=== PATIENT | male | born 1940 | race Two or more races ===

== ENCOUNTER 2025-01-07 02:25 | Inpatient (IN) | payer MEDICARE, SELFPAY ==
[2025-01-07] VITALS (33 sets, daily range): BP systolic 117–145; BP diastolic 32–92; PULSE 59–177; RESP 9–23; TEMP 36.3–37.3; O2SAT 94–100; BMI 22.7
--- NOTE | 2025-01-07 02:34 | EKG_ITS ---
[facility] Test Date: 2025-01-07 Pat Name: OTTO REGAN Department: Room: - Gender: Male Research Program Manager: : 1940 Requested By: ED Temporary Provider Order Number: [id number] Reading MD: ED Temporary Provider Measurements Intervals [place] Rate: 110 P: CA: QRS: -3 QRSD: 158 T: 114 QT: 379 QTc: 514 Interpretive Statements ATRIAL FIBRILLATION WITH RAPID VENTRICULAR RESPONSE LEFT BUNDLE BRANCH BLOCK [120+ ms QRS DURATION, 80+ ms Q/S IN V1/V2, 85+ ms R IN I/aVL/V5/V6] No previous ECG available for comparison /store/[email or web address]/[id number].pdf
--- NOTE | 2025-01-07 02:41 | XR_ITS ---
EXAMINATION: AP chest single view TECHNIQUE: AP portable upright chest single view Date and time: January 07, 2025, 0243 hours, comparison July 28, 2015. INDICATIONS: Shortness of breath today. FINDINGS: Mild CHF Moderate enlargement cardiac contour. Prominent vascular congestion including central vascular engorgement Interstitial pulmonary edema Prominent osteopenia IMPRESSION: Mild CHF
--- NOTE | 2025-01-07 02:41 | EDNOTE_ITS ---
ED SOB =RME/HPI General Chief Complaint: Shortness of Breath/Dyspnea Stated Complaint: SOB Time Seen by Provider: 01/07/25 02:37 Arrival date/time: 01/07/25 02:25 RME / HPI RME / HPI Narrative: DR. SMITH MAIN ED EVALUATION: Patient arrives by EMS after patient reports sudden onset shortness of breath, moderately in distress with oxygen saturations in the mid 80th percentile. Patient placed on monitor, transported with 2 serial nebulizer treatments en route with increase of O2 saturation to 95% on 6 L NC. No reported chest pain. PMH: Parkinson's Disease PSH: Non-contributory Allergies: None Social: Remote history of smoking, no alcoholism, no illicit drug abuse Related Data Home Medications ?Medication ?Instructions ?Recorded ?Confirmed bumetanide 1 mg tablet 1 mg PO BID 01/07/25 5 carbidopa ER 50 mg-levodopa 200 mg 1 tab PO TID 01/07/25 tablet,extended release furosemide 20 mg tablet (Lasix) 20 mg PO BID 01/07/25 01/07/25 losartan 50 mg tablet 50 mg PO QDAY 01/07/2501/07 rivaroxaban 20 mg tablet (Xarelto) 20 mg PO QDAY 01/0701/07/25 Allergies Allergy/AdvReac Type Severity Reaction Status Date / Time No Known Allergies Allergy Verified 01/07/25 02:36 Review of Systems Review of Systems Systems Reviewed: All systems reviewed, normal except as documented Past Medical History Past Medical History NEUROLOGIC: Positive Parkinson's Disease ED Exam Narrative Physical exam: GEN. APPEARANCE: The patient is alert awake oriented X-3, lying down comfortably, chronically ill-appearing. Patient has good eye contact. Patient is cooperative. Mild respiratory distress quite pale with mask-like facies. VITALS: All vitals were reviewed and the pulse ox is 96% on 2 L/minute via NC, which is normal according to my interpretation. HEENT: Normocephalic, atraumatic and nontender. Pupils are equal and reactive. Oral mucosa is moist. NECK: Supple, nontender, no meningismus, no JVD. There is no thyromegaly and no lymphadenopathy. CHEST: Nontender on palpation no deformity and no crepitus. CARDIOVASCULAR: Heart rapid irregular irregular, loud systolic murmur, no gallop rub or extra beats. LUNGS: Diminished breath sounds bilaterally with symmetrical chest rise. No intercostal subcostal retraction. No rales and no rhonchi. ABDOMEN: Soft, flat, nontender to palpation, no guarding or rebound tenderness. There are no abnormal masses palpated. No pulsatile masses or bruits. Active and normal bowel sounds. RECTAL: Normal appearing stool, hemmocult negative. EXTREMITIES: Normal inspection and palpation. 1+ edema. No cyanosis. Patient is able to move all 4 extremities well SKIN: Warm and dry, no rashes noted. MUSCULOSKELETAL: No lumbar or midline bony tenderness. There is no CVA tenderness. No paraspinal muscle spasm or tenderness. NEURO: Cranial nerves II through XII grossly intact. There are no focal neurologic deficits noted. GCS is 15 PSYCHIATRIC: Patient is in normal mood and affect, cooperative. LYMPHATICS: No major lymphadenopathy noted. Course Quality Measures none Orders Category Date Time Status COVID-19 Screening Questionnaire NOW Care 01/07/25 04:30 Active Knitter Hand STAT Care 01/07/25 02:38 Active Continuous Pulse Oximetry STAT Care 01/07/25 02:38 Active EKG (ED ONLY) *Do not use* NOW Care 01/07/25 02:34 Completed In and Out Catheter X1 Care 01/07/25 02:35 Completed In and Out Catheter X1PRN Care 01/07/25 02:37 Completed Insert IV NOW Care 01/07/25 02:35 Active Insert IV NOW Care 01/07/25 02:38 Active NPO STAT Care 01/07/25 02:38 Active Strict Intake and Output Routine Care 01/07/25 02:38 Ordered EKG (ED Only) Stat Exams 01/07/25 02:34 Draft XR chest 1V portable Stat Exams 01/07/25 02:41 Taken B-Type Natriuretic Peptide Stat Lab 01/07/25 02:45 Completed Blood Culture (Lab) Stat Lab 01/07/25 02:47 Received CBC Stat Lab 01/07/25 02:45 Completed Comprehensive Metabolic Panel Stat Lab 01/07/25 02:45 Completed D-Dimer Stat Lab 01/07/25 02:45 Completed Influenza A & B Rapid Panel Stat Lab 01/07/25 02:37 Completed LDH (Lactate Dehydrogenase) Stat Lab 01/07/25 02:45 Completed Lactate (Lactic Acid) Stat Lab 01/07/25 02:45 Results Lipase Stat Lab 01/07/25 02:45 Completed Magnesium Stat Lab 01/07/25 02:45 Completed Occult Blood, Stool (LAB) Stat Lab 01/07/25 04:29 Ordered Partial Thromboplastin Time Stat Lab 01/07/25 02:45 Completed Phosphorous Stat Lab 01/07/25 02:45 Completed Procalcitonin Stat Lab 01/07/25 02:45 Completed Prothrombin Time with INR Stat Lab 01/07/25 02:45 Completed Troponin I Stat Lab 01/07/25 02:45 Completed Urinalysis, C/S if Indicated Stat Lab 01/07/25 02:44 Completed Acetaminophen Licha [Tylenol Licha] Med 01/07/25 02:37 Active 1,000 mg PO Q8H PRN Diltiazem Inj [Cardizem Inj] Med 01/07/25 03:30 Active 5 mg IV X1 PRN Levofloxacin/D5w 750Mg Ivpb [Levaquin Ivpb] Med 01/07/25 02:37 Discontinued 750 mg in 150 ml IV X1 Piper/Tazo 3.375 gm Premix [Zosyn] Med 01/07/25 02:37 Discontinued 3.375 gm in 50 ml IV X1 Ringers Lactated 500 ml [Lactated Ringers] 500 ml Med 01/07/25 03:55 Discontinued IV 999 mls/hr Sodium Chloride 0.9% 500 ml [Ns] 500 ml Med 01/07/25 03:56 Discontinued IV 999 mls/hr Oxygen Delivery NOW RT 01/07/25 02:38 Active Vital Signs Vital signs: Vital Signs Temperature 99.1 F 01/07/25 02:37 Pulse Rate 116 H 01/07/25 02:37 Respiratory Rate 14 01/07/25 02:37 Blood Pressure 134/89 H 01/07/25 02:37 Pulse Oximetry (%) 96 01/07/25 02:37 Oxygen Delivery Method Nasal Cannula 01/07/25 02:37 Oxygen Flow Rate 2 01/07/25 02:37 PROCEDURES: Stool Hemoccult Procedural Steps Taken: stool placed in appropriate test area, developer placed on stool and control areas and controls appropriately positive and negative Hemoccult result: negative Shortness of Breath / Dyspnea MDM Narrative MDM Narrative:: Scribe Attestation: I, Emmy Oneil, am scribing for and in the presence of Dr. Smith. Provider Notation: Although this document has been carefully reviewed, there may still be some phonetic and other typographical errors. These errors are purely grammatical due to imperfections in the software program and should not be construed in any way to compromise the substance of the patient's medical care during this visit. Patient arrives by EMS after patient reports sudden onset shortness of breath, moderately in distress with oxygen saturations in the mid 80th percentile. Patient placed on monitor, transported with 2 serial nebulizer treatments en route with increase of O2 saturation to 95% on 6 L NC. Please see PE findings. Patient placed on microwave remote sensing scientist and underwent basic cardiac workup and to be in A-fib RVR treated with IV Diltiazem with prompt reduction in HR. EKG without signs of ischemia. Informal bedside US demonstrates EF 30-35% and collapsing IVC with inspiration suggested intravascular depletion, this is confirmed with elevated NaCl. No evidence of PNA or UTI. Patient treated with nebulizer therapy and IV steroids with an overall clinical improvement. Final diagnoses include A Fib RVR, COPD exacerbation, Anemia, and Dehydration. Patient data External records reviewed:: [facility] previous records (No prior ED records available for review) and EMS form Clinical information provided by:: patient and EMS Social determinants that could affect healthcare access:: none Patient has the following chronic illnesses:: Parkinson's Disease How is presenting disease/condition affected by chronic disease/condition?: exacerbated by Evaluation data The following diagnostics were reviewed and interpreted by me:: lab results, radiology exam(s) and EKG tracing(s) (Atrial fibrillation RVR with rate of 110 bpm, underlying LBBB, no clare ectopy, axis is leftward, per my interpretation.) Lab and/or radiology exams considered but not ordered:: None Interpretation Summary: RADIOLOGY Chest X-Ray: Pending official radiology report. Medications / Prescriptions Medications or Prescriptions considered but not ordered:: None Medication administrations:: Medication Administration History Acetaminophen (Acetaminophen Licha 325 Mg/10 Ml Udc) 1,000 mg PO Q8H PRN PRN Reason: Fever > 100.4 Stop: 02/06/25 02:36 Diltiazem HCl (Diltiazem Inj 5 Mg/Ml Vial 5 Ml) 5 mg IV X1 PRN PRN Reason: Tachycardia to a total of 30mg Stop: 02/06/25 03:29 Last Admin: 01/07/25 03:37 Dose: 5 mg Documented By: DT Discontinued Medications Piperacillin/Tazobactam/Dextrose (Zosyn) 3.375 gm in 50 mls @ 100 mls/hr IV X1 ONE Stop: 01/07/25 03:06 Last Infusion: 01/07/25 03:07 Dose: Infused Documented By: Admin: 01/07/25 02:47 Dose: 100 mls/hr Documented By: CAROLYNE Levofloxacin/Dextrose (Levaquin Ivpb) 750 mg in 150 mls @ 100 mls/hr IV X1 ONE Stop: 01/07/25 04:06 Last Admin: 01/07/25 03:25 Dose: 100 mls/hr Documented By: DT Lactated Ringer's (Lactated Ringers) 500 mls @ 999 mls/hr IV .Q31M ONE Stop: 01/07/25 04:25 Last Admin: 01/07/25 03:56 Dose: Not Given Documented By: DT Non-Admin Reason: Cancelled by Provider Sodium Chloride (Ns) 500 mls @ 999 mls/hr IV .Q31M ONE Stop: 01/07/25 04:26 Last Admin: 01/07/25 04:13 Dose: 999 mls/hr Documented By: DT See above if any Consultations Consultation(s) initiated? (list below): Yes Consultation #1 (Physician, Specialty, Details): Discussed with Dr. Nieves for admission. Reviewed the patient?s HPI, PMHx, lab and/or radiology results. Discussed treatment plan. Will consult an admission to the hospitalist. Time: 04:37 Diagnosis Shortness of Breath Differential Diagnosis: congestive heart failure, community acquired pneumonia and pulmonary embolism Most likely diagnosis given after review of the tests above:: A Fib RVR, COPD exacerbation, Anemia, and Dehydration. Admission Indicated Admission indicated?: indicated Explain why admission is indicated or not indicated:: A Fib RVR, COPD exacerbation, Anemia, and Dehydration. Admission Request Was there a request for admission?: Yes Admission Attestation Admission request attestation: Discussed case with [] from Hospitalist service regarding admission. Discussed patients ED course, exam findings, labs, and radiology results. The Hospitalist [agrees,declines] to accept the patient for admission. Disposition Plan Disposition Plan: Admit Critical Care Time Critical Care Time Critical Care Time: Yes Total Critical Care Time (min.): 45 Attestation: The high probability of sudden, clinically significant deterioration in the patient?s condition required the highest level of my preparedness to intervene urgently. The services I provided to this patient were to treat and/or prevent clinically significant deterioration. Services included the following: chart data review, reviewing nursing notes and/or old charts, documentation time, universal branch consultant collaboration regarding findings and treatment options, medication orders and management, direct patient care, vital sign assessments and ordering, interpreting and reviewing diagnostic studies and lab tests. Aggregate critical care time includes only time during which I was engaged in wo rk directly related to the patient?s care, as described above, whether at bedside or elsewhere in the Emergency Department. It did not include time spent performing other reported procedures or the services of residents, students, nurses or physician assistants. Discharge Plan Plan Patient Disposition: Admit Acute Care w/in Hospital Prescriptions/Referrals Prescriptions/Med Rec: No Action carbidopa-levodopa 50-200 mg tablet extended release 1 tab PO TID Rx Instructions: divide evenly over waking hours losartan 50 mg tablet 50 mg PO QDAY bumetanide 1 mg tablet 1 mg PO BID furosemide [Lasix] 20 mg tablet 20 mg PO BID Xarelto 20 mg tablet 20 mg PO QDAY Rx Instructions: must administer with evening meal Problem List Clinical Impression: Atrial fibrillation with RVR, COPD exacerbation, Dehydration, Anemia Patient/Caregiver Discharge Instructions Print Language: Colombian Stand Alone Forms: fflap Info., Patient Portal Info Letter
[2025-01-07] MEDS: PIPER/TAZO 3.375 GM PREMIX 3.375 GM/50 ML BAG IV (02:47)
[2025-01-07 02:52] LABS: Collection Type, Urine Clean Catch; Squamous Epithelial Cell,Urine 0 /hpf (0-5)
[2025-01-07 02:54] LABS: Lactate (Lactic Acid) 2.5 mMol/L (0.4-2.0)
[2025-01-07 02:57] LABS: Basophils # (Auto) 0.0 Thou/mm3 (0.0-0.2); Basophils % (Auto) 1 % (0-2.5); Eosinophils # (Auto) 0.1 Thou/mm3 (0.0-0.5); Eosinophils % (Auto) 2 % (0-10); Hematocrit 24.2 % (41.0-53.0); Immature Granulocytes Auto 0.02 Thou/mm3 (0.00-0.00); Lymphocytes # (Auto) 0.4 Thou/mm3 (1.0-4.8); Lymphocytes % (Auto) 12 % (10-50); Mean Corpuscular HGB Conc 28.9 g/dl (31.0-37.0); Mean Corpuscular Hemoglobin 22.0 pg (25.0-35.0); Mean Corpuscular Volume 76 fL (80-100); Monocytes # (Auto) 0.3 Thou/mm3 (0.0-0.8); Monocytes % (Auto) 8 % (0-12); Neutrophils # (Auto) 2.6 Thou/mm3 (1.8-7.7); Neutrophils % (Auto) 76 % (37-80); Nucleated Red Blood Cell # 0.02 Thou/mm3 (0.00-0.00); Nucleated Red Blood Cell % 1 /100 WBC (0); Platelet Count 147 Thou/mm3 (140-440); RDW Standard Deviation 56.9 fL (35.1-43.9); Red Blood Count 3.18 Miln/mm3 (4.50-5.90); White Blood Count 3.4 Thou/mm3 (3.8-10.6)
[2025-01-07 02:58] LABS: Bilirubin,Urine Negative (Negative); Blood,Urine Negative (Negative); Clarity,Urine Clear (Clear/Hazy); Color,Urine Yellow (Lt Yel-Yel); Culture Indicated,Urine Not Indicated; Glucose, Urine Negative (Negative); Ketones,Urine Negative (Negative); Leukocyte Esterase,Urine Negative (Negative); Nitrite,Urine Negative (Negative); PH,Urine 5.5 (5.0-7.0); Protein,Urine Trace (Neg - Trace); RBC,Urine 1 /hpf (0-3); Specific Gravity,Urine 1.027 (1.001-1.035); Urobilinogen,Urine 2.0 mg/dL (0.0-1.0); WBC,Urine 2 /hpf (0-5)
[2025-01-07 03:21] LABS: Hemoglobin 7.0 g/dL (13.5-16.0)
[2025-01-07 03:22] LABS: Alanine Aminotransferase 20 U/L (10-49); Albumin, Serum 4.6 gm/dL (3.4-4.8); Albumin/Globulin Ratio 2.3 (1.2-2.2); Alkaline Phosphatase 81 U/L (46-116); Anion Gap 13 (7-16); Aspartate Amino Transferase 27 U/L (0-34); BUN/Creatinine Ratio 27 Ratio (12-20); Bilirubin,Total 1.8 mg/dL (0.3-1.2); Blood Urea Nitrogen 27 mg/dL (9-23); Calcium 9.3 mg/dL (8.3-10.6); Calcium (Corrected) 9.3 mg/dL (8.5-10.1); Carbon Dioxide 22.6 mMol/L (20.0-31.0); Chloride 110 mMol/L (98-107); Creatinine (Component) 1.0 mg/dL (0.6-1.3); Estimated Creatinine Clearance 60.2 mL/min (>60); Globulin 2.0 gm/dL (2.3-3.5); Glucose 106 mg/dL (74-106); LDH (Lactate Dehydrogenase) 230 U/L (120-246); Lipase 25 U/L (12-53); Magnesium 2.2 mg/dL (1.6-2.6); Osmolality,Calculated 295 (275-295); Phosphorous 4.0 mg/dL (2.4-5.1); Potassium 4.7 mMol/L (3.4-5.1); Procalcitonin 0.08 ng/ml (0.0-0.49); Sodium 146 mMol/L (136-145); Total Protein 6.6 gm/dL (5.7-8.2); Troponin I 0.024 ng/mL (0.0-0.045); eGFR > 60 See Note
[2025-01-07 03:25] LABS: B-Type Natriuretic Peptide 878 pg/mL (0-100)
[2025-01-07] MEDS: LEVOFLOXACIN/D5W 750MG IVPB 750 MG/150 ML BAG 100 MG IV (03:25)
[2025-01-07 03:27] LABS: INR 1.6 (0.9-1.3); Partial Thromboplastin Time 36.2 Seconds (22.0-36.0); Prothrombin Time 16.0 Seconds (9.0-12.2)
[2025-01-07 03:27] LABS: Influenza A Ag Negative; Influenza B Ag Negative
[2025-01-07 03:36] LABS: D-Dimer < 250 ng/mL (<600)
[2025-01-07] MEDS: DILTIAZEM INJ 5 MG/ML VIAL 5 ML IV (03:37)
[2025-01-07] MEDS: SODIUM CHLORIDE 0.9% 500 ML 500 ML 999 ML IV (04:13)
[2025-01-07 04:52] LABS: OBS Card Lot # 0124; OBS Developer Lot # 750276; OBS Performed By MACIS3; OBS QC OK? Yes; Occult Blood, Stool Negative (Negative)
[2025-01-07] MEDS: ALBUTEROL/IPRATROPIUM (Duoneb) RT SOL 3 ML NEBU INH ×6 (04:58→23:37)
[2025-01-07] MEDS: DEXAMETHASONE SOD PHOS INJ 10 MG/ML VIAL IVP (05:04)
[2025-01-07] MEDS: DILTIAZEM CD 120 MG CAPCR PO (05:23)
--- NOTE | 2025-01-07 05:46 | ECHO_ITS ---
Patient Info Name: Marvin Jackson Age: 84 years : 1940 Gender: Male Ht: 188 cm Wt: 80 kg BSA: 2.05 m2 BP: 120 / 81 mmHg HR: 80 bpm Exam Date: 01/07/2025 1:40 PM Admit Date: 01/07/2025 Site: [facility] Patient Status: I Exam Type: CA echo doppler complete Charter Boat Operator: Racheal Nunez Ordering Physician: Mk Barton Study Info Indications CHF - Primary Location: [id number] Left Ventricular Outflow Tract Name Value Normal LVOT 2D LVOT Diameter 1.9 cm LVOT Doppler LVOT Peak Velocity 117 cm/s LVOT Mean Gradient 3 mmHg LVOT VTI 21 cm LVOT VTI/AV VTI Ratio 0.7 LVOT Stroke Volume 61 ml Pulmonic Valve Name Value Normal PV Doppler PV Peak Velocity 115 cm/s PV Regurgitation Doppler [place] Peak End Diastolic Velocity 105 cm/s Tricuspid Valve Name Value Normal TV Regurgitation Doppler TR Peak Velocity 331 cm/s Estimated PAP/RSVP RA Pressure 10 mmHg <=5 PA Systolic Pressure 54 mmHg <36 RV Systolic Pressure 54 mmHg <36 Aortic Valve Name Value Normal AV 2D/MM AV Cusp Sep (MM) 1.5 cm AV Doppler AV Peak Velocity 158 cm/s AV Mean Gradient 6 mmHg AV VTI 29 cm AV Area (Cont Eq VTI) 2.1 cm2 >=3.0 AV Area (Cont Eq Keshawn) 2.1 cm2 AV DI (Keshawn) 0.74 AV Regurgitation 2D LVOT Area 2.8 cm2 AV Regurgitation Doppler AR Decel [place] 180 cm/s2 AR PHT 657 ms Ventricles Name Value Normal LV Dimensions 2D/MM IVS Diastolic Thickness (2D) 1.0 cm 0.6-1.0 LVID Diastole (2D) 5.3 cm 4.2-5.8 LVIW Diastolic Thickness (2D) 1.2 cm 0.6-1.0 LVID Systole (2D) 4.7 cm 2.5-4.0 LVOT Diameter 1.9 cm LV Mass (2D Cubed) 227.73 g 88.00-224.00 LV Mass Index (2D Cubed) 111 g/m2 49-115 Relative Wall Thickness (2D) 0.45 <=0.42 IVS/LVIW Diastolic Thickness (2D) 0.83 0.00-1.50 LV Fractional Shortening/Ejection Fraction 2D/MM LV Fractional Shortening (2D) 11 % 25-43 LV EF (2D Teichholz) 24 % LV Diastolic Volume (4C MOD) 159 ml LV EF (4C MOD) 25 % LV Diastolic Volume (2C MOD) 151 ml LV EF (2C MOD) 42 % LV Diastolic Volume (BP MOD) 160 ml 62-150 LV Diastolic Volume Index (BP MOD) 78 ml/m2 34-74 LV Systolic Volume (BP MOD) 104 ml 21-61 LV Systolic Volume Index (BP MOD) 51 ml/m2 11-31 LV EF (BP MOD) 35 % 52-72 LV Diastolic Length (4C) 8.2 cm LV Systolic Length (4C) 7.7 cm LV Stroke Volume (4C MOD) 40 ml Atria Name Value Normal LA Dimensions LA Volume (4C A-L) 179 ml LA Volume (BP A-L) 192 ml Left Ventricle Left ventricular chamber dimension is normal. Left ventricular systolic function is normal with visually estimated ejection fraction of 55-60%. There is mild concentric hypertrophy noted in the left ventricle. The apex, and inferoseptal wall are hypokinetic. The basal inferior wall, mid inferior wall, basal anterior wall, mid anterior wall, basal anterolateral wall, mid anterolateral wall, basal anteroseptal, mid anteroseptal, basal inferolateral wall, and mid inferolateral wall are not scored. Left ventricular segmental wall motion is normal. The left ventricular diastolic function is grade II diastolic dysfunction. Right Ventricle Right ventricular chamber dimension is normal. Right ventricular systolic function is reduced. Left Atrium Left atrial chamber dimension is severely enlarged. Right Atrium Right atrial chamber dimension is severely enlarged. Aortic Valve The aortic valve is trileaflet. There is moderate aortic valve sclerosis. There is mild aortic valve stenosis with a peak velocity of 158 cm/s, mean gradient of 6 mmHg, and aortic valve area of 2.1 cm2. There is moderate aortic valve regurgitation. Pulmonic Valve The pulmonic valve is normal. There is no pulmonic valve stenosis. There is mild pulmonic regurgitation. Mitral Valve The mitral valve has thickened leaflets. There is no mitral valve stenosis. There is severe mitral valve regurgitation. Tricuspid Valve The tricuspid valve leaflets are normal. There is no significant tricuspid valve stenosis. There is moderate to severe tricuspid valve regurgitation. Moderate pulmonary hypertension, estimated pulmonary arterial systolic pressure is 54 mmHg and systemic blood pressure of 120 mmHg in systole. Pericardium/Pleural The pericardium appears normal. There is no pericardial effusion. No pleural effusion visualized. Inferior Vena Cava Normal inferior vena cava with >50% collapse upon inspiration consistent with normal right atrial pressure, 10 mmHg. Aorta The aortic measurements are indexed to age and body surface area. The aortic root at the sinus of Valsalva is not well visualized. The prox ascending aorta is not well visualized. Summary 1. Left ventricle size is normal and systolic function is normal. Visually estimated ejection fraction is 55-60%. There is grade II diastolic dysfunction.There is mild concentric hypertrophy noted. 2. Right ventricle size is normal and systolic function is reduced. Estimated PASP is 54 mmHg. Severe pulmonary hypertension. 3. There is moderate aortic valve sclerosis with mild stenosis and moderate regurgitation. 4. There is mild mitral valve stenosis and severe regurgitation. Thickened valves. 5. There is no significant tricuspid valve stenosis and moderate to severe regurgitation. 6. The left atrium is severely enlarged. The right atrium is severely enlarged. Report Signatures Finalized by Graham Hawkins on 01/09/2025 01:16 PM
[2025-01-07 05:49] LABS: Reflex Lactate? Y
--- NOTE | 2025-01-07 05:49 | ESHP_ITS ---
Documentation for date of: 01/07/25 [facility] History of Present Illness Chief complaint: Shortness of breath History of present illness: This is a 84-year-old male with past medical history of parkinsonism on levodopa carbidopa, atrial fibrillation on Xarelto presented to the ED with complaints of shortness of breath since last 5 days. At baseline he does not utilize oxygen at his home but uses walker to walk around. He complains his shortness of breath is worsening since last 5 days but denies any chest pain, chest tightness. He endorses occasional palpitations and occasional cough but denies any increased sputum volume, purulence. He denies any abdominal pain, nausea, vomiting, diarrhea, urinary urgency, urinary frequency, fever or any recent sick contacts. He denies any increased water intake, decreased urine output. Today ED visit vitals initial BP 134/89, pulse rate 116, respiratory 14,Temperature 99.1 F, saturating 80% on room air increased to 96% on 6 L of nasal cannula. Pertinent lab findings hemoglobin 17, hematocrit 24.2, MCV 76, MCH 22, MCHC 28.9, RDW 56.9. Sodium 146, chloride 110, BUN 27. PT/INR/APTT?16/1.6/36.2, lactate 2.5, total bilirubin?1.8, BNP 878,, D-dimer normal, troponin normal. Imaging findings chest x-ray showing mild vascular congestion and mild CHF, EKG showing A-fib with right ventricular response and left bundle branch block V1/V2. Plan given in ED levofloxacin 750 mg, pip-tazo 3.375 mg, NS 500 cc, diltiazem 125 mg, DuoNebs, dexamethasone 10 mg Past medical history: Parkinsonism on levodopa carbidopa. Atrial fibrillation takes Xarelto. Currently not taking any water pills. He used to take inhalers in the past but denies current use Social history: Used to smoke in the past but denies current smoking and endorses occasional drinking Family history: Noncontributory Allergy history: NKDA Review of Systems Review of Systems Systems Reviewed: All systems reviewed, normal except as documented Exam Vital Signs Temp Pulse Resp BP Pulse Ox O2 Del Method O2 Flow Rate 98.9 F 98 21 H 132/84 H 100 Nasal Cannula 5 01/07/25 04:20 01/07/25 05:23 01/07/25 05:01 01/07/25 05:23 01/07/25 05:01 01/07/25 04:20 01/07/25 05:01 Narrative Exam GENERAL: NAD, AAOx3 HEENT: Moist mucosa. Eyes open, symmetrical, & clear CARDIO: Rapid Irregular rhythm Noted. No Murmurs. PULM: wheezing noted on B/L Lung Veloz GI: Abdomen soft, nondistended, non Tender SKIN/MSK/EXT: No wounds/rashes/amputations, no pain on palpation.Edema on B/L legs upto knee 3+. Pedal pulses present B/L, B/L Chronic pigmentation seen upto the valenzuela . NEURO: AAOx3, no focal neuro deficits, able to move all 4 extremities, B/L resting Tremors Results: Labs 01/07/25 13:19 01/07/25 02:45 Labs: Short CBC 01/07/25 Range/Units 02:45 WBC 3.4 L (3.8-10.6) Thou/mm3 Hgb 7.0 L (13.5-16.0) g/dL Hct 24.2 L (41.0-53.0) % Plt Count 147 (140-440) Thou/mm3 BMP 01/07/25 02:45 Sodium 146 H Potassium 4.7 Chloride 110 H Carbon Dioxide 22.6 BUN 27 H Creatinine 1.0 Glucose 106 Calcium 9.3 Cardiac Enzymes 01/07/25 Range/Units 02:45 Troponin I 0.024 (0.0-0.045) ng/mL Liver Function 01/07/25 Range/Units 02:45 Total Bilirubin 1.8 H (0.3-1.2) mg/dL AST 27 (0-34) U/L ALT 20 (10-49) U/L Alkaline Phosphatase 81 (46-116) U/L Albumin 4.6 (3.4-4.8) gm/dL Urine 01/07/25 Range/Units 02:44 Urine Color Yellow (Lt Yel-Yel) Urine Clarity Clear (Clear/Hazy) Urine pH 5.5 (5.0-7.0) Ur Specific [place] 1.027 (1.001-1.035) Urine Protein Trace (Neg - Trace) Urine Glucose (UA) Negative (Negative) Quality Measures Quality Measures none Advance care planning discussed with:: patient Medications Home Medications and Allergies Home Medications ?Medication ?Instructions ?Recorded ?Confirmed ?Type bumetanide 1 mg tablet 1 mg PO BID 01/07/25 5 History carbidopa ER 50 mg-levodopa 200 mg 1 tab PO TID 01/07/25 History tablet,extended release furosemide 20 mg tablet (Lasix) 20 mg PO BID 01/07/25 01/07/25 History losartan 50 mg tablet 50 mg PO QDAY 01/07/2501/07 History rivaroxaban 20 mg tablet (Xarelto) 20 mg PO QDAY 01/0701/07/25 History Allergies Allergy/AdvReac Type Severity Reaction Status Date / Time No Known Allergies Allergy Verified 01/07/25 02:36 Visit Medications Acetaminophen (Acetaminophen Licha 325 Mg/10 Ml Udc) 1,000 mg PO Q8H PRN PRN Reason: Fever > 100.4 Stop: 02/06/25 02:36 Acetaminophen (Acetaminophen 325 Mg Tablet) 650 mg PO Q6H PRN PRN Reason: Fever >100.4 Stop: 02/06/25 05:38 Albuterol/Ipratropium (Albuterol/Ipratropium (Duoneb) Rt Licha 3 Ml Nebu) 3 ml INH Q4HRRT [facility] Stop: 02/06/25 06:59 Albuterol/Ipratropium (Albuterol/Ipratropium (Duoneb) Rt Licha 3 Ml Nebu) 3 ml INH Q2HR PRN PRN Reason: SHORTNESS OF BREATH OR WHEEZE Stop: 02/06/25 05:38 Carbidopa/Levodopa (Carbidopa/Levodopa Cr 50/200 Tabcr) 1 tab PO TID [facility] Stop: 02/06/25 05:59 Diltiazem HCl (Diltiazem Inj 5 Mg/Ml Vial 5 Ml) 5 mg IV X1 PRN PRN Reason: Tachycardia to a total of 30mg Stop: 02/06/25 03:29 Last Admin: 01/07/25 03:37 Dose: 5 mg Azithromycin 500 mg/ Sodium (Chloride) 250 mls @ 250 mls/hr IV QDAY [facility] Stop: 01/14/25 05:43 Losartan Potassium (Losartan Potassium 25 Mg Tablet) 50 mg PO QDAY [facility] Stop: 02/06/25 08:59 Methylprednisolone Sodium Succinate (Methylprednisolone Sod Succ 40 Mg/Ml Vial) 40 mg IVP QDAY NATHALY Stop: 01/14/25 08:59 Non-Formulary Medication (Rivaroxaban [Xarelto]) 20 mg PO QDAY NATHALY Stop: 02/06/25 08:59 Discontinued Medications Albuterol/Ipratropium (Albuterol/Ipratropium (Duoneb) Rt Licha 3 Ml Nebu) 3 ml INH X1 ONE Stop: 01/07/25 04:42 Last Admin: 01/07/25 04:58 Dose: 3 ml Dexamethasone Sodium Phosphate (Dexamethasone Sod Phos Inj 10 Mg/Ml Vial) 10 mg IVP X1 ONE Stop: 01/07/25 04:42 Last Admin: 01/07/25 05:04 Dose: 10 mg Diltiazem HCl (Diltiazem Cd 120 Mg Capcr) 120 mg PO X1 ONE Stop: 01/07/25 04:42 Last Admin: 01/07/25 05:23 Dose: 120 mg Piperacillin/Tazobactam/Dextrose (Zosyn) 3.375 gm in 50 mls @ 100 mls/hr IV X1 ONE Stop: 01/07/25 03:06 Last Infusion: 01/07/25 03:07 Dose: Infused Levofloxacin/Dextrose (Levaquin Ivpb) 750 mg in 150 mls @ 100 mls/hr IV X1 ONE Stop: 01/07/25 04:06 Last Infusion: 01/07/25 04:58 Dose: Infused Lactated Ringer's (Lactated Ringers) 500 mls @ 999 mls/hr IV .Q31M ONE Stop: 01/07/25 04:25 Last Admin: 01/07/25 03:56 Dose: Not Given Sodium Chloride (Ns) 500 mls @ 999 mls/hr IV .Q31M ONE Stop: 01/07/25 04:26 Last Infusion: 01/07/25 04:44 Dose: Infused Assessment & Plan Plan This is a 84-year-old male with past medical history of parkinsonism on levodopa carbidopa, atrial fibrillation on Xarelto presented to the ED with complaints of shortness of breath since last 5 days. He was admitted for shortness of breath and A-fib with RVR. # Acute hypoxic respiratory failure # 2/2 CHF exacerbation # COPD mild flare up Used to take inhalers in the past. Currently not taking any inhalers or any diuretics Shortness of breath since 5 days endorses occasional cough but denies any increased sputum volume, purulence. On examination pedal edema until the shins of bilateral legs. And wheezing present on the both lungs. SpO2 in the 80s on room air but increased to 96% on 6 L of oxygen on nasal cannula Troponin normal, BNP 878, D-dimer normal. ED given 500 cc of NS. ED doc did bedside ultrasound and found IVC collapsible so he gave 500 cc of NS.. Given levofloxacin, Zosyn and methylprednisolone in the ED. ?Starting on azithromycin 500 mg and Solu-Medrol 40 mg. ?Strict inputs and outputs ?Starting on furosemide 40 mg daily to diurese him # Atrial fibrillation with rapid ventricular response Denies any chest pain but endorses occasional palpitations On admission EKG shows atrial fibrillation with RVR in 110s He takes Xarelto 20 mg at home Given Cardizem 120 mg IV 5 mg p.o. in the ED -Troponin normal but trend troponin in view of A-fib with RVR ?Continue to monitor. # Microcytic hypochromic anemia Hemoglobin 7, hematocrit 24.0, MCV 76, MCH 22. Starting on transfusion of 1 unit of PRBC ?Continue to monitor and check posttransfusion H&H. ?Holding Xarelto in view of low hemoglobin. # Parkinsonism Bilateral resting tremors ?Continue his home medication levodopa carbidopa. ?Continue to monitor. # leukocytopenia His WBC 3.6. His WBC is hanging around 3.6 since 2019. ?Continue to monitor Code status: Full DVT prophylaxis: SCD Diet: Start the Diet after the swallow evaluation. Padilla: None Lines: PIV Supplemental O2: NC on 6L Disposition: Tele Discussed this case with my senior Dr. Nieves and my attending Dr. Kyleigh velasco MD PGY1 Attending Provider Attestation/Addendum After examination of the patient and review of the clinical data I feel that this patient needs admission to the hospital for further treatment/evaluation. Plan of care discussed with patient and is in agreement. I Jonathan Arizmendi MD, attest that I was physically present for betancourt portions of evaluation, and examined patient, labs and imagings and plan of care were discussed with IM residents team, and I agree with the findings and plans documented above.
[2025-01-07 06:19] LABS: Lactic Acid, 3 HR 2.0 mMol/L (0.4-2.0)
[2025-01-07] MEDS: AZITHROMYCIN INJ 500 MG in SODIUM CHLORIDE 0.9% 250 ML 250 ML 250 MG IV (06:19)
[2025-01-07] MEDS: FUROSEMIDE INJ 10 MG/ML 4ML VIAL 40 MG IVP (06:21)
[2025-01-07 07:08] LABS: Base Excess -4 (-3-3); HCO3 20 mEq/L (20-26); O2 Saturation 101 % (91-98); PCO2 28 mmHg (32.0-48.0); PO2 195 mmHg (83-108); pH, Arterial 7.46 (7.35-7.45)
[2025-01-07 07:09] LABS: Allen Test Performed/OK; Inspired O2, VO2 Liters 6 L/min; Puncture Site Right Radial
--- NOTE | 2025-01-07 08:21 | PC.NURSE ---
Report recieved from Jen BROWN. Pt. on 6 L NC satting 96-99%. Pt. is GCS of 14. at bedside, per Jen signed consent for blood transfusion. awaiting pt. arrival to unit.
[2025-01-07] MEDS: ACETAMINOPHEN 325 MG TABLET 650 MG PO (09:11)
[2025-01-07] MEDS: LOSARTAN POTASSIUM 25 MG TABLET 50 MG PO (09:12)
[2025-01-07] MEDS: CARBIDOPA/LEVODOPA CR 50/200 TABCR 1 TAB PO ×3 (09:13→21:00)
--- NOTE | 2025-01-07 09:16 | PC.CC ---
ASW attempted to complete an initial assessment with the pt, but pt was already moved to the floor and out of the ED. ASW attempted to contact pt Racheal Jackson [phone] but she was not available, as per the adult son named Marvin Jackson Jr. ASW proceeded to ask the initial questions with the pts son. Marvin Gillis stated he and the mother are the pts primary caretakers at home. Marvin Gillis stated the pts PCP is Dr. Keyes and does not see a medical provider for specialty. Marvin Gillis stated he and the pts do all the pts ADLs including bathing and grooming, cooking and cleaning. Pt uses a 4 wheel walker but as per Marvin Gillis. pt may need a wheel chair when he is ready for d/c. Per Marvin Gillis, pt does not use O2 at home and stated the pt is a Full Code Status. Marvin Gillis stated the pt resides in a house that has stairs, so the pt primarily downstairs. Pt has full support from his and adult son who resides in the home. Pts pharmacy is [facility]. Marvin Gillis stated that if the medical team were to recommend SNF, the pt and family would be open to SNF placement for Rehab purposes. Surrogate Decision Maker: , Racheal Jackson [phone] and son Marvin Jackson PCP: Dr. Keyes Pharmacy: [facility] Transportation: possibly EMS Needs: Possibly a wheel chair SNF placement is an option
[2025-01-07 09:45] LABS: Troponin I 0.020 ng/mL (0.0-0.045)
--- NOTE | 2025-01-07 10:16 | PC.NURSE ---
Dr. Bangura aware pt. HR fluctuates from 130s-180s. Pt. is Afib and history of Afib. Dr. Bangura states I will consult with my team about this.
--- NOTE | 2025-01-07 10:36 | ESPR_ITS ---
<Statement entered by Mk Barton MD - 01/08/25 07:53> I saw and examined patient personally and supervised PGY 1 resident, Dr. Bangura with formulating a management plan. I agree with the documentation with the exceptions as listed below. Patient was admitted for acute respite failure with hypoxia secondary to CHF exacerbation. Less likely COPD exacerbation as patient had no productive cough or increased sputum production. Started on diuresis with Lasix 40 mg IV daily. Strict input output charting, 1500 cc/day fluid restriction and 2 g sodium restricted diet in place. Plan of care discussed with Attending Dr. Rebecca Barton MD PGY 2 Disclaimer: This note was dictated by speech recognition. Minor errors in cloth baler may be present due to voice recognition software. Documentation for date of: 01/07/25 Subjective Subjective Interval history: No overnight events. Patient was examined at bedside; they appear A&Ox4 and in NAD. Vitals/labs today significant for WBC 3.4, Hgb 7.0, PT 16.0, INR 1.6, APTT 36.2, sodium 141->146, TBili 0.8->1.8, and BNP 878. ABG showed pH 7.46 and pCO2 28 (respiratory alkalosis). Physical exam notable for continued rapid irregular rhythm (however, repeat EKG showed rate-controlled atrial fibrillation), and JVD. Current plan is to continue IV Lasix for treatment of his CHF exacerbation and IV azithromycin and IV Solu-Medrol for his suspected COPD exacerbation. Plan Updates: -Consulted Cardiology (Dr. Anaya) for patient's new-onset atrial fibrillation w/ RVR, appreciate recommendations Exam Vital Signs Temp Pulse Resp BP Pulse Ox O2 Del Method O2 Flow Rate 97.6 F 114 H 16 126/86 H 99 Nasal Cannula 6 01/07/25 10:22 01/07/25 10:22 01/07/25 10:22 01/07/25 10:22 01/07/25 10:22 01/07/25 09:02 01/07/25 10:22 Narrative Exam GENERAL: NAD, AAOx3 HEENT: Moist mucosa. Eyes open, symmetrical, & clear CARDIO: Rapid irregular rhythm noted. No Murmurs. PULM: Wheezing noted on B/L lung Veloz GI: Abdomen soft, nondistended, nontender SKIN/MSK/EXT: No wounds/rashes/amputations, no pain on palpation. Edema on B/L legs up to knee 3+. Pedal pulses present B/L, B/L Chronic pigmentation seen up to the valenzuela . NEURO: AAOx3, no focal neuro deficits, able to move all 4 extremities, B/L resting Tremors Objective Labs 01/08/25 15:57 01/08/25 04:15 Labs: Laboratory Results - last 24 hr 01/07/25 01/07/25 01/07/25 02:37 02:44 02:45 WBC 3.4 L RBC 3.18 L Hgb 7.0 L Hct 24.2 L MCV 76 L MCH 22.0 L MCHC 28.9 L RDW Std Deviation 56.9 H Plt Count 147 Neut % (Auto) 76 Lymph % (Auto) 12 [place] % (Auto) 8 Eos % (Auto) 2 Baso % (Auto) 1 Neut # (Auto) 2.6 Lymph # (Auto) 0.4 L [place] # (Auto) 0.3 Eos # (Auto) 0.1 Baso # (Auto) 0.0 Immature Gran # (Auto) 0.02 H Absolute Nucleated RBC 0.02 H Immature Gran % 1 H Nucleated RBC % 1 H PT 16.0 H INR 1.6 H APTT 36.2 H D-Dimer < 250 Puncture Site ABG pH ABG pCO2 ABG pO2 ABG HCO3 ABG O2 Saturation ABG Base Excess Oxygen Liter Flow Sodium 146 H Potassium 4.7 Chloride 110 H Carbon Dioxide 22.6 Anion Gap 13 BUN 27 H Creatinine 1.0 Estim Creat Clear Calc 60.2 L eGFR > 60 BUN/Creatinine Ratio 27 H Glucose 106 Calculated Osmolality 295 Lactic Acid 2.5 H Calcium 9.3 Corrected Calcium 9.3 Phosphorus 4.0 Magnesium 2.2 Total Bilirubin 1.8 H AST 27 ALT 20 Alkaline Phosphatase 81 Lactate Dehydrogenase 230 Troponin I 0.024 B-Natriuretic Peptide 878 H* Total Protein 6.6 Albumin 4.6 Globulin 2.0 L Albumin/Globulin Ratio 2.3 H Lipase 25 Procalcitonin 0.08 Ur Collection Type Clean Catch Urine Color Yellow Urine Clarity Clear Urine pH 5.5 Ur Specific [place] 1.027 Urine Protein Trace Urine Glucose (UA) Negative Urine Ketones Negative Urine Blood Negative Urine Nitrite Negative Urine Bilirubin Negative Urine Urobilinogen (Auto) 2.0 Ur Leukocyte Esterase Negative Urine RBC 1 Urine WBC 2 Ur Squamous Epith Cells 0 Urine Bacteria None Ur Culture Indicated? Not Indicated Stool Occult Blood Influenza A (Rapid) Negative Influenza B (Rapid) Negative Blood Type Antibody Screen Crossmatch Blood Bank Wristband ID 01/07/25 01/07/25 01/07/25 04:36 06:14 06:21 WBC RBC Hgb Hct MCV MCH MCHC RDW Std Deviation Plt Count Neut % (Auto) Lymph % (Auto) [place] % (Auto) Eos % (Auto) Baso % (Auto) Neut # (Auto) Lymph # (Auto) [place] # (Auto) Eos # (Auto) Baso # (Auto) Immature Gran # (Auto) Absolute Nucleated RBC Immature Gran % Nucleated RBC % PT INR APTT D-Dimer Puncture Site ABG pH ABG pCO2 ABG pO2 ABG HCO3 ABG O2 Saturation ABG Base Excess Oxygen Liter Flow Sodium Potassium Chloride Carbon Dioxide Anion Gap BUN Creatinine Estim Creat Clear Calc eGFR BUN/Creatinine Ratio Glucose Calculated Osmolality Lactic Acid 2.0 Calcium Corrected Calcium Phosphorus Magnesium Total Bilirubin AST ALT Alkaline Phosphatase Lactate Dehydrogenase Troponin I B-Natriuretic Peptide Total Protein Albumin Globulin Albumin/Globulin Ratio Lipase Procalcitonin Ur Collection Type Urine Color Urine Clarity Urine pH Ur Specific [place] Urine Protein Urine Glucose (UA) Urine Ketones Urine Blood Urine Nitrite Urine Bilirubin Urine Urobilinogen (Auto) Ur Leukocyte Esterase Urine RBC Urine WBC Ur Squamous Epith Cells Urine Bacteria Ur Culture Indicated? Stool Occult Blood Negative Influenza A (Rapid) Influenza B (Rapid) Blood Type O Positive Antibody Screen NEGATIVE Crossmatch See Detail Blood Bank Wristband ID Yes 01/07/25 01/07/25 07:00 09:05 WBC RBC Hgb Hct MCV MCH MCHC RDW Std Deviation Plt Count Neut % (Auto) Lymph % (Auto) [place] % (Auto) Eos % (Auto) Baso % (Auto) Neut # (Auto) Lymph # (Auto) [place] # (Auto) Eos # (Auto) Baso # (Auto) Immature Gran # (Auto) Absolute Nucleated RBC Immature Gran % Nucleated RBC % PT INR APTT D-Dimer Puncture Site Right Radial ABG pH 7.46 H ABG pCO2 28 L ABG pO2 195 H ABG HCO3 20 ABG O2 Saturation 101 H ABG Base Excess -4 L Oxygen Liter Flow 6 Sodium Potassium Chloride Carbon Dioxide Anion Gap BUN Creatinine Estim Creat Clear Calc eGFR BUN/Creatinine Ratio Glucose Calculated Osmolality Lactic Acid Calcium Corrected Calcium Phosphorus Magnesium Total Bilirubin AST ALT Alkaline Phosphatase Lactate Dehydrogenase Troponin I 0.020 B-Natriuretic Peptide Total Protein Albumin Globulin Albumin/Globulin Ratio Lipase Procalcitonin Ur Collection Type Urine Color Urine Clarity Urine pH Ur Specific [place] Urine Protein Urine Glucose (UA) Urine Ketones Urine Blood Urine Nitrite Urine Bilirubin Urine Urobilinogen (Auto) Ur Leukocyte Esterase Urine RBC Urine WBC Ur Squamous Epith Cells Urine Bacteria Ur Culture Indicated? Stool Occult Blood Influenza A (Rapid) Influenza B (Rapid) Blood Type Antibody Screen Crossmatch Blood Bank Wristband ID ABG Interpretation ABG results: 01/07/25 07:00 ABG pH 7.46 H ABG pCO2 28 L ABG pO2 195 H ABG HCO3 20 ABG O2 Saturation 101 H ABG Base Excess -4 L Quality Measures Quality Measures none Advance care planning discussed with:: patient Assessment & Plan Assessment Current Active Medications: Generic Name Dose Route Start Last Admin Trade Name Freq PRN Reason Stop Dose Admin Acetaminophen 650 mg 01/07/25 09:02 01/07/25 09:11 Acetaminophen 325 Mg Tablet PO 02/06/25 05:38 650 mg Q6H PRN Administration Fever >100.4 or Pain 1-3 Albuterol/Ipratropium 3 ml 01/07/25 07:00 01/07/25 10:16 Albuterol/Ipratropium (Duoneb) Rt Licha 3 Ml Nebu INH 02/06/25 06:59 3 ml Q4HRRT NATHALY Administration Albuterol/Ipratropium 3 ml 01/07/25 05:39 Albuterol/Ipratropium (Duoneb) Rt Licha 3 Ml Nebu INH 02/06/25 05:38 Q2HR PRN SHORTNESS OF BREATH OR WHEEZE Carbidopa/Levodopa 1 tab 01/07/25 06:00 01/07/25 09:13 Carbidopa/Levodopa Cr 50/200 Tabcr PO 02/06/25 05:59 1 tab TID NATHALY Administration Diltiazem HCl 5 mg 01/07/25 03:30 01/07/25 03:37 Diltiazem Inj 5 Mg/Ml Vial 5 Ml IV 02/06/25 03:29 5 mg X1 PRN Administration Tachycardia to a total of 30mg Furosemide 40 mg 01/08/25 09:00 Furosemide Inj 10 Mg/Ml 4ml Vial IVP 02/07/25 08:59 QDAY NATHALY Losartan Potassium 50 mg 01/07/25 09:00 01/07/25 09:12 Losartan Potassium 25 Mg Tablet PO 02/06/25 08:59 50 mg QDAY NATHALY Administration Plan This is a 84-year-old male with past medical history of parkinsonism on levodopa carbidopa, atrial fibrillation on Xarelto presented to the ED with complaints of shortness of breath since last 5 days. He was admitted for shortness of breath and A-fib with RVR. # Acute hypoxic respiratory failure # CHF exacerbation, less likely COPD exacerbation Used to take inhalers in the past. Currently not taking any inhalers or any diuretics Shortness of breath since 5 days endorses occasional cough but denies any increased sputum volume, purulence. On examination pedal edema until the shins of bilateral legs. And wheezing present on the both lungs. SpO2 in the 80s on room air but increased to 96% on 6 L of oxygen on nasal cannula Troponin normal, BNP 878, D-dimer normal. ED given 500 cc of NS. ED doc did bedside ultrasound and found IVC collapsible so he gave 500 cc of NS.. Given levofloxacin, Zosyn and methylprednisolone in the ED. Due to elevated BNP, JVD on exam, and CXR, most likely primary contributor to acute respiratory failure is CHF exacerbation CHADS-VASC: 4, HAS-BLED: 2 Rx: ?IV azithromycin 500 mg and IV Solu-Medrol 40 mg discontinued ?Strict inputs and outputs ?Continue IV furosemide 40 mg daily to diurese him -Fluid restriction 1500 mL/day -Duoneb breathing treatments q4HRRT # Atrial fibrillation with rapid ventricular response Denies any chest pain but endorses occasional palpitations On admission EKG shows atrial fibrillation with RVR in 110s He takes Xarelto 20 mg at home Given Cardizem 120 mg IV 5 mg p.o. in the ED Dx: -01/07 repeat echo ordered, showed ___ Rx: -Consulted Cardiology (Dr. Anaya) for patient's new-onset atrial fibrillation w/ RVR, appreciate recommendations -Amiodarone drip not needed at this time due to seemingly well rate-controlled atrial fibrillation of HR 80-90s # Microcytic hypochromic anemia Hemoglobin 7, hematocrit 24.0, MCV 76, MCH 22. Type and screen completed Rx: ?Continue to monitor and check posttransfusion H&H. ?Holding Xarelto in view of low hemoglobin. # Parkinsonism Bilateral resting tremors Rx: ?Continue his home medication levodopa carbidopa. ?Aspiration precautions -Head of bed elevation 30 degrees # Leukocytopenia His WBC 3.6. His WBC is hanging around 3.6 since 2019. ?Continue to monitor #Hypertension Admission BP 134/89 Currently 145/79 Rx: -PO losartan 50 mg qD Code status: Full DVT prophylaxis: SCD Diet: Dysphagia 3 - Advanced Padilla: Present Disposition: Tele Discussed this case with my senior Dr. Barton and my attending Dr. Rebecca Bangura DO (PGY-1) Attending Provider Attestation/Addendum I have seen and examined the patient. I was physically present for the betancourt portions of the services provided including history, physical exam, diagnosis, treatment plans and orders. I agree with assessment and plan of care as documented by residents. Even though this this note was carefully revised there may still be minor errors in cloth baler due to voice recognition software. Tram Fernandez MD
--- NOTE | 2025-01-07 11:18 | EKG_ITS ---
[facility] Test Date: 2025-01-07 Pat Name: OTTO REGAN [facility] Gender: Male Medical Insurance Claims Processor: BRAN : 1940 Requested By: Regina Gray Order Number: [id number] Reading MD: Regina Gray Measurements Intervals [place] Rate: 81 P: [place]: QRS: -12 QRSD: 169 T: 106 QT: 444 QTc: 518 Interpretive Statements ATRIAL FIBRILLATION LEFT BUNDLE BRANCH BLOCK Compared to ECG 01/07/2025 02:34:26 No significant changes /store/S0/[id number]
[2025-01-07 14:05] LABS: Hematocrit 23.9 % (41.0-53.0)
[2025-01-07 14:16] LABS: Hemoglobin 7.2 g/dL (13.5-16.0)
[2025-01-07 15:52] LABS: Troponin I < 0.020 ng/mL (0.0-0.045)
--- NOTE | 2025-01-07 16:02 | PC.NURSE ---
Called to make sure Dr. Bangura aware of h&h redraw level of 7.[address] seo. No new orders at this time. RN also pointed out trend of low WBC over last few years for pt.
--- NOTE | 2025-01-07 16:21 | PC.NURSE ---
Called to Dr. William to see if we can stop DC order for pt. since we are waiting for authorization and per Polly SS will not receive authorization until tomorrow. Did not get an answer to this question.
--- NOTE | 2025-01-07 16:33 | PD.IMCONS ---
HPI Data of Consult Requesting Physician: Tram Fernandez MD Primary Care Provider: Morris Keyes MD Consult Narrative History of present illness: This is a 84-year-old male with past medical history of parkinsonism on levodopa carbidopa, atrial fibrillation on Xarelto pt seen in the ER with sob ; no chest pain c/o of palpitations EKG afib with HR 110 0- improved to 70-80 troponin negative cc:: cc: Tram Fernandez MD Meds Home Medications and Allergies Home Medications ?Medication ?Instructions ?Recorded ?Confirmed ?Type bumetanide 1 mg tablet 1 mg PO BID 01/07/25 01/07/25 History carbidopa ER 50 mg-levodopa 200 mg 1 tab PO TID 01/07/25 01/07/25 History tablet,extended release furosemide 20 mg tablet (Lasix) 20 mg PO BID 01/07/25 01/07/25 History losartan 50 mg tablet 50 mg PO QDAY 01/07/25 01/07/25 History rivaroxaban 20 mg tablet (Xarelto) 20 mg PO QDAY 01/07/25 01/07/25 History Allergies Allergy/AdvReac Type Severity Reaction Status Date / Time No Known Allergies Allergy Verified 01/07/25 02:36 Exam Vital Signs Temp Pulse Resp BP Pulse Ox O2 Del Method O2 Flow Rate 97.5 F 73 18 145/79 H 100 Nasal Cannula 5 01/07/25 15:52 01/07/25 16:00 01/07/25 15:52 01/07/25 15:52 01/07/25 15:52 01/07/25 15:52 01/07/25 15:52 Routine HEENT Exam Head: Present normocephalic and atraumatic Eye: Present EOMI and PERRL ENT: Present mucous membranes moist Routine Neck Exam Neck: Present supple and trachea midline Routine Respiratory Exam Respiratory: Present chest non-tender, lungs clear, normal breath sounds and no resp distress Routine Cardiovascular Exam Cardiovascular: Present RRR Routine Abdominal Exam Abdominal: Present soft and normoactive bowel sounds Routine Extremities Exam Extremities: Present full ROM Routine Skin Exam Skin: Present intact, dry and warm Routine Neurological Exam Neurological: Present alert, oriented X3 and CN II-XII intact Routine Psychiatric Exam Psychiatric: Present normal affect and normal thought process Results Labs 01/07/25 13:19 01/07/25 02:45 Labs: Short CBC 01/07/25 01/07/25 Range/Units 02:45 13:19 WBC 3.4 L (3.8-10.6) Thou/mm3 Hgb 7.0 L 7.2 L (13.5-16.0) g/dL Hct 24.2 L 23.9 L (41.0-53.0) % Plt Count 147 (140-440) Thou/mm3 BMP 01/07/25 02:45 Sodium 146 H Potassium 4.7 Chloride 110 H Carbon Dioxide 22.6 BUN 27 H Creatinine 1.0 Glucose 106 Calcium 9.3 Cardiac Enzymes 01/07/25 01/07/25 01/07/25 Range/Units 02:45 09:05 14:51 Troponin I 0.024 0.020 < 0.020 (0.0-0.045) ng/mL Liver Function 01/07/25 Range/Units 02:45 Total Bilirubin 1.8 H (0.3-1.2) mg/dL AST 27 (0-34) U/L ALT 20 (10-49) U/L Alkaline Phosphatase 81 (46-116) U/L Albumin 4.6 (3.4-4.8) gm/dL Urine 01/07/25 Range/Units 02:44 Urine Color Yellow (Lt Yel-Yel) Urine Clarity Clear (Clear/Hazy) Urine pH 5.5 (5.0-7.0) Ur Specific [place] 1.027 (1.001-1.035) Urine Protein Trace (Neg - Trace) Urine Glucose (UA) Negative (Negative) ABG Interpretation ABG results: 01/07/25 07:00 ABG pH 7.46 H ABG pCO2 28 L ABG pO2 195 H ABG HCO3 20 ABG O2 Saturation 101 H ABG Base Excess -4 L Assessment and Plan Assessment and plan (1) Anemia: Status: Acute (2) Dehydration: Status: Acute (3) COPD exacerbation: Status: Acute (4) Atrial fibrillation with RVR: Status: Acute Additional Assessment & Plan Additional Plan: continue diltiazem consider anticoagulation troponin negative echo recommended
[2025-01-08] VITALS (15 sets, daily range): BP systolic 116–139; BP diastolic 77–92; PULSE 65–139; RESP 12–22; TEMP 36.3–36.7; O2SAT 95–100; BMI 23.8
[2025-01-08] MEDS: ALBUTEROL/IPRATROPIUM (Duoneb) RT SOL 3 ML NEBU INH ×6 (03:28→23:06)
[2025-01-08] MEDS: CARBIDOPA/LEVODOPA CR 50/200 TABCR 1 TAB PO ×3 (05:05→23:14)
[2025-01-08 05:42] LABS: Basophils # (Auto) 0.0 Thou/mm3 (0.0-0.2); Basophils % (Auto) 0 % (0-2.5); Eosinophils # (Auto) 0.0 Thou/mm3 (0.0-0.5); Eosinophils % (Auto) 0 % (0-10); Hematocrit 25.1 % (41.0-53.0); Immature Granulocytes Auto 0.01 Thou/mm3 (0.00-0.00); Lymphocytes # (Auto) 0.2 Thou/mm3 (1.0-4.8); Lymphocytes % (Auto) 4 % (10-50); Mean Corpuscular HGB Conc 30.3 g/dl (31.0-37.0); Mean Corpuscular Hemoglobin 23.1 pg (25.0-35.0); Mean Corpuscular Volume 76 fL (80-100); Monocytes # (Auto) 0.3 Thou/mm3 (0.0-0.8); Monocytes % (Auto) 8 % (0-12); Neutrophils # (Auto) 3.6 Thou/mm3 (1.8-7.7); Neutrophils % (Auto) 88 % (37-80); Nucleated Red Blood Cell # 0.03 Thou/mm3 (0.00-0.00); Nucleated Red Blood Cell % 1 /100 WBC (0); Platelet Count 121 Thou/mm3 (140-440); RDW Standard Deviation 53.2 fL (35.1-43.9); Red Blood Count 3.29 Miln/mm3 (4.50-5.90); White Blood Count 4.1 Thou/mm3 (3.8-10.6)
[2025-01-08 05:47] LABS: Hemoglobin 7.6 g/dL (13.5-16.0)
[2025-01-08 06:28] LABS: Alanine Aminotransferase < 7 U/L (10-49); Albumin, Serum 4.1 gm/dL (3.4-4.8); Albumin/Globulin Ratio 2.4 (1.2-2.2); Alkaline Phosphatase 66 U/L (46-116); Anion Gap 13 (7-16); Aspartate Amino Transferase 19 U/L (0-34); BUN/Creatinine Ratio 26 Ratio (12-20); Bilirubin,Total 2.0 mg/dL (0.3-1.2); Blood Urea Nitrogen 26 mg/dL (9-23); Calcium 9.2 mg/dL (8.3-10.6); Calcium (Corrected) 9.2 mg/dL (8.5-10.1); Carbon Dioxide 23.5 mMol/L (20.0-31.0); Chloride 107 mMol/L (98-107); Creatinine (Component) 1.0 mg/dL (0.6-1.3); Estimated Creatinine Clearance 61.4 mL/min (>60); Globulin 1.7 gm/dL (2.3-3.5); Glucose 119 mg/dL (74-106); Magnesium 2.1 mg/dL (1.6-2.6); Osmolality,Calculated 290 (275-295); Phosphorous 3.7 mg/dL (2.4-5.1); Potassium 4.2 mMol/L (3.4-5.1); Sodium 143 mMol/L (136-145); Total Protein 5.8 gm/dL (5.7-8.2); eGFR > 60 See Note
--- NOTE | 2025-01-08 07:31 | PD.IMPROG ---
Documentation for date of: 01/08/25 Subjective Subjective Interval history: Patient's heart rate is 70-80 atrial fibrillation Exam Vital Signs Temp Pulse Resp BP Pulse Ox O2 Del Method O2 Flow Rate 97.5 F 80 19 119/77 100 Nasal Cannula 3 01/08/25 04:00 01/08/25 07:03 01/08/25 07:03 01/08/25 04:00 01/08/25 07:03 01/08/25 04:00 01/08/25 07:03 Routine HEENT Exam Head: Present normocephalic and atraumatic Eye: Present EOMI and PERRL ENT: Present mucous membranes moist Routine Neck Exam Neck: Present supple and trachea midline Routine Respiratory Exam Respiratory: Present chest non-tender, lungs clear, normal breath sounds and no resp distress Routine Cardiovascular Exam Cardiovascular: Present RRR Routine Abdominal Exam Abdominal: Present soft and normoactive bowel sounds Routine Extremities Exam Extremities: Present full ROM Routine Skin Exam Skin: Present intact, dry and warm Routine Neurological Exam Neurological: Present alert, oriented X3 and CN II-XII intact Routine Psychiatric Exam Psychiatric: Present normal affect and normal thought process Objective Labs 01/08/25 04:15 01/08/25 04:15 Labs: Laboratory Results - last 24 hr 01/07/25 01/07/25 01/07/25 06:21 09:05 13:19 WBC RBC Hgb 7.2 L Hct 23.9 L MCV MCH MCHC RDW Std Deviation Plt Count Neut % (Auto) Lymph % (Auto) [place] % (Auto) Eos % (Auto) Baso % (Auto) Neut # (Auto) Lymph # (Auto) [place] # (Auto) Eos # (Auto) Baso # (Auto) Immature Gran # (Auto) Absolute Nucleated RBC Immature Gran % Nucleated RBC % Sodium Potassium Chloride Carbon Dioxide Anion Gap BUN Creatinine Estim Creat Clear Calc eGFR BUN/Creatinine Ratio Glucose Calculated Osmolality Calcium Corrected Calcium Phosphorus Magnesium Total Bilirubin AST ALT Alkaline Phosphatase Troponin I 0.020 Total Protein Albumin Globulin Albumin/Globulin Ratio Blood Type O Positive Antibody Screen NEGATIVE Crossmatch See Detail Blood Bank Wristband ID Yes 01/07/25 01/08/25 14:51 04:15 WBC 4.1 RBC 3.29 L Hgb 7.6 L Hct 25.1 L MCV 76 L MCH 23.1 L MCHC 30.3 L RDW Std Deviation 53.2 H Plt Count 121 L Neut % (Auto) 88 H Lymph % (Auto) [address] [place] % (Auto) 8 Eos % (Auto) 0 Baso % (Auto) 0 Neut # (Auto) 3.6 Lymph # (Auto) 0.[address] [place] # (Auto) 0.3 Eos # (Auto) 0.0 Baso # (Auto) 0.0 Immature Gran # (Auto) 0.01 H Absolute Nucleated RBC 0.03 H Immature Gran % 0 Nucleated RBC % 1 H Sodium 143 Potassium 4.2 D Chloride 107 Carbon Dioxide 23.5 Anion Gap 13 BUN 26 H Creatinine 1.0 Estim Creat Clear Calc 61.4 eGFR > 60 BUN/Creatinine Ratio 26 H Glucose 119 H Calculated Osmolality 290 Calcium 9.2 Corrected Calcium 9.2 Phosphorus 3.7 Magnesium 2.1 Total Bilirubin 2.0 H AST 19 ALT < 7 L Alkaline Phosphatase 66 Troponin I < 0.020 Total Protein 5.8 Albumin 4.1 D Globulin 1.7 L Albumin/Globulin Ratio 2.4 H Blood Type Antibody Screen Crossmatch Blood Bank Wristband ID ABG Interpretation ABG results: 01/07/25 07:00 ABG pH 7.46 H ABG pCO2 28 L ABG pO2 195 H ABG HCO3 20 ABG O2 Saturation 101 H ABG Base Excess -4 L Assessment & Plan A&P Narrative continue diltiazem consider anticoagulation troponin negative echo recommended Time Spent With Patient Time: Total time spent is greater than 50% in coordination of care (as documented) at patient's floor/unit and/or counseling patient:
[2025-01-08] MEDS: FUROSEMIDE INJ 10 MG/ML 4ML VIAL 40 MG IVP (08:29)
[2025-01-08] MEDS: LOSARTAN POTASSIUM 25 MG TABLET 50 MG PO (08:30)
--- NOTE | 2025-01-08 11:21 | ESPR_ITS ---
<Statement entered by Mk Barton MD - 01/08/25 19:28> I saw and examined patient personally and supervised PGY 1 resident, Dr. Bangura with formulating a management plan. I agree with the documentation with the exceptions as listed below. This is a 84-year-old male with past medical history of parkinsonism on levodopa carbidopa, atrial fibrillation on Xarelto presented to the ED with complaints of shortness of breath since last 5 days. He was admitted for shortness of breath and A-fib with RVR. Problem list: 1. Acute respiratory failure with hypoxia secondary to acute decompensated congestive heart failure exacerbation?resolving 2. Paroxysmal atrial fibrillation, rate controlled on anticoagulation 3. Microcytic anemia 4. History of parkinsonism Regards to patient's acute resp failure with hypoxia secondary to acute decompensated CHF exacerbation, currently on diuresis with Lasix 40 mg IV daily. Patient had a +150 cc fluid balance in past 24 hours. Nurses were concerned patient was confused today. Upon assessment patient was ANO x 3 and following commands. He was tremulous and displaying typical parkinsonism features of pill-rolling and resting tremors. Patient was also laying flat in bed, we adjusted the angle to 90 degrees and assisted him with feeding. We then informed the nurses to continue assisting him with his meal. With regards to patient's paroxysmal atrial fibrillation, his home medication Xarelto was restarted. Also started metoprolol succinate 25 mg p.o. daily as part of GDMT. Transthoracic echocardiogram was ordered and currently pending read. Once patient's heart rates and hypoxia resolved, anticipate discharge within next 24 to 48 hours. Plan of care discussed with Attending Dr. Rebecca Barton MD PGY 2 Disclaimer: This note was dictated by speech recognition. Minor errors in doughnut icer may be present due to voice recognition software. Documentation for date of: 01/08/25 Subjective Subjective Interval history: No overnight events. Patient was examined at bedside; they appear A&Ox3 and in NAD. Vitals/labs today significant for Hgb 7.2->7.6 (later 9.2), plt# 147->121, TBili 1.8->2.0. On physical exam, patient did not report orthopnea when he was laid flat in his bed and all other findings were unchanged from prior day. In the morning, patient's hemoglobin was noted to have only slightly increased from 7.2->7.6 despite pRBC transfusion x 2 which prompted lab work-up orders including: iron panel, ferritin, reticulocyte count, LDH, B12, folate, and a repeat H&H at 16:00. However, repeat H&H came back showing Hgb 9.2 which is reassuring and lowers concern for active bleeding or other hemolytic processes. Cardiology (Dr. Anaya) was consulted regarding patient's rate-controlled atrial fibrillation (HR 70-80) and recommended restarting patient's home anticoagulation of PO Xarelto 20 mg qD. He was also started on PO metoprolol succinate XL 25 mg qD. 01/07 repeat echocardiogram still pending. In terms of management, patient will continue being treated with IV Lasix 40 mg qD, fluid restriction 1500 cc/day, 2 g sodium restriction, and have his fluid status monitored via strict I&O. Due to lower suspicion for COPD exacerbation, patient had his IV Solu-Medrol 40 mg and his IV azithromycin 500 mg discontinued. Exam Vital Signs Temp Pulse Resp BP Pulse Ox O2 Del Method O2 Flow Rate 97.6 F 73 12 133/82 H 100 Nasal Cannula 2 01/08/25 08:00 01/08/25 10:19 01/08/25 10:19 01/08/25 08:30 01/08/25 10:19 01/08/25 08:00 01/08/25 10:19 Narrative Exam GENERAL: NAD, AAOx3 HEENT: Moist mucosa. Eyes open, symmetrical, & clear CARDIO: Slightly tachycardic rate and irregular rhythm noted. No Murmurs. PULM: Bilateral lungs seem more clear to auscultation than days prior. GI: Abdomen soft, nondistended, nontender SKIN/MSK/EXT: No wounds/rashes/amputations, no pain on palpation. Edema on B/L legs up to knee 3+. Pedal pulses present B/L, B/L Chronic pigmentation seen up to the valenzuela . NEURO: No focal neuro deficits, able to move all 4 extremities, B/L resting Tremors Objective Labs 01/09/25 04:50 01/09/25 04:50 Labs: Laboratory Results - last 24 hr 01/07/25 01/07/25 01/07/25 06:21 13:19 14:51 WBC RBC Hgb 7.2 L Hct 23.9 L MCV MCH MCHC RDW Std Deviation Plt Count Neut % (Auto) Lymph % (Auto) [place] % (Auto) Eos % (Auto) Baso % (Auto) Neut # (Auto) Lymph # (Auto) [place] # (Auto) Eos # (Auto) Baso # (Auto) Immature Gran # (Auto) Absolute Nucleated RBC Immature Gran % Nucleated RBC % Sodium Potassium Chloride Carbon Dioxide Anion Gap BUN Creatinine Estim Creat Clear Calc eGFR BUN/Creatinine Ratio Glucose Calculated Osmolality Calcium Corrected Calcium Phosphorus Magnesium Total Bilirubin AST ALT Alkaline Phosphatase Troponin I < 0.020 Total Protein Albumin Globulin Albumin/Globulin Ratio Blood Type O Positive Antibody Screen NEGATIVE Crossmatch See Detail Blood Bank Wristband ID Yes 01/08/25 04:15 WBC 4.1 RBC 3.29 L Hgb 7.6 L Hct 25.1 L MCV 76 L MCH 23.1 L MCHC 30.3 L RDW Std Deviation 53.2 H Plt Count 121 L Neut % (Auto) 88 H Lymph % (Auto) 4 L [place] % (Auto) 8 Eos % (Auto) 0 Baso % (Auto) 0 Neut # (Auto) 3.6 Lymph # (Auto) 0.2 L [place] # (Auto) 0.3 Eos # (Auto) 0.0 Baso # (Auto) 0.0 Immature Gran # (Auto) 0.01 H Absolute Nucleated RBC 0.03 H Immature Gran % 0 Nucleated RBC % 1 H Sodium 143 Potassium 4.2 D Chloride 107 Carbon Dioxide 23.5 Anion Gap 13 BUN 26 H Creatinine 1.0 Estim Creat Clear Calc 61.4 eGFR > 60 BUN/Creatinine Ratio 26 H Glucose 119 H Calculated Osmolality 290 Calcium 9.2 Corrected Calcium 9.2 Phosphorus 3.7 Magnesium 2.1 Total Bilirubin 2.0 H AST 19 ALT < 7 L Alkaline Phosphatase 66 Troponin I Total Protein 5.8 Albumin 4.1 D Globulin 1.7 L Albumin/Globulin Ratio 2.4 H Blood Type Antibody Screen Crossmatch Blood Bank Wristband ID ABG Interpretation ABG results: 01/07/25 07:00 ABG pH 7.46 H ABG pCO2 28 L ABG pO2 195 H ABG HCO3 20 ABG O2 Saturation 101 H ABG Base Excess -4 L Quality Measures Quality Measures none Advance care planning discussed with:: patient Assessment & Plan Assessment Current Active Medications: Generic Name Dose Route Start Last Admin Trade Name Freq PRN Reason Stop Dose Admin Acetaminophen 650 mg 01/07/25 09:02 01/07/25 09:11 Acetaminophen 325 Mg Tablet PO 02/06/25 05:38 650 mg Q6H PRN Administration Fever >100.4 or Pain 1-3 Albuterol/Ipratropium 3 ml 01/07/25 07:00 01/08/25 10:19 Albuterol/Ipratropium (Duoneb) Rt Licha 3 Ml Nebu INH 02/06/25 06:59 3 ml Q4HRRT NATHALY Administration Albuterol/Ipratropium 3 ml 01/07/25 05:39 Albuterol/Ipratropium (Duoneb) Rt Licha 3 Ml Nebu INH 02/06/25 05:38 Q2HR PRN SHORTNESS OF BREATH OR WHEEZE Carbidopa/Levodopa 1 tab 01/07/25 06:00 01/08/25 05:05 Carbidopa/Levodopa Cr 50/200 Tabcr PO 02/06/25 05:59 1 tab TID NATHALY Administration Diltiazem HCl 5 mg 01/07/25 03:30 01/07/25 03:37 Diltiazem Inj 5 Mg/Ml Vial 5 Ml IV 02/06/25 03:29 5 mg X1 PRN Administration Tachycardia to a total of 30mg Furosemide 40 mg 01/08/25 09:00 01/08/25 08:29 Furosemide Inj 10 Mg/Ml 4ml Vial IVP 02/07/25 08:59 40 mg QDAY NATHALY Administration Losartan Potassium 50 mg 01/07/25 09:00 01/08/25 08:30 Losartan Potassium 25 Mg Tablet PO 02/06/25 08:59 50 mg QDAY NATHALY Administration Plan This is a 84-year-old male with past medical history of parkinsonism on levodopa carbidopa, atrial fibrillation on Xarelto presented to the ED with complaints of shortness of breath since last 5 days. He was admitted for shortness of breath and A-fib with RVR. # Acute hypoxic respiratory failure # Acute decompensated CHF exacerbation, improving Used to take inhalers in the past. Currently not taking any inhalers or any diuretics Shortness of breath since 5 days endorses occasional cough but denies any increased sputum volume, purulence. On examination pedal edema until the shins of bilateral legs. And wheezing present on the both lungs. SpO2 in the 80s on room air but increased to 96% on 6 L of oxygen on nasal cannula Troponin normal, BNP 878, D-dimer normal. ED given 500 cc of NS. ED doc did bedside ultrasound and found IVC collapsible so he gave 500 cc of NS.. Given levofloxacin, Zosyn and methylprednisolone in the ED. Due to elevated BNP, JVD on exam, and CXR, most likely primary contributor to acute respiratory failure is CHF exacerbation CHADS-VASC: 4, HAS-BLED: 2 Rx: -Stopped antibiotics and steroids due to low suspicion for COPD exacerbation ?Strict inputs and outputs, 01/08 fluid balance +150 cc, cumulative -705 cc ?Continue IV furosemide 40 mg daily to diurese him -Fluid restriction 1500 mL/day -Duoneb breathing treatments q4HRRT # Atrial fibrillation, rate-controlled, on anticoagulation Denies any chest pain but endorses occasional palpitations On admission EKG shows atrial fibrillation with RVR in 110s He takes Xarelto 20 mg at home Given Cardizem 120 mg IV 5 mg p.o. in the ED Dx: -01/07 repeat echo ordered, showed ___ Rx: -PO metoprolol succinate XL 25 mg qD -PO Xarelto 20 mg qD -Consulted Cardiology (Dr. Anaya) for patient's new-onset atrial fibrillation w/ RVR, appreciate recommendations # Microcytic hypochromic anemia Hemoglobin 7, hematocrit 24.0, MCV 76, MCH 22. Type and screen completed On 01/08, patient's Hgb improved only from 7.2->7.6 despite pRBC transfusion x 2 which prompted anemia work-up (however, repeat H&H showed hemoglobin Dx: -01/08 iron panel, ferritin, reticulocyte count, LDH, B12, folate ordered # Parkinsonism Bilateral resting tremors Rx: ?Continue his home medication levodopa carbidopa. ?Aspiration precautions -Head of bed elevation 30 degrees # Leukopenia His WBC 3.6. His WBC is hanging around 3.6 since 2019. ?Continue to monitor #Hypertension Admission BP 134/89 Currently 145/79 Rx: -PO losartan 50 mg qD Code status: Full DVT prophylaxis: SCD Diet: Dysphagia 3 - Advanced Padilla: Present Disposition: Tele Discussed this case with my senior Dr. Barton and my attending Dr. Rebecca Bangura DO (PGY-1) Attending Provider Attestation/Addendum I have seen and examined the patient. I was physically present for the [place] portions of the services provided including history, physical exam, diagnosis, treatment plans and orders. I agree with assessment and plan of care as documented by residents. Even though this this note was carefully revised there may still be minor errors in doughnut icer due to voice recognition software. Tram Fernandez MD
--- NOTE | 2025-01-08 12:29 | PC.SS ---
Update: On IV Diuresis. Patient will discharge home when medically cleared.
[2025-01-08 13:06] LABS: Immature Reticulocyte Fraction 34.6 % (2.3-13.4); Reticulocyte % (Auto) 2.1 % (0.5-1.5); Reticulocyte Absolute Auto 75.8 Biln/L (25.0-75.0); Reticulocyte Hgb Content 22.0 pg (28.0-35.0)
[2025-01-08 13:27] LABS: LDH (Lactate Dehydrogenase) 222 U/L (120-246)
[2025-01-08 13:30] LABS: Folate 18.22 ng/mL (>5.38); Vitamin B12 760 pg/mL (211-911)
[2025-01-08 13:31] LABS: Ferritin 31 ng/mL (10.5-307.3); Iron 21 mcg/dL (65-175); Percent Iron Saturation 5 % (20-55); Total Iron Binding Capacity 362 mcg/dL (250-425); Unsaturated Iron Binding 341 (225-295)
[2025-01-08] MEDS: METOPROLOL SUCCINATE XL 25 MG TABCR PO (14:34)
[2025-01-08 16:38] LABS: Hematocrit 30.2 % (41.0-53.0); Hemoglobin 9.2 g/dL (13.5-16.0)
[2025-01-08] MEDS: RIVAROXABAN 10 MG TABLET 20 MG PO (17:10)
--- NOTE | 2025-01-08 18:45 | XR_ITS ---
EXAMINATION: AP chest single view TECHNIQUE: AP portable semiupright chest single view Date and time: January 08, 2025, 0752 hours, comparison January 07, 2025 INDICATIONS: Hypoxia today. FINDINGS: Mild CHF Mild enlargement cardiac contour prominent vascular congestion and perihilar edema Consider superimposed pneumonia diffusely in the right lung and left base Prominent osteopenia IMPRESSION: Mild CHF Superimposed bilateral pneumonia
[2025-01-08 20:29] LABS: Base Excess 2 (-3-3); HCO3 25 mEq/L (20-26); Inspired Oxygen, FIO2 24 %; O2 Saturation 99 % (91-98); PCO2 33 mmHg (32.0-48.0); PO2 99 mmHg (83-108); pH, Arterial 7.49 (7.35-7.45)
[2025-01-08 20:30] LABS: Allen Test Performed/OK; Puncture Site Left Radial
[2025-01-09] VITALS (12 sets, daily range): BP systolic 118–140; BP diastolic 72–92; PULSE 45–100; RESP 15–21; TEMP 36.4–37; O2SAT 97–100; BMI 21.7
[2025-01-09] MEDS: CARBIDOPA/LEVODOPA CR 50/200 TABCR 1 TAB PO ×3 (05:10→21:41)
[2025-01-09 06:02] LABS: Basophils # (Auto) 0.0 Thou/mm3 (0.0-0.2); Basophils % (Auto) 0 % (0-2.5); Eosinophils # (Auto) 0.0 Thou/mm3 (0.0-0.5); Eosinophils % (Auto) 1 % (0-10); Hematocrit 25.8 % (41.0-53.0); Immature Granulocytes Auto 0.02 Thou/mm3 (0.00-0.00); Lymphocytes # (Auto) 0.2 Thou/mm3 (1.0-4.8); Lymphocytes % (Auto) 4 % (10-50); Mean Corpuscular HGB Conc 30.2 g/dl (31.0-37.0); Mean Corpuscular Hemoglobin 22.9 pg (25.0-35.0); Mean Corpuscular Volume 76 fL (80-100); Monocytes # (Auto) 0.4 Thou/mm3 (0.0-0.8); Monocytes % (Auto) 7 % (0-12); Neutrophils # (Auto) 4.9 Thou/mm3 (1.8-7.7); Neutrophils % (Auto) 88 % (37-80); Nucleated Red Blood Cell # 0.02 Thou/mm3 (0.00-0.00); Nucleated Red Blood Cell % 0 /100 WBC (0); Platelet Count 123 Thou/mm3 (140-440); RDW Standard Deviation 54.4 fL (35.1-43.9); Red Blood Count 3.40 Miln/mm3 (4.50-5.90); White Blood Count 5.5 Thou/mm3 (3.8-10.6)
[2025-01-09 06:03] LABS: Hemoglobin 7.8 g/dL (13.5-16.0)
[2025-01-09 06:22] LABS: Alanine Aminotransferase < 7 U/L (10-49); Albumin, Serum 3.9 gm/dL (3.4-4.8); Albumin/Globulin Ratio 2.0 (1.2-2.2); Alkaline Phosphatase 65 U/L (46-116); Anion Gap 8 (7-16); Aspartate Amino Transferase 19 U/L (0-34); BUN/Creatinine Ratio 28 Ratio (12-20); Bilirubin,Total 1.6 mg/dL (0.3-1.2); Blood Urea Nitrogen 28 mg/dL (9-23); Calcium 9.3 mg/dL (8.3-10.6); Calcium (Corrected) 9.4 mg/dL (8.5-10.1); Carbon Dioxide 26.0 mMol/L (20.0-31.0); Chloride 107 mMol/L (98-107); Creatinine (Component) 1.0 mg/dL (0.6-1.3); Estimated Creatinine Clearance 61.2 mL/min (>60); Globulin 2.0 gm/dL (2.3-3.5); Glucose 89 mg/dL (74-106); Magnesium 2.1 mg/dL (1.6-2.6); Osmolality,Calculated 285 (275-295); Phosphorous 3.5 mg/dL (2.4-5.1); Potassium 3.8 mMol/L (3.4-5.1); Sodium 141 mMol/L (136-145); Total Protein 5.9 gm/dL (5.7-8.2); eGFR > 60 See Note
[2025-01-09] MEDS: ALBUTEROL/IPRATROPIUM (Duoneb) RT SOL 3 ML NEBU INH ×3 (07:11→23:30)
[2025-01-09 08:31] LABS: B-Type Natriuretic Peptide 603 pg/mL (0-100)
[2025-01-09] MEDS: FUROSEMIDE INJ 10 MG/ML 4ML VIAL 40 MG IVP (09:46)
[2025-01-09] MEDS: METOPROLOL SUCCINATE XL 25 MG TABCR PO (09:46)
[2025-01-09] MEDS: LOSARTAN POTASSIUM 25 MG TABLET 50 MG PO (09:47)
--- NOTE | 2025-01-09 12:07 | ESPR_ITS ---
Documentation for date of: 01/09/25 Subjective Subjective Interval history: NO overnight events. Paitnet is alert and oriented to selft but does improve self/place but not date. Paitnet carry out a conversation in luxembourgish but does wax and wane, depending on time of day. Echo pending. Iron given. Pending PT, as patient appears to be from home and is mostly bed bound. PT added. Exam Vital Signs Temp Pulse Resp BP Pulse Ox O2 Del Method O2 Flow Rate 97.6 F 70 18 140/84 H 98 Nasal Cannula 1.5 01/09/25 04:00 01/09/25 09:47 01/09/25 07:11 01/09/25 09:47 01/09/25 07:11 01/09/25 04:00 01/09/25 07:11 Narrative Exam General Appearance: Alert & Oriented X3, thin male who is lying in bed in no acute distress HEENT: Skull symmetrical and atraumatic. Conjunctivae pale pink and moist. Pupils equal, round, reactive to light and accommodation (PERRL). External ear without lesion or discharge. Straight, nares patient, mucosa pink, no discharge. No thyroid nodule appreciated. No cervical lymphadenopathy. Cardio: Normal Rate and Rhythm with S1 and S2 heart sounds. No murmurs or extra heart sounds auscultated. No bruits on carotid auscultation. No peripheral edema or cyanosis. Lungs: Symmetric with good expansion. Chest and back non-tender. Breath sounds vesicular with minimal crackes, no wheezing noted Abdomen: Non-tender, Non-distended, Normal Reactive Bowel Sounds Neuro: Alert, cooperative, oriented to person, place, and time. Speech clear. CN grossly intact. Upper motor strength 5/5 and Lower motor strength 3/5. Sensation intact. Objective Labs 01/10/25 07:25 01/10/25 07:25 Labs: Laboratory Results - last 24 hr 01/08/25 01/08/25 01/08/25 12:30 15:57 20:15 WBC RBC Hgb 9.2 L D Hct 30.2 L MCV MCH MCHC RDW Std Deviation Plt Count Neut % (Auto) Lymph % (Auto) [place] % (Auto) Eos % (Auto) Baso % (Auto) Neut # (Auto) Lymph # (Auto) [place] # (Auto) Eos # (Auto) Baso # (Auto) Immature Gran # (Auto) Absolute Nucleated RBC Immature Gran % Nucleated RBC % Retic Count (auto) 2.1 H Absolute Retic 75.8 H Immature Retic Fraction 34.6 H Retic Hgb Content CHr 22.0 L Puncture Site Left Radial ABG pH 7.49 H ABG pCO2 33 ABG pO2 99 D ABG HCO3 25 ABG O2 Saturation 99 H ABG Base Excess 2 FiO2 24 Sodium Potassium Chloride Carbon Dioxide Anion Gap BUN Creatinine Estim Creat Clear Calc eGFR BUN/Creatinine Ratio Glucose Calculated Osmolality Calcium Corrected Calcium Phosphorus Magnesium Iron 21 L TIBC 362 Iron Saturation 5 L Unsat Iron Binding 341 H Ferritin 31 Total Bilirubin AST ALT Alkaline Phosphatase Lactate Dehydrogenase 222 B-Natriuretic Peptide Total Protein Albumin Globulin Albumin/Globulin Ratio Vitamin B12 760 Folate 18.22 01/09/25 04:50 WBC 5.5 RBC 3.40 L Hgb 7.8 L Hct 25.8 L MCV 76 L MCH 22.9 L MCHC 30.2 L RDW Std Deviation 54.4 H Plt Count 123 L Neut % (Auto) 88 H Lymph % (Auto) 4 L [place] % (Auto) 7 Eos % (Auto) 1 Baso % (Auto) 0 Neut # (Auto) 4.9 Lymph # (Auto) 0.2 L [place] # (Auto) 0.4 Eos # (Auto) 0.0 Baso # (Auto) 0.0 Immature Gran # (Auto) 0.02 H Absolute Nucleated RBC 0.02 H Immature Gran % 0 Nucleated RBC % 0 Retic Count (auto) Absolute Retic Immature Retic Fraction Retic Hgb Content CHr Puncture Site ABG pH ABG pCO2 ABG pO2 ABG HCO3 ABG O2 Saturation ABG Base Excess FiO2 Sodium 141 Potassium 3.8 Chloride 107 Carbon Dioxide 26.0 Anion Gap 8 BUN 28 H Creatinine 1.0 Estim Creat Clear Calc 61.2 eGFR > 60 BUN/Creatinine Ratio 28 H Glucose 89 Calculated Osmolality 285 Calcium 9.3 Corrected Calcium 9.4 Phosphorus 3.5 Magnesium 2.1 Iron TIBC Iron Saturation Unsat Iron Binding Ferritin Total Bilirubin 1.6 H AST 19 ALT < 7 L Alkaline Phosphatase 65 Lactate Dehydrogenase B-Natriuretic Peptide 603 H* Total Protein 5.9 Albumin 3.9 Globulin 2.0 L Albumin/Globulin Ratio 2.0 Vitamin B12 Folate ABG Interpretation ABG results: 01/07/25 01/08/25 07:00 20:15 ABG pH 7.46 H 7.49 H ABG pCO2 28 L 33 ABG pO2 195 H 99 D ABG HCO3 20 25 ABG O2 Saturation 101 H 99 H ABG Base Excess -4 L 2 Quality Measures Quality Measures none Advance care planning discussed with:: patient Assessment & Plan Assessment Current Active Medications: Generic Name Dose Route Start Last Admin Trade Name Freq PRN Reason Stop Dose Admin Acetaminophen 650 mg 01/07/25 09:02 01/07/25 09:11 Acetaminophen 325 Mg Tablet PO 02/06/25 05:38 650 mg Q6H PRN Administration Fever >100.4 or Pain 1-3 Albuterol/Ipratropium 3 ml 01/07/25 05:39 Albuterol/Ipratropium (Duoneb) Rt Licha 3 Ml Nebu INH 02/06/25 05:38 Q2HR PRN SHORTNESS OF BREATH OR WHEEZE Albuterol/Ipratropium 3 ml 01/08/25 23:00 01/09/25 07:11 Albuterol/Ipratropium (Duoneb) Rt Licha 3 Ml Nebu INH 02/07/25 22:59 3 ml Q8HRRT NATHALY Administration Carbidopa/Levodopa 1 tab 01/07/25 06:00 01/09/25 05:10 Carbidopa/Levodopa Cr 50/200 Tabcr PO 02/06/25 05:59 1 tab TID NATHALY Administration Diltiazem HCl 5 mg 01/07/25 03:30 01/07/25 03:37 Diltiazem Inj 5 Mg/Ml Vial 5 Ml IV 02/06/25 03:29 5 mg X1 PRN Administration Tachycardia to a total of 30mg Furosemide 40 mg 01/08/25 09:00 01/09/25 09:46 Furosemide Inj 10 Mg/Ml 4ml Vial IVP 02/07/25 08:59 40 mg QDAY NATHALY Administration Losartan Potassium 50 mg 01/07/25 09:00 01/09/25 09:47 Losartan Potassium 25 Mg Tablet PO 02/06/25 08:59 50 mg QDAY NATHALY Administration Metoprolol Succinate 25 mg 01/08/25 14:15 01/09/25 09:46 Metoprolol Succinate Xl 25 Mg Tabcr PO 02/07/25 14:14 25 mg QDAY NATHALY Administration Potassium Chloride 20 meq 01/10/25 09:00 Potassium Chloride 20 Meq Tabcr PO 01/10/25 09:01 X1 ONE Rivaroxaban 20 mg 01/08/25 17:30 01/08/25 17:10 Rivaroxaban 10 Mg Tablet PO 02/07/25 17:29 20 mg [facility] Administration Plan This is a 84-year-old male with past medical history of parkinsonism on levodopa carbidopa, atrial fibrillation on Xarelto presented to the ED with complaints of shortness of breath since last 5 days. He was admitted for shortness of breath and A-fib with RVR. # Acute hypoxic respiratory failure # Acute decompensated CHF exacerbation, improving Used to take inhalers in the past. Currently not taking any inhalers or any diuretics Shortness of breath since 5 days endorses occasional cough but denies any increased sputum volume, purulence. On examination pedal edema until the shins of bilateral legs. And wheezing present on the both lungs. SpO2 in the 80s on room air but increased to 96% on 6 L of oxygen on nasal cannula Troponin normal, BNP 878, D-dimer normal. ED given 500 cc of NS. ED doc did bedside ultrasound and found IVC collapsible so he gave 500 cc of NS.. Given levofloxacin, Zosyn and methylprednisolone in the ED. Due to elevated BNP, JVD on exam, and CXR, most likely primary contributor to acute respiratory failure is CHF exacerbation CHADS-VASC: 4, HAS-BLED: 2 Rx: -Pending Echo ?Continue IV furosemide 40 mg daily to diurese him -Fluid restriction 1500 mL/day -Duoneb breathing treatments q6HRRT # Atrial fibrillation, rate-controlled, on anticoagulation Denies any chest pain but endorses occasional palpitations On admission EKG shows atrial fibrillation with RVR in 110s He takes Xarelto 20 mg at home Given Cardizem 120 mg IV 5 mg p.o. in the ED Dx: -01/07 repeat echo ordered, showed ___ Rx: -PO metoprolol succinate XL 25 mg qD -PO Xarelto 20 mg qD -Consulted Cardiology (Dr. Anaya) for patient's new-onset atrial fibrillation w/ RVR, appreciate recommendations #Microcytic hypochromic anemia, likely iron deficiency Hemoglobin 7, hematocrit 24.0, MCV 76, MCH 22. Type and screen completed On 01/08, patient's Hgb improved only from 7.2->7.6 despite pRBC transfusion x 2 which prompted anemia work-up (however, repeat H&H showed hemoglobin Dx: -Iron IV x 1 # Parkinsonism Bilateral resting tremors Rx: -Pending PT ?Continue his home medication levodopa carbidopa. ?Aspiration precautions -Head of bed elevation 30 degrees #Hypertension Admission BP 134/89 Currently 145/79 Rx: -PO losartan 50 mg qD #Leukopenia, resolved. Code status: Full DVT prophylaxis: xarelto Diet: Dysphagia 3 - Advanced Padilla: Present Disposition: Tele - The patient's plan was discussed with attending Dr. Rebecca Gray MD PGY2 Internal Medicine Attending Provider Attestation/Addendum I have seen and examined the patient. I was physically present for the betancourt portions of the services provided including history, physical exam, diagnosis, treatment plans and orders. I agree with assessment and plan of care as documented by residents. Even though this this note was carefully revised there may still be minor errors in export coordinator due to voice recognition software. Tram Fernandez MD
[2025-01-09] MEDS: IRON SUCROSE CPLX INJ 20 MG/ML VIAL 5 ML 200 MG IVP (13:02)
--- NOTE | 2025-01-09 14:41 | PC.SS ---
Rounding: IV diuretics, wound care. DC plan: [facility] SS to submit referral
--- NOTE | 2025-01-09 14:52 | PC.SS ---
SNF referral submitted, pending responses. Pt #1 choice is [facility].
[2025-01-09] MEDS: RIVAROXABAN 10 MG TABLET 20 MG PO (17:27)
[2025-01-10] VITALS (10 sets, daily range): BP systolic 111–122; BP diastolic 58–79; PULSE 56–87; RESP 14–21; TEMP 36.2–36.6; O2SAT 96–100; BMI 12.0
--- NOTE | 2025-01-10 04:33 | PC.NURSE ---
dr rome notified of pt still being in afib, HR bradycardic to 39 but did not sustain, pt asymptomatic. No new orders at this time.
[2025-01-10] MEDS: CARBIDOPA/LEVODOPA CR 50/200 TABCR 1 TAB PO ×3 (05:51→21:52)
[2025-01-10] MEDS: ALBUTEROL/IPRATROPIUM (Duoneb) RT SOL 3 ML NEBU INH ×2 (06:14→14:11)
--- NOTE | 2025-01-10 08:12 | PC.SS ---
SS follow up note; SS attempted to contact patient's and patient's son, to offer SNF choice however did not answer, SS left VM with SS contact Number. Patient is pending PT evaluation for SNF auth.
[2025-01-10 08:18] LABS: Basophils # (Auto) 0.0 Thou/mm3 (0.0-0.2); Basophils % (Auto) 0 % (0-2.5); Eosinophils # (Auto) 0.2 Thou/mm3 (0.0-0.5); Eosinophils % (Auto) 5 % (0-10); Hematocrit 25.1 % (41.0-53.0); Immature Granulocytes Auto 0.01 Thou/mm3 (0.00-0.00); Lymphocytes # (Auto) 0.4 Thou/mm3 (1.0-4.8); Lymphocytes % (Auto) 11 % (10-50); Mean Corpuscular HGB Conc 30.7 g/dl (31.0-37.0); Mean Corpuscular Hemoglobin 23.5 pg (25.0-35.0); Mean Corpuscular Volume 77 fL (80-100); Monocytes # (Auto) 0.2 Thou/mm3 (0.0-0.8); Monocytes % (Auto) 7 % (0-12); Neutrophils # (Auto) 2.5 Thou/mm3 (1.8-7.7); Neutrophils % (Auto) 76 % (37-80); Nucleated Red Blood Cell # 0.00 Thou/mm3 (0.00-0.00); Nucleated Red Blood Cell % 0 /100 WBC (0); Platelet Count 115 Thou/mm3 (140-440); RDW Standard Deviation 55.7 fL (35.1-43.9); Red Blood Count 3.28 Miln/mm3 (4.50-5.90); White Blood Count 3.3 Thou/mm3 (3.8-10.6)
[2025-01-10 08:19] LABS: Hemoglobin 7.7 g/dL (13.5-16.0)
[2025-01-10 08:44] LABS: Alanine Aminotransferase < 7 U/L (10-49); Albumin, Serum 3.8 gm/dL (3.4-4.8); Albumin/Globulin Ratio 2.4 (1.2-2.2); Alkaline Phosphatase 61 U/L (46-116); Anion Gap 10 (7-16); Aspartate Amino Transferase 19 U/L (0-34); BUN/Creatinine Ratio 28 Ratio (12-20); Bilirubin,Total 1.5 mg/dL (0.3-1.2); Blood Urea Nitrogen 22 mg/dL (9-23); Calcium 9.0 mg/dL (8.3-10.6); Calcium (Corrected) 9.2 mg/dL (8.5-10.1); Carbon Dioxide 26.4 mMol/L (20.0-31.0); Chloride 104 mMol/L (98-107); Creatinine (Component) 0.8 mg/dL (0.6-1.3); Estimated Creatinine Clearance 74.5 mL/min (>60); Globulin 1.6 gm/dL (2.3-3.5); Glucose 92 mg/dL (74-106); Magnesium 1.9 mg/dL (1.6-2.6); Osmolality,Calculated 282 (275-295); Phosphorous 2.7 mg/dL (2.4-5.1); Potassium 3.2 mMol/L (3.4-5.1); Sodium 140 mMol/L (136-145); Total Protein 5.4 gm/dL (5.7-8.2); eGFR > 60 See Note
[2025-01-10] MEDS: LOSARTAN POTASSIUM 25 MG TABLET 50 MG PO (09:06)
[2025-01-10] MEDS: FUROSEMIDE INJ 10 MG/ML 4ML VIAL 40 MG IVP (09:06)
[2025-01-10] MEDS: METOPROLOL SUCCINATE XL 25 MG TABCR PO (09:07)
--- NOTE | 2025-01-10 11:45 | PC.SS ---
Addendum entered by Kari Espino 01/10/25 14:33: Confirmed [facility] is preferred SNF. Patient's daughter Gabbi provided her contact number [phone]. Patient requested SS confirm if [facility] can accommodate BIPAP. Original Note: Media Marketing Coordinator [facility] inquiring about patient's discharge plan. Media Marketing Coordinator informed Clark patient is requesting to discharge to a SNF.
[2025-01-10 12:02] LABS: Cocci Serology, IgM Negative (Negative)
--- NOTE | 2025-01-10 12:10 | PC.SS ---
Addendum entered by Kari Espino 01/10/25 15:09: Connected with patient's spouse Racheal [phone] to complete PASRR. Patient's spouse requested she be contacted for any questions. She explained patient is unable to speak clearly due to medical condition. PASRR level 1 completed/closed out, no futher needs. PT evaluation pending. Insurance auth. for SNF will be needed. Original Note: Received call from Clark Fitch, she requested update regarding dispostion plan. SS informed her patient to discharge to SNF, [facility] preferred SNF.
--- NOTE | 2025-01-10 13:15 | PD.RESDS ---
Planned Discharge Date 01/10/25 DS: Providers Provider Date of admission: 01/07/25 05:31 Primary care physician: Morris Keyes MD Admitting Provider: Jonathan Arizmendi MD Attending Provider on Admission: Tram Fernandez MD Consults: 01/07/25 08:53 [facility] Referral - Knowledge Deficit Routine Comment: Positive screening for knowledge deficit needs. [facility] Referral - Transportation Routine Comment: Positive screening for transportation needs. 01/07/25 09:44 Referral Wound Care Routine Comment: open wound left lower leg 01/07/25 11:19 Consult to Cardiology Routine Comment: EF 30-35%, c/f heart failure exacerbation Consulting Provider: Bib Anaya 01/09/25 11:27 Referral Physical Therapy Routine Comment: Physician Instructions: Attending Provider on DC: Hiren Bangura MD Discharging Provider: Hiren Bangura MD Hospital Course Hospital Course Hospital course: NO overnight events. Paitnet is alert and oriented to selft but does improve self/place but not date. Paitnet carry out a conversation in latvian but does wax and wane, depending on time of day. Echo pending. Iron given. Pending PT, as patient appears to be from home and is mostly bed bound. PT added. Time Spent with Patient Time attestation: Total time spent providing and/or coordinating discharge services: Exam Vital Signs Temp Pulse Resp BP Pulse Ox O2 Del Method O2 Flow Rate 97.5 F 87 18 114/79 96 Nasal Cannula 1 01/10/25 08:00 01/10/25 09:07 01/10/25 08:00 01/10/25 09:07 01/10/25 08:00 01/10/25 08:00 01/10/25 08:00 Discharge Plan Plan Care Plan Goals: *Wound care to Right lower leg: - Wash hands with soap and water, remove old dressing and cleanse well with normal saline than pat dry with gauze. -Wash hands again. - Apply collegen to wound bed and cover with foam dressing. - Keep dressing clean and dry for 3 days. If active bleeding occurs, apply tight dressing and return to MD or ER. ? Notify primary doctor or return to Emergency Room if any of the following: ? Fever above 100.6? F. ? Increased pain ? Increase swelling ? Red streaks around your wound ? Drainage becomes foul smelling or changes color ? The wound is larger or deeper ? The wound looks dried out or dark ? Bleeding that does not stop with holding pressure Prescriptions/Referrals Prescriptions/Med Rec: No Action carbidopa-levodopa 50-200 mg tablet extended release 1 tab PO TID Rx Instructions: divide evenly over waking hours losartan 50 mg tablet 50 mg PO QDAY bumetanide 1 mg tablet 1 mg PO BID furosemide [Lasix] 20 mg tablet 20 mg PO BID Xarelto 20 mg tablet 20 mg PO QDAY Rx Instructions: must administer with evening meal Referrals: Morris Keyes MD [Primary Care Provider, Family Practice] Patient/Caregiver Discharge Instructions Print Language: Cypriot
--- NOTE | 2025-01-10 16:22 | ESPR_ITS ---
Documentation for date of: 01/10/25 No overnight events. Patient is pending SNF placement Senior Resident Attestation: I have discussed the case with supervising physician and corporate strategy intern physician involved in the care of patient. I personally saw and examined patient and discussed the assessment and plan with the entire medical team, including attending. I agree with assessment and plan as documented below. - The patient's plan was discussed with attending Dr. Rebecca Gray MD PGY2 Internal Medicine Subjective Subjective Interval history: No overnight events. Patient was examined at bedside; they appear A&Ox3 and in NAD. Vitals/labs today significant for HR 58, WBC 5.5->3.3, Hgb 7.8->7.7, plt# 123->115, potassium 3.8->3.2, BUN 28->22, creatinine 1.0->0.8, TBili 1.6->1.5. Cocci IgM returned negative. 01/07 BCx showed [id number]. 01/07 repeat echocardiogram showed grade II diastolic function with EF 55-60%, severe pulmonary HTN (PASP 54 mmHg), moderate aortic valve sclerosis, severe mitral valve regurgitation, and severely enlarged left atrium and right atrium. Physical exam remains unchanged from days prior. PT has evaluated the patient and recommends discharge to acute rehab center. Exam Vital Signs Temp Pulse Resp BP Pulse Ox O2 Del Method O2 Flow Rate 97.2 F 64 16 111/64 99 Nasal Cannula 1 01/10/25 12:00 01/10/25 14:11 01/10/25 14:11 01/10/25 12:00 01/10/25 14:11 01/10/25 12:00 01/10/25 12:00 Narrative Exam General Appearance: Alert & Oriented X3, thin male who is lying in bed in no acute distress HEENT: Skull symmetrical and atraumatic. Conjunctivae pale pink and moist. Pupils equal, round, reactive to light and accommodation (PERRL). External ear without lesion or discharge. Straight, nares patient, mucosa pink, no discharge. No thyroid nodule appreciated. No cervical lymphadenopathy. Cardio: Normal Rate and Rhythm with S1 and S2 heart sounds. No murmurs or extra heart sounds auscultated. No bruits on carotid auscultation. No peripheral edema or cyanosis. Lungs: Symmetric with good expansion. Chest and back non-tender. Breath sounds vesicular with minimal crackes, no wheezing noted Abdomen: Non-tender, Non-distended, Normal Reactive Bowel Sounds Neuro: Alert, cooperative, oriented to person, place, and time. Speech clear. CN grossly intact. Upper motor strength 5/5 and Lower motor strength 3/5. Sensation intact. Objective Labs 01/11/25 05:58 01/11/25 05:58 Labs: Laboratory Results - last 24 hr 01/10/25 07:25 WBC 3.3 L RBC 3.28 L Hgb 7.7 L Hct 25.1 L MCV 77 L MCH 23.5 L MCHC 30.7 L RDW Std Deviation 55.7 H Plt Count 115 L Neut % (Auto) 76 Lymph % (Auto) 11 [place] % (Auto) 7 Eos % (Auto) 5 Baso % (Auto) 0 Neut # (Auto) 2.5 Lymph # (Auto) 0.4 L [place] # (Auto) 0.2 Eos # (Auto) 0.2 Baso # (Auto) 0.0 Immature Gran # (Auto) 0.01 H Absolute Nucleated RBC 0.00 Immature Gran % 0 Nucleated RBC % 0 Sodium 140 Potassium 3.2 L D Chloride 104 Carbon Dioxide 26.4 Anion Gap 10 BUN 22 Creatinine 0.8 Estim Creat Clear Calc 74.5 eGFR > 60 BUN/Creatinine Ratio 28 H Glucose 92 Calculated Osmolality 282 Calcium 9.0 Corrected Calcium 9.2 Phosphorus 2.7 Magnesium 1.9 Total Bilirubin 1.5 H AST 19 ALT < 7 L Alkaline Phosphatase 61 Total Protein 5.4 L Albumin 3.8 Globulin 1.6 L Albumin/Globulin Ratio 2.4 H Coccidioides IgM Ab Negative ABG Interpretation ABG results: 01/07/25 01/08/25 07:00 20:15 ABG pH 7.46 H 7.49 H ABG pCO2 28 L 33 ABG pO2 195 H 99 D ABG HCO3 20 25 ABG O2 Saturation 101 H 99 H ABG Base Excess -4 L 2 Quality Measures Quality Measures none Advance care planning discussed with:: patient Assessment & Plan Assessment Current Active Medications: Generic Name Dose Route Start Last Admin Trade Name Freq PRN Reason Stop Dose Admin Acetaminophen 650 mg 01/07/25 09:02 01/07/25 09:11 Acetaminophen 325 Mg Tablet PO 02/06/25 05:38 650 mg Q6H PRN Administration Fever >100.4 or Pain 1-3 Albuterol/Ipratropium 3 ml 01/07/25 05:39 Albuterol/Ipratropium (Duoneb) Rt Licha 3 Ml Nebu INH 02/06/25 05:38 Q2HR PRN SHORTNESS OF BREATH OR WHEEZE Albuterol/Ipratropium 3 ml 01/08/25 23:00 01/10/25 14:11 Albuterol/Ipratropium (Duoneb) Rt Licha 3 Ml Nebu INH 02/07/25 22:59 3 ml Q8HRRT NATHALY Administration Carbidopa/Levodopa 1 tab 01/07/25 06:00 01/10/25 13:25 Carbidopa/Levodopa Cr 50/200 Tabcr PO 02/06/25 05:59 1 tab TID NATHALY Administration Diltiazem HCl 5 mg 01/07/25 03:30 01/07/25 03:37 Diltiazem Inj 5 Mg/Ml Vial 5 Ml IV 02/06/25 03:29 5 mg X1 PRN Administration Tachycardia to a total of 30mg Furosemide 40 mg 01/08/25 09:00 01/10/25 09:06 Furosemide Inj 10 Mg/Ml 4ml Vial IVP 02/07/25 08:59 40 mg QDAY NATHALY Administration Losartan Potassium 50 mg 01/07/25 09:00 01/10/25 09:06 Losartan Potassium 25 Mg Tablet PO 02/06/25 08:59 50 mg QDAY NATHALY Administration Metoprolol Succinate 25 mg 01/08/25 14:15 01/10/25 09:07 Metoprolol Succinate Xl 25 Mg Tabcr PO 02/07/25 14:14 25 mg QDAY NATHALY Administration Rivaroxaban 20 mg 01/08/25 17:30 01/09/25 17:27 Rivaroxaban 10 Mg Tablet PO 02/07/25 17:29 20 mg WSUPPER NATHALY Administration Plan This is a 84-year-old male with past medical history of parkinsonism on levodopa carbidopa, atrial fibrillation on Xarelto presented to the ED with complaints of shortness of breath since last 5 days. He was admitted for shortness of breath and A-fib with RVR. # Acute hypoxic respiratory failure # Acute decompensated CHF exacerbation, improving Used to take inhalers in the past. Currently not taking any inhalers or any diuretics Shortness of breath since 5 days endorses occasional cough but denies any increased sputum volume, purulence. On examination pedal edema until the shins of bilateral legs. And wheezing present on the both lungs. SpO2 in the 80s on room air but increased to 96% on 6 L of oxygen on nasal cannula Troponin normal, BNP 878, D-dimer normal. ED given 500 cc of NS. ED doc did bedside ultrasound and found IVC collapsible so he gave 500 cc of NS.. Given levofloxacin, Zosyn and methylprednisolone in the ED. Due to elevated BNP, JVD on exam, and CXR, most likely primary contributor to acute respiratory failure is CHF exacerbation CHADS-VASC: 4, HAS-BLED: 2 Dx: -01/07 repeat echocardiogram showed grade II diastolic function with EF 55-60%, severe pulmonary HTN (PASP 54 mmHg), moderate aortic valve sclerosis, severe mitral valve regurgitation, and severely enlarged left atrium and right atrium. Rx: ?Continue IV furosemide 40 mg daily to diurese him -Fluid restriction 1500 mL/day -Duoneb breathing treatments q6HRRT # Atrial fibrillation, rate-controlled, on anticoagulation Denies any chest pain but endorses occasional palpitations On admission EKG shows atrial fibrillation with RVR in 110s He takes Xarelto 20 mg at home Given Cardizem 120 mg IV 5 mg p.o. in the ED Dx: -01/07 repeat echo findings as above Rx: -PO metoprolol succinate XL 25 mg qD -PO Xarelto 20 mg qD -Consulted Cardiology (Dr. Anaya) for patient's new-onset atrial fibrillation w/ RVR, appreciate recommendations #Microcytic hypochromic anemia, likely iron deficiency Hemoglobin 7, hematocrit 24.0, MCV 76, MCH 22. Type and screen completed On 01/08, patient's Hgb improved only from 7.2->7.6 despite pRBC transfusion x 2 which prompted anemia work-up (however, repeat H&H showed hemoglobin Dx: -Iron IV x 1 # Parkinsonism Bilateral resting tremors PT has evaluated patient on 01/10 and recommends SNF placement Rx: ?Continue his home medication levodopa carbidopa. ?Aspiration precautions -Head of bed elevation 30 degrees #Hypertension Admission BP 134/89 Currently 145/79 Rx: -PO losartan 50 mg qD Code status: Full DVT prophylaxis: Xarelto Diet: Dysphagia 3 - Advanced Padilla: Present Disposition: Tele, anticipate discharge to SNF within next 24 hours pending placement The patient's plan was discussed with my attending Dr. Fernandez and senior resident Dr. Gray. Hiren Bangura, DO PGY-1 Internal Medicine Attending Provider Attestation/Addendum I have seen and examined the patient. I was physically present for the betancourt portions of the services provided including history, physical exam, diagnosis, treatment plans and orders. I agree with assessment and plan of care as documented by residents. Patient seen and examined at bedside this morning. Appears comfortable and denies any new complaints. Continues to be on IV diuresis, vital signs are stable and saturating well on room air. Lab results are stable including hemoglobin. Patient underwent physical therapy evaluation, recommended SNF placement. Awaiting placement. Even though this this note was carefully revised there may still be minor errors in software quality assurance engineer due to voice recognition software. Tram Fernandez MD
--- NOTE | 2025-01-10 16:30 | PD.IMPROG ---
Documentation for date of: 01/10/25 Subjective Subjective Interval history: pt no chest pain reported Exam Vital Signs Temp Pulse Resp BP Pulse Ox O2 Del Method O2 Flow Rate 97.2 F 64 16 111/64 99 Nasal Cannula 1 01/10/25 12:00 01/10/25 14:11 01/10/25 14:11 01/10/25 12:00 01/10/25 14:11 01/10/25 12:00 01/10/25 12:00 Routine HEENT Exam Head: Present normocephalic and atraumatic Eye: Present EOMI and PERRL ENT: Present mucous membranes moist Routine Neck Exam Neck: Present supple and trachea midline Routine Respiratory Exam Respiratory: Present chest non-tender, lungs clear, normal breath sounds and no resp distress Routine Cardiovascular Exam Cardiovascular: Present RRR Routine Abdominal Exam Abdominal: Present soft and normoactive bowel sounds Routine Extremities Exam Extremities: Present full ROM Routine Skin Exam Skin: Present intact, dry and warm Routine Neurological Exam Neurological: Present alert, oriented X3 and CN II-XII intact Routine Psychiatric Exam Psychiatric: Present normal affect and normal thought process Objective Labs 01/10/25 07:25 01/10/25 07:25 Labs: Laboratory Results - last 24 hr 01/10/25 07:25 WBC 3.3 L RBC 3.28 L Hgb 7.7 L Hct 25.1 L MCV 77 L MCH 23.5 L MCHC 30.7 L RDW Std Deviation 55.7 H Plt Count 115 L Neut % (Auto) 76 Lymph % (Auto) 11 [place] % (Auto) 7 Eos % (Auto) 5 Baso % (Auto) 0 Neut # (Auto) 2.5 Lymph # (Auto) 0.4 L [place] # (Auto) 0.2 Eos # (Auto) 0.2 Baso # (Auto) 0.0 Immature Gran # (Auto) 0.01 H Absolute Nucleated RBC 0.00 Immature Gran % 0 Nucleated RBC % 0 Sodium 140 Potassium 3.2 L D Chloride 104 Carbon Dioxide 26.4 Anion Gap 10 BUN 22 Creatinine 0.8 Estim Creat Clear Calc 74.5 eGFR > 60 BUN/Creatinine Ratio 28 H Glucose 92 Calculated Osmolality 282 Calcium 9.0 Corrected Calcium 9.2 Phosphorus 2.7 Magnesium 1.9 Total Bilirubin 1.5 H AST 19 ALT < 7 L Alkaline Phosphatase 61 Total Protein 5.4 L Albumin 3.8 Globulin 1.6 L Albumin/Globulin Ratio 2.4 H Coccidioides IgM Ab Negative ABG Interpretation ABG results: 01/07/25 01/08/25 07:00 20:15 ABG pH 7.46 H 7.49 H ABG pCO2 28 L 33 ABG pO2 195 H 99 D ABG HCO3 20 25 ABG O2 Saturation 101 H 99 H ABG Base Excess -4 L 2 Assessment & Plan A&P Narrative afib rate controlled continue anticoagulation Time Spent With Patient Time: Total time spent is greater than 50% in coordination of care (as documented) at patient's floor/unit and/or counseling patient:
[2025-01-10] MEDS: RIVAROXABAN 10 MG TABLET 20 MG PO (17:35)
[2025-01-11] VITALS (12 sets, daily range): BP systolic 111–122; BP diastolic 66–82; PULSE 59–86; RESP 16–95; TEMP 36.1–36.4; O2SAT 94–99; BMI 22.2
[2025-01-11] MEDS: ALBUTEROL/IPRATROPIUM (Duoneb) RT SOL 3 ML NEBU INH ×4 (00:22→23:34)
[2025-01-11] MEDS: CARBIDOPA/LEVODOPA CR 50/200 TABCR 1 TAB PO ×3 (05:16→22:25)
[2025-01-11 06:19] LABS: Basophils # (Auto) 0.0 Thou/mm3 (0.0-0.2); Basophils % (Auto) 0 % (0-2.5); Eosinophils # (Auto) 0.2 Thou/mm3 (0.0-0.5); Eosinophils % (Auto) 6 % (0-10); Hematocrit 27.1 % (41.0-53.0); Immature Granulocytes Auto 0.01 Thou/mm3 (0.00-0.00); Lymphocytes # (Auto) 0.4 Thou/mm3 (1.0-4.8); Lymphocytes % (Auto) 12 % (10-50); Mean Corpuscular HGB Conc 29.2 g/dl (31.0-37.0); Mean Corpuscular Hemoglobin 22.8 pg (25.0-35.0); Mean Corpuscular Volume 78 fL (80-100); Monocytes # (Auto) 0.3 Thou/mm3 (0.0-0.8); Monocytes % (Auto) 10 % (0-12); Neutrophils # (Auto) 2.3 Thou/mm3 (1.8-7.7); Neutrophils % (Auto) 71 % (37-80); Nucleated Red Blood Cell # 0.00 Thou/mm3 (0.00-0.00); Nucleated Red Blood Cell % 0 /100 WBC (0); Platelet Count 161 Thou/mm3 (140-440); RDW Standard Deviation 57.7 fL (35.1-43.9); Red Blood Count 3.46 Miln/mm3 (4.50-5.90); White Blood Count 3.2 Thou/mm3 (3.8-10.6)
[2025-01-11 06:23] LABS: Hemoglobin 7.9 g/dL (13.5-16.0)
[2025-01-11 07:02] LABS: Alanine Aminotransferase < 7 U/L (10-49); Albumin, Serum 3.8 gm/dL (3.4-4.8); Albumin/Globulin Ratio 2.4 (1.2-2.2); Alkaline Phosphatase 63 U/L (46-116); Anion Gap 9 (7-16); Aspartate Amino Transferase 20 U/L (0-34); BUN/Creatinine Ratio 24 Ratio (12-20); Bilirubin,Total 1.5 mg/dL (0.3-1.2); Blood Urea Nitrogen 19 mg/dL (9-23); Calcium 9.0 mg/dL (8.3-10.6); Calcium (Corrected) 9.2 mg/dL (8.5-10.1); Carbon Dioxide 27.7 mMol/L (20.0-31.0); Chloride 104 mMol/L (98-107); Creatinine (Component) 0.8 mg/dL (0.6-1.3); Estimated Creatinine Clearance 73.7 mL/min (>60); Globulin 1.6 gm/dL (2.3-3.5); Glucose 94 mg/dL (74-106); Magnesium 2.0 mg/dL (1.6-2.6); Osmolality,Calculated 283 (275-295); Phosphorous 2.9 mg/dL (2.4-5.1); Potassium 3.8 mMol/L (3.4-5.1); Sodium 141 mMol/L (136-145); Total Protein 5.4 gm/dL (5.7-8.2); eGFR > 60 See Note
--- NOTE | 2025-01-11 08:40 | PC.NURSE ---
notified Dr. Echeverria of patients BP its ok to give patients morning medication.
[2025-01-11] MEDS: METOPROLOL SUCCINATE XL 25 MG TABCR PO (08:41)
[2025-01-11] MEDS: LOSARTAN POTASSIUM 25 MG TABLET 50 MG PO (08:41)
[2025-01-11] MEDS: FUROSEMIDE INJ 10 MG/ML 4ML VIAL 40 MG IVP (08:42)
--- NOTE | 2025-01-11 09:36 | PD.RESPRO ---
Documentation for date of: 01/11/25 Exam Vital Signs Temp Pulse Resp BP Pulse Ox O2 Del Method O2 Flow Rate 97.0 F 81 18 112/71 95 Room Air 1 01/11/25 08:00 01/11/25 08:42 01/11/25 08:00 01/11/25 08:42 01/11/25 08:00 01/11/25 08:00 01/10/25 16:00 Objective Labs 01/11/25 05:58 01/11/25 05:58 Labs: Laboratory Results - last 24 hr 01/10/25 01/11/25 07:25 05:58 WBC 3.2 L RBC 3.46 L Hgb 7.9 L Hct 27.1 L MCV 78 L MCH 22.8 L MCHC 29.2 L RDW Std Deviation 57.7 H Plt Count 161 D Neut % (Auto) 71 Lymph % (Auto) 12 [place] % (Auto) 10 Eos % (Auto) 6 Baso % (Auto) 0 Neut # (Auto) 2.3 Lymph # (Auto) 0.4 L [place] # (Auto) 0.3 Eos # (Auto) 0.2 Baso # (Auto) 0.0 Immature Gran # (Auto) 0.01 H Absolute Nucleated RBC 0.00 Immature Gran % 0 Nucleated RBC % 0 Sodium 141 Potassium 3.8 D Chloride 104 Carbon Dioxide 27.7 Anion Gap 9 BUN 19 Creatinine 0.8 Estim Creat Clear Calc 73.7 eGFR > 60 BUN/Creatinine Ratio 24 H Glucose 94 Calculated Osmolality 283 Calcium 9.0 Corrected Calcium 9.2 Phosphorus 2.9 Magnesium 2.0 Total Bilirubin 1.5 H AST 20 ALT < 7 L Alkaline Phosphatase 63 Total Protein 5.4 L Albumin 3.8 Globulin 1.6 L Albumin/Globulin Ratio 2.4 H Coccidioides IgM Ab Negative ABG Interpretation ABG results: 01/07/25 01/08/25 07:00 20:15 ABG pH 7.46 H 7.49 H ABG pCO2 28 L 33 ABG pO2 195 H 99 D ABG HCO3 20 25 ABG O2 Saturation 101 H 99 H ABG Base Excess -4 L 2 Quality Measures Quality Measures none Assessment & Plan Assessment Current Active Medications: Generic Name Dose Route Start Last Admin Trade Name Freq PRN Reason Stop Dose Admin Acetaminophen 650 mg 01/07/25 09:02 01/07/25 09:11 Acetaminophen 325 Mg Tablet PO 11/27/25 05:38 650 mg Q6H PRN Administration Fever >100.4 or Pain 1-3 Albuterol/Ipratropium 3 ml 01/07/25 05:39 Albuterol/Ipratropium (Duoneb) Rt Licha 3 Ml Nebu INH 02/06/25 05:38 Q2HR PRN SHORTNESS OF BREATH OR WHEEZE Albuterol/Ipratropium 3 ml 01/08/25 23:00 01/11/25 06:28 Albuterol/Ipratropium (Duoneb) Rt Licha 3 Ml Nebu INH 02/07/25 22:59 3 ml Q8HRRT NATHALY Administration Carbidopa/Levodopa 1 tab 01/07/25 06:00 01/11/25 05:16 Carbidopa/Levodopa Cr 50/200 Tabcr PO 02/06/25 05:59 1 tab TID NATHALY Administration Diltiazem HCl 5 mg 01/07/25 03:30 01/07/25 03:37 Diltiazem Inj 5 Mg/Ml Vial 5 Ml IV 02/06/25 03:29 5 mg X1 PRN Administration Tachycardia to a total of 30mg Furosemide 40 mg 01/08/25 09:00 01/11/25 08:42 Furosemide Inj 10 Mg/Ml 4ml Vial IVP 02/07/25 08:59 40 mg QDAY NATHALY Administration Losartan Potassium 50 mg 01/07/25 09:00 01/11/25 08:41 Losartan Potassium 25 Mg Tablet PO 02/06/25 08:59 50 mg QDAY NATHALY Administration Metoprolol Succinate 25 mg 01/08/25 14:15 01/11/25 08:41 Metoprolol Succinate Xl 25 Mg Tabcr PO 02/07/25 14:14 25 mg QDAY NATHALY Administration Rivaroxaban 20 mg 01/08/25 17:30 01/10/25 17:35 Rivaroxaban 10 Mg Tablet PO 02/07/25 17:29 20 mg WSUPPER NATHALY Administration
--- NOTE | 2025-01-11 09:38 | ESDS_ITS ---
<Statement entered by Laya Echeverria MD - 01/12/25 12:00> Patient was seen and examined by me personally. I have reviewed the below documentation by the team resident and agree with its findings with any exceptions as below. Discharge plan was discussed with the attending, Dr. Fernandez. Laya Echeverria, PGY-3 Planned Discharge Date 01/11/25 DS: Providers Provider Date of admission: 01/07/25 05:31 Primary care physician: Morris Keyes MD Admitting Provider: Jonathan Arizmendi MD Attending Provider on Admission: Tram Fernandez MD Consults: 01/07/25 08:53 [facility] Referral - Knowledge Deficit Routine Comment: Positive screening for knowledge deficit needs. [facility] Referral - Transportation Routine Comment: Positive screening for transportation needs. 01/07/25 09:44 Referral Wound Care Routine Comment: open wound left lower leg 01/07/25 11:19 Consult to Cardiology Routine Comment: EF 30-35%, c/f heart failure exacerbation Consulting Provider: Bib Anaya 01/09/25 11:27 Referral Physical Therapy Routine Comment: Physician Instructions: Attending Provider on DC: Tram Fernandez MD Discharging Provider: Hiren Bangura DO DS: Diagnosis Problem List Completed Was Problem List Reviewed/Reconciled?: Yes Hospital Course Hospital Course Hospital course: Summary: Patient is an 84-year-old male with past medical history of Parkinson disease on levodopa carbidopa and atrial fibrillation on Xarelto who presented to the ED on 01/07/25 with complaints of shortness of breath ongoing for 5 days. He was admitted for shortness of breath and A-fib with RVR. Hospital: During patient's hospital course, he was treated with IV Lasix, fluid restriction, and Duoneb breathing treatments for his acute hypoxic respiratory failure 2/2 CHF exacerbation (IV azithromycin and IV Solu-Medrol were also initially started due to concern for COPD exacerbation but this was later deemed less likely). Due to patient's atrial fibrillation w/ RVR, he was also started on PO metoprolol succinate XL and PO Xarelto. A 01/07 repeat echocardiogram was ordered and showed grade II diastolic function wtih EF 55-60%, severe pulmonary HTN (PASP 54 mmHg), moderate aortic valve sclerosis, severe mitral valve regurgitation, and severely enlarged left atrium and right atrium. By 01/11, patient was deemed clinically stabilized and discharged back to SNF. Patient is safe to discharge. Further discharge instructions below. Discharge Recommendations: - Follow up with PCP within 1 week of discharge - Stop Bumex - Take Lasix 40 mg once daily for CHF - Take metoprolol succinate 25 mg qday for afib - Continue rest of medications as previously prescribed, including the below - Continue carbidopa-levodopa 50-200 mg three times daily for Parkinson's - Continue losartan 50 mg qday for hypertension - Continue Xarelto 20 mg qday for afib - Return to the ED or call EMS if symptoms return and/or worsen CHF Instructions: - Please ensure you have a weighing scale, 2 gram sodium restriction, 2L fluid restriction - Please note your weight on the discharge paperwork prior to leaving - Every morning after you wake up and urinate, please weigh yourself, and document the date and the weight. - If your weight increases by 2 pounds in 1 day or by 5 pounds in a week, call your Auto Garage Attendant. - If you notice shortness of breath, having to use more pillows to prop your head up when you sleep, waking up short of breath, clothes fitting tighter, swelling your legs, decreased urination, please call. If any symptoms are severe, go to the Emergency Department. - Avoid using medications called NSAIDs (also known as nonsteroidal anti- inflammatory drugs), such as ibuprofen, Motrin, Aleve, Advil, naproxen. - Avoid using canned vegetables, canned soups, frozen dinners as these tend to have a lot of salt. Wound Care to Right Lower Le. Wash hands with soap and water, remove old dressing and cleanse well with normal saline than pat dry with gauze. 2. Wash hands again. 3. Apply collegen to wound bed and cover with foam dressing. 4. Keep dressing clean and dry for 3 days. If active bleeding occurs, apply tight dressing and return to MD or ER. Notify primary doctor or return to Emergency Room if any of the following: ? Fever above 100.6? F. ? Increased pain ? Increase swelling ? Red streaks around your wound ? Drainage becomes foul smelling or changes color ? The wound is larger or deeper ? The wound looks dried out or dark ? Bleeding that does not stop with holding pressure #Acute hypoxic respiratory failure #Acute decompensated CHF exacerbation, improving #Atrial fibrillation with rapid ventricular response, now rate-controlled and on anticoagulation #Microcytic hypochromic anemia, likely iron deficiency anemia #Hx of Parkinson disease #Leukopenia, resolved #Hypertension Status at Discharge Cognitive/Behavioral Status at Discharge: stable Functional Status at Discharge: bedbound Overall Status at Discharge: patient is back to baseline Patient's care plan was discussed with my attending, Dr. Fernandez, and senior resident, Dr. Echeverria. Hiren Bangura, DO Internal Medicine, PGY-1 Time Spent with Patient Time attestation: Total time spent providing and/or coordinating discharge services: 35 min Time spent: Greater than 30 minutes Exam Vital Signs Temp Pulse Resp BP Pulse Ox O2 Del Method O2 Flow Rate 97.0 F 81 18 112/71 95 Room Air 1 01/11/25 08:00 01/11/25 08:42 01/11/25 08:00 01/11/25 08:42 01/11/25 08:00 01/11/25 08:00 01/10/25 16:00 Narrative Exam General Appearance: Alert & Oriented X3, thin male who is lying in bed in no acute distress HEENT: Skull symmetrical and atraumatic. Conjunctivae pale pink and moist. Pupils equal, round, reactive to light and accommodation (PERRL). External ear without lesion or discharge. Straight, nares patient, mucosa pink, no discharge. No thyroid nodule appreciated. No cervical lymphadenopathy. Cardio: Normal Rate and Rhythm with S1 and S2 heart sounds. No murmurs or extra heart sounds auscultated. No bruits on carotid auscultation. No peripheral edema or cyanosis. Lungs: Symmetric with good expansion. Chest and back non-tender. Breath sounds vesicular with minimal crackes, no wheezing noted Abdomen: Non-tender, Non-distended, Normal Reactive Bowel Sounds Neuro: Alert, cooperative, oriented to person, place, and time. Speech clear. CN grossly intact. Upper motor strength 5/5 and Lower motor strength 3/5. Sensation intact. Discharge Plan Plan Patient Disposition: Xfer Skilled Nsg Fac (SNF) Disposition Comment: [facility] Patient condition on transfer: Stable Care Plan Goals: Discharge Recommendations: - Follow up with PCP within 1 week of discharge - Stop Bumex - Take Lasix 40 mg once daily for CHF - Take metoprolol succinate 25 mg qday for afib - Continue rest of medications as previously prescribed, including the below - Continue carbidopa-levodopa 50-200 mg three times daily for Parkinson's - Continue losartan 50 mg qday for hypertension - Continue Xarelto 20 mg qday for afib - Return to the ED or call EMS if symptoms return and/or worsen CHF Instructions: - Please ensure you have a weighing scale, 2 gram sodium restriction, 2L fluid restriction - Please note your weight on the discharge paperwork prior to leaving - Every morning after you wake up and urinate, please weigh yourself, and document the date and the weight. - If your weight increases by 2 pounds in 1 day or by 5 pounds in a week, call your Auto Garage Attendant. - If you notice shortness of breath, having to use more pillows to prop your head up when you sleep, waking up short of breath, clothes fitting tighter, swelling your legs, decreased urination, please call. If any symptoms are severe, go to the Emergency Department. - Avoid using medications called NSAIDs (also known as nonsteroidal anti- inflammatory drugs), such as ibuprofen, Motrin, Aleve, Advil, naproxen. - Avoid using canned vegetables, canned soups, frozen dinners as these tend to have a lot of salt. Wound Care to Right Lower Le. Wash hands with soap and water, remove old dressing and cleanse well with normal saline than pat dry with gauze. 2. Wash hands again. 3. Apply collegen to wound bed and cover with foam dressing. 4. Keep dressing clean and dry for 3 days. If active bleeding occurs, apply tight dressing and return to MD or ER. Notify primary doctor or return to Emergency Room if any of the following: ? Fever above 100.6? F. ? Increased pain ? Increase swelling ? Red streaks around your wound ? Drainage becomes foul smelling or changes color ? The wound is larger or deeper ? The wound looks dried out or dark ? Bleeding that does not stop with holding pressure Prescriptions/Referrals Prescriptions/Med Rec: New metoprolol succinate 25 mg tablet extended release 24 hr 25 mg PO QDAY 30 Days Qty: 30 0RF Continued carbidopa-levodopa 50-200 mg tablet extended release 1 tab PO TID Rx Instructions: divide evenly over waking hours losartan 50 mg tablet 50 mg PO QDAY Xarelto 20 mg tablet 20 mg PO QDAY Rx Instructions: must administer with evening meal Changed furosemide [Lasix] 20 mg tablet 40 mg PO QDAY 30 Days Qty: 60 0RF Discontinued bumetanide 1 mg tablet 1 mg PO BID Referrals: Morris Keyes MD [Primary Care Provider, Family Practice] Patient/Caregiver Discharge Instructions Education Materials: What Is Heart Failure, Understanding Atrial Fibrillation, ED Atrial Fibrillation, ED Heart Failure, Congestive (CHF) Print Language: Faroese Stand Alone Forms: Angie Award Info., Patient Portal Info Letter Quality Discharge Quality Measures VTE prophylaxis MD Attestestation MD Attestation I have seen and examined the patient. I was physically present for the betancourt portions of the services provided including history, physical exam, diagnosis, treatment plans and orders. I agree with assessment and plan of care as documented by residents. Even though this this note was carefully revised there may still be minor errors in rental agent due to voice recognition software. Tram Fernandez MD
--- NOTE | 2025-01-11 09:46 | XR_ITS ---
Examination: Abdomen sonogram, Limited Date and time of exam: January 11, 2025, 1544 hours INDICATIONS: Elevated bilirubin on laboratory examination today Technique: Real-time smyth scale transabdominal sonographic images of the upper abdomen obtained. Findings: Normal gallbladder Normal common bile duct 0.3 cm Pancreas obscured by bowel gas. Liver 14.5 cm fatty infiltration, small right lobe liver cyst 12 mm Normal hepatopetal portal venous flow Patent IVC Incidental note right pleural fluid mild to moderate IMPRESSION: Normal gallbladder Normal common bile duct Liver normal size fatty infiltration no focal liver lesions.
--- NOTE | 2025-01-11 09:56 | PC.SS ---
SS reached out to Kerri at [facility] to inquire on auth status, per Kerri auth has been obtained. SS updated Dr. Echeverria who stated they will work on DC.
[2025-01-11 10:42] LABS: Bilirubin,Direct 0.7 mg/dL (0.0-0.3)
[2025-01-11 11:51] LABS: Cocci Serology, IgG Negative (Negative)
[2025-01-11] MEDS: ferumoxytoL (NON-ESRD) 510 MG in SODIUM CHLORIDE 0.9% 100 ML 234 MG IV (16:13)
[2025-01-11] MEDS: RIVAROXABAN 10 MG TABLET 20 MG PO (17:27)
[2025-01-12] VITALS (7 sets, daily range): BP systolic 115–123; BP diastolic 74–82; PULSE 60–86; RESP 14–98; TEMP 36.2–36.5; O2SAT 94–100; BMI 21.7
[2025-01-12] MEDS: ALBUTEROL/IPRATROPIUM (Duoneb) RT SOL 3 ML NEBU INH ×2 (06:44→14:29)
[2025-01-12] MEDS: METOPROLOL SUCCINATE XL 25 MG TABCR PO (09:18)
[2025-01-12] MEDS: FUROSEMIDE INJ 10 MG/ML 4ML VIAL 40 MG IVP (09:18)
[2025-01-12] MEDS: LOSARTAN POTASSIUM 25 MG TABLET 50 MG PO (09:18)
--- NOTE | 2025-01-12 10:50 | ESDS_ITS ---
<Statement entered by Preet Byrd MD - 01/12/25 14:45> I have personally seen and examined the patient, agree with residents assessment and plan Patient plan of care was discussed with the attending physician, Dr. Rebecca Byrd, PGY2 Planned Discharge Date 01/12/25 DS: Providers Provider Date of admission: 01/07/25 05:31 Primary care physician: Morris Keyes MD Admitting Provider: Jonathan Arizmendi MD Attending Provider on Admission: Tram Fernandez MD Consults: 01/07/25 08:53 [facility] Referral - Knowledge Deficit Routine Comment: Positive screening for knowledge deficit needs. [facility] Referral - Transportation Routine Comment: Positive screening for transportation needs. 01/07/25 09:44 Referral Wound Care Routine Comment: open wound left lower leg 01/07/25 11:19 Consult to Cardiology Routine Comment: EF 30-35%, c/f heart failure exacerbation Consulting Provider: Bib Anaya 01/09/25 11:27 Referral Physical Therapy Routine Comment: Physician Instructions: Attending Provider on DC: Tram Fernandez MD Discharging Provider: Hiren Bangura DO DS: Diagnosis Problem List Completed Was Problem List Reviewed/Reconciled?: Yes Hospital Course Hospital Course Hospital course: Patient is an 84-year-old male with past medical history of Parkinson disease on levodopa carbidopa and atrial fibrillation on Xarelto who presented to the ED on 01/07/25 with complaints of shortness of breath ongoing for 5 days. He was admitted for shortness of breath and A-fib with RVR. Hospital: During patient's hospital course, he was treated with IV Lasix, fluid restriction, and Duoneb breathing treatments for his acute hypoxic respiratory failure 2/2 CHF exacerbation (IV azithromycin and IV Solu-Medrol were also initially started due to concern for COPD exacerbation but this was later deemed less likely). Due to patient's atrial fibrillation w/ RVR, he was also started on PO metoprolol succinate XL and PO Xarelto. A 01/07 repeat echocardiogram was ordered and showed grade II diastolic function wtih EF 55-60%, severe pulmonary HTN (PASP 54 mmHg), moderate aortic valve sclerosis, severe mitral valve regurgitation, and severely enlarged left atrium and right atrium. By 01/12, patient was deemed clinically stabilized and discharged back to SNF. Patient is safe to discharge. Further discharge instructions below. Discharge Recommendations: - Follow up with PCP within 1 week of discharge - Stop Bumex - Take Lasix 40 mg once daily for CHF - Take metoprolol succinate 25 mg qday for afib - Continue rest of medications as previously prescribed, including the below - Continue carbidopa-levodopa 50-200 mg three times daily for Parkinson's - Continue losartan 50 mg qday for hypertension - Continue Xarelto 20 mg qday for afib - Follow with PCP regarding decreased white count and anemia to R/O myelodysplastic syndrome and also recommended to have liver panel and liver ultrasound within 1 week of discharge - Return to the ED or call EMS if symptoms return and/or worsen CHF Instructions: - Please ensure you have a weighing scale, 2 gram sodium restriction, 2L fluid restriction - Please note your weight on the discharge paperwork prior to leaving - Every morning after you wake up and urinate, please weigh yourself, and document the date and the weight. - If your weight increases by 2 pounds in 1 day or by 5 pounds in a week, call your Timber Repairer. - If you notice shortness of breath, having to use more pillows to prop your head up when you sleep, waking up short of breath, clothes fitting tighter, swelling your legs, decreased urination, please call. If any symptoms are severe, go to the Emergency Department. - Avoid using medications called NSAIDs (also known as nonsteroidal anti- inflammatory drugs), such as ibuprofen, Motrin, Aleve, Advil, naproxen. - Avoid using canned vegetables, canned soups, frozen dinners as these tend to have a lot of salt. Wound Care to Right Lower Le. Wash hands with soap and water, remove old dressing and cleanse well with normal saline than pat dry with gauze. 2. Wash hands again. 3. Apply collegen to wound bed and cover with foam dressing. 4. Keep dressing clean and dry for 3 days. If active bleeding occurs, apply tight dressing and return to MD or ER. Notify primary doctor or return to Emergency Room if any of the following: ? Fever above 100.6? F. ? Increased pain ? Increase swelling ? Red streaks around your wound ? Drainage becomes foul smelling or changes color ? The wound is larger or deeper ? The wound looks dried out or dark ? Bleeding that does not stop with holding pressure #Acute hypoxic respiratory failure #Acute decompensated CHF exacerbation, improving #Atrial fibrillation with rapid ventricular response, now rate-controlled and on anticoagulation #Microcytic hypochromic anemia, likely iron deficiency anemia #Hx of Parkinson disease #Leukopenia, resolved #Hypertension Status at Discharge Cognitive/Behavioral Status at Discharge: stable Functional Status at Discharge: bedbound Overall Status at Discharge: patient is back to baseline Patient's care plan was discussed with my attending, Dr. Fernandez, and senior resident, Dr. Byrd. Hiren Bangura, DO Internal Medicine, PGY-1 Time Spent with Patient Time attestation: Total time spent providing and/or coordinating discharge services: 38 minutes Time spent: Greater than 30 minutes Exam Vital Signs Temp Pulse Resp BP Pulse Ox O2 Del Method O2 Flow Rate 97.1 F 79 21 H 122/74 97 Room Air 1 01/12/25 08:00 01/12/25 09:18 01/12/25 08:00 01/12/25 09:18 01/12/25 08:00 01/12/25 08:00 01/10/25 16:00 Narrative Exam General Appearance: Alert & Oriented X3, thin male who is lying in bed in no acute distress HEENT: Skull symmetrical and atraumatic. Conjunctivae pale pink and moist. Pupils equal, round, reactive to light and accommodation (PERRL). External ear without lesion or discharge. Straight, nares patient, mucosa pink, no discharge. No thyroid nodule appreciated. No cervical lymphadenopathy. Cardio: Normal Rate and Rhythm with S1 and S2 heart sounds. No murmurs or extra heart sounds auscultated. No bruits on carotid auscultation. No peripheral edema or cyanosis. Lungs: Symmetric with good expansion. Chest and back non-tender. Breath sounds vesicular with minimal crackes, no wheezing noted Abdomen: Non-tender, Non-distended, Normal Reactive Bowel Sounds Neuro: Alert, cooperative, oriented to person, place, and time. Speech clear. CN grossly intact. Upper motor strength 5/5 and Lower motor strength 3/5. Sensation intact. Discharge Plan Plan Patient Disposition: Xfer Skilled Nsg Fac (SNF) Disposition Comment: [facility] Patient condition on transfer: Stable Care Plan Goals: Discharge Recommendations: - Follow up with PCP within 1 week of discharge - Stop Bumex - Take Lasix 40 mg once daily for CHF - Take metoprolol succinate 25 mg qday for afib - Continue rest of medications as previously prescribed, including the below - Continue carbidopa-levodopa 50-200 mg three times daily for Parkinson's - Continue losartan 50 mg qday for hypertension - Continue Xarelto 20 mg qday for afib - Follow with PCP regarding decreased white count and anemia to R/O myelodysplastic syndrome and also recommended to have liver panel and liver ultrasound within 1 week of discharge - Return to the ED or call EMS if symptoms return and/or worsen CHF Instructions: - Please ensure you have a weighing scale, 2 gram sodium restriction, 2L fluid restriction - Please note your weight on the discharge paperwork prior to leaving - Every morning after you wake up and urinate, please weigh yourself, and document the date and the weight. - If your weight increases by 2 pounds in 1 day or by 5 pounds in a week, call your Timber Repairer. - If you notice shortness of breath, having to use more pillows to prop your head up when you sleep, waking up short of breath, clothes fitting tighter, swelling your legs, decreased urination, please call. If any symptoms are se delicia, go to the Emergency Department. - Avoid using medications called NSAIDs (also known as nonsteroidal anti- inflammatory drugs), such as ibuprofen, Motrin, Aleve, Advil, naproxen. - Avoid using canned vegetables, canned soups, frozen dinners as these tend to have a lot of salt. Wound Care to Right Lower Le. Wash hands with soap and water, remove old dressing and cleanse well with normal saline than pat dry with gauze. 2. Wash hands again. 3. Apply collegen to wound bed and cover with foam dressing. 4. Keep dressing clean and dry for 3 days. If active bleeding occurs, apply tight dressing and return to MD or ER. Notify primary doctor or return to Emergency Room if any of the following: ? Fever above 100.6? F. ? Increased pain ? Increase swelling ? Red streaks around your wound ? Drainage becomes foul smelling or changes color ? The wound is larger or deeper ? The wound looks dried out or dark ? Bleeding that does not stop with holding pressure Prescriptions/Referrals Prescriptions/Med Rec: New metoprolol succinate 25 mg tablet extended release 24 hr 25 mg PO QDAY 30 Days Qty: 30 0RF Continued carbidopa-levodopa 50-200 mg tablet extended release 1 tab PO TID Rx Instructions: divide evenly over waking hours losartan 50 mg tablet 50 mg PO QDAY Xarelto 20 mg tablet 20 mg PO QDAY Rx Instructions: must administer with evening meal Changed furosemide [Lasix] 20 mg tablet 40 mg PO QDAY 30 Days Qty: 60 0RF Discontinued bumetanide 1 mg tablet 1 mg PO BID Referrals: Morris Keyes MD [Primary Care Provider, Family Practice] Patient/Caregiver Discharge Instructions Education Materials: What Is Heart Failure, Understanding Atrial Fibrillation, ED Atrial Fibrillation, ED Heart Failure, Congestive (CHF) Print Language: Chadian Stand Alone Forms: Angie Award Info., Patient Portal Info Letter Discharge Order Discharge Orders: Discharge (Routine); Ordered 01/12/25 Ordered By: Preet Byrd Quality Discharge Quality Measures VTE prophylaxis MD Attestestation MD Attestation I have seen and examined the patient. I was physically present for the betancourt portions of the services provided including history, physical exam, diagnosis, treatment plans and orders. I agree with assessment and plan of care as documented by residents. Even though this this note was carefully revised there may still be minor errors in electric engine mechanic due to voice recognition software. Tram Fernandez MD
[2025-01-12] MEDS: IRON SUCROSE CPLX INJ 20 MG/ML VIAL 5 ML 200 MG IVP (11:13)
--- NOTE | 2025-01-12 13:37 | PC.SS ---
Pt ready for DC, SS reached out to Kerri at [facility] who can take to today. Pending transportation setup.
--- NOTE | 2025-01-12 14:42 | PD.IMPROG ---
Documentation for date of: 01/12/25 Subjective Subjective Interval history: pt being discharged agree with the plan f/u as out pt Exam Vital Signs Temp Pulse Resp BP Pulse Ox O2 Del Method O2 Flow Rate 97.7 F 70 18 123/79 94 L Room Air 1 01/12/25 12:00 01/12/25 14:29 01/12/25 14:29 01/12/25 12:00 01/12/25 14:29 01/12/25 12:00 01/10/25 16:00 Routine HEENT Exam Head: Present normocephalic and atraumatic Eye: Present EOMI and PERRL ENT: Present mucous membranes moist Routine Neck Exam Neck: Present supple and trachea midline Routine Respiratory Exam Respiratory: Present chest non-tender, lungs clear, normal breath sounds and no resp distress Routine Cardiovascular Exam Cardiovascular: Present RRR Routine Abdominal Exam Abdominal: Present soft and normoactive bowel sounds Routine Extremities Exam Extremities: Present full ROM Routine Skin Exam Skin: Present intact, dry and warm Routine Neurological Exam Neurological: Present alert, oriented X3 and CN II-XII intact Routine Psychiatric Exam Psychiatric: Present normal affect and normal thought process Objective Labs 01/11/25 05:58 01/11/25 05:58 ABG Interpretation ABG results: 01/07/25 01/08/25 07:00 20:15 ABG pH 7.46 H 7.49 H ABG pCO2 28 L 33 ABG pO2 195 H 99 D ABG HCO3 20 25 ABG O2 Saturation 101 H 99 H ABG Base Excess -4 L 2 Assessment & Plan A&P Narrative f/u as out pt Time Spent With Patient Time: Total time spent is greater than 50% in coordination of care (as documented) at patient's floor/unit and/or counseling patient:
[2025-01-12] MEDS: CARBIDOPA/LEVODOPA CR 50/200 TABCR 1 TAB PO (14:59)
--- NOTE | 2025-01-13 15:46 | ESPR_ITS ---
<Statement entered by Preet Byrd MD - 01/13/25 16:53> I have personally seen and examined the patient, agree with residents assessment and plan Patient plan of care was discussed with the attending physician, Dr. Rebecca Byrd, PGY2 Documentation for date of: 01/11/25 Subjective Subjective Interval history: This Progress Note was written on 01/13/25 to retroactively act as a Progress Note for 01/11/25 as patient had been anticipated to be discharged that day which did not end up happening. Patient was deemed clinically stabilized but due to slight hyperbilirubinemia of 1.5, patient had a liver ultrasound ordered just to rule out any concerning issues. However, the liver ultrasound did not result until later in the day (ended up being normal) which stalled the planned discharge. Exam Vital Signs Temp Pulse Resp BP Pulse Ox O2 Del Method O2 Flow Rate 97.7 F 70 18 123/79 94 L Room Air 1 01/12/25 12:00 01/12/25 14:29 01/12/25 14:29 01/12/25 12:00 01/12/25 14:29 01/12/25 12:00 01/10/25 16:00 Narrative Exam General Appearance: Alert & Oriented X3, thin male who is lying in bed in no acute distress HEENT: Skull symmetrical and atraumatic. Conjunctivae pale pink and moist. Pupils equal, round, reactive to light and accommodation (PERRL). External ear without lesion or discharge. Straight, nares patient, mucosa pink, no discharge. No thyroid nodule appreciated. No cervical lymphadenopathy. Cardio: Normal Rate and Rhythm with S1 and S2 heart sounds. No murmurs or extra heart sounds auscultated. No bruits on carotid auscultation. No peripheral edema or cyanosis. Lungs: Symmetric with good expansion. Chest and back non-tender. Breath sounds vesicular with minimal crackes, no wheezing noted Abdomen: Non-tender, Non-distended, Normal Reactive Bowel Sounds Neuro: Alert, cooperative, oriented to person, place, and time. Speech clear. CN grossly intact. Upper motor strength 5/5 and Lower motor strength 3/5. Sensation intact. Objective Labs 01/11/25 05:58 01/11/25 05:58 ABG Interpretation ABG results: 01/07/25 01/08/25 07:00 20:15 ABG pH 7.46 H 7.49 H ABG pCO2 28 L 33 ABG pO2 195 H 99 D ABG HCO3 20 25 ABG O2 Saturation 101 H 99 H ABG Base Excess -4 L 2 Quality Measures Quality Measures VTE prophylaxis Advance care planning discussed with:: patient Assessment & Plan Plan This is a 84-year-old male with past medical history of parkinsonism on levodopa carbidopa, atrial fibrillation on Xarelto presented to the ED with complaints of shortness of breath since last 5 days. He was admitted for shortness of breath and A-fib with RVR. # Acute hypoxic respiratory failure # Acute decompensated CHF exacerbation, improving Used to take inhalers in the past. Currently not taking any inhalers or any diuretics Shortness of breath since 5 days endorses occasional cough but denies any increased sputum volume, purulence. On examination pedal edema until the shins of bilateral legs. And wheezing present on the both lungs. SpO2 in the 80s on room air but increased to 96% on 6 L of oxygen on nasal cannula Troponin normal, BNP 878, D-dimer normal. ED given 500 cc of NS. ED doc did bedside ultrasound and found IVC collapsible so he gave 500 cc of NS.. Given levofloxacin, Zosyn and methylprednisolone in the ED. Due to elevated BNP, JVD on exam, and CXR, most likely primary contributor to acute respiratory failure is CHF exacerbation CHADS-VASC: 4, HAS-BLED: 2 Dx: -01/07 repeat echocardiogram showed grade II diastolic function with EF 55-60%, severe pulmonary HTN (PASP 54 mmHg), moderate aortic valve sclerosis, severe mitral valve regurgitation, and severely enlarged left atrium and right atrium. Rx: ?Continue IV furosemide 40 mg daily to diurese him -Fluid restriction 1500 mL/day -Duoneb breathing treatments q6HRRT #Hyperbilirubinemia Total bilirubin remains elevated but stable at 1.5 Dx: -01/11 liver US ordered, was unremarkable # Atrial fibrillation, rate-controlled, on anticoagulation Denies any chest pain but endorses occasional palpitations On admission EKG shows atrial fibrillation with RVR in 110s He takes Xarelto 20 mg at home Given Cardizem 120 mg IV 5 mg p.o. in the ED Dx: -01/07 repeat echo findings as above Rx: -PO metoprolol succinate XL 25 mg qD -PO Xarelto 20 mg qD -Consulted Cardiology (Dr. Anaya) for patient's new-onset atrial fibrillation w/ RVR, appreciate recommendations #Microcytic hypochromic anemia, likely iron deficiency Hemoglobin 7, hematocrit 24.0, MCV 76, MCH 22. Type and screen completed On 01/08, patient's Hgb improved only from 7.2->7.6 despite pRBC transfusion x 2 which prompted anemia work-up (however, repeat H&H showed hemoglobin Dx: -Iron IV x 1 # Parkinsonism Bilateral resting tremors PT has evaluated patient on 01/10 and recommends SNF placement Rx: ?Continue his home medication levodopa carbidopa. ?Aspiration precautions -Head of bed elevation 30 degrees #Hypertension Admission BP 134/89 Currently 145/79 Rx: -PO losartan 50 mg qD Code status: Full DVT prophylaxis: Xarelto Diet: Dysphagia 3 - Advanced Padilla: Present Disposition: Tele, anticipate discharge to SNF within next 24 hours pending placement The patient's plan was discussed with my attending Dr. Fernandez and senior resident Dr. Byrd. Hiren Bangura DO PGY-1 Internal Medicine Attending Provider Attestation/Addendum I have seen and examined the patient. I was physically present for the betancourt portions of the services provided including history, physical exam, diagnosis, treatment plans and orders. I agree with assessment and plan of care as documented by residents. Even though this this note was carefully revised there may still be minor errors in retail buyer due to voice recognition software. Tram Fernandez MD
== END 2025-01-12 15:34 | disposition skilled nursing facility (03) | DRG 190 ==
LOC: SERX 05:14 → SERHOLD 06:02 → S3SX 08:44 → S3NX 01-10 00:28
PROVIDERS: Student in an Organized Health Care Education/Training Program; Admitting Provider Student in an Organized Health Care Education/Training Program; Emergency Provider Emergency Medicine; PCP Family Medicine; Visit Provider Student in an Organized Health Care Education/Training Program
DX: J44.1 Chronic obstructive pulmonary disease with (acute) exacerbation (principal); J96.01 Acute respiratory failure with hypoxia; E87.3 Alkalosis; I48.91 Unspecified atrial fibrillation; G20.A1 Parkinson's disease without dyskinesia, without mention of fluctuations; I27.20 Pulmonary hypertension, unspecified; I48.0 Paroxysmal atrial fibrillation; I08.0 Rheumatic disorders of both mitral and aortic valves; E86.0 Dehydration; I50.9 Heart failure, unspecified; I44.7 Left bundle-branch block, unspecified; Z79.01 Long term (current) use of anticoagulants; Z87.891 Personal history of nicotine dependence; D50.9 Iron deficiency anemia, unspecified; D72.819 Decreased white blood cell count, unspecified; Z79.899 Other long term (current) drug therapy
CPT/HCPCS: 36415; 36600; 51701; 51702; 71045; 76705; 80053; 81001; 82248; 82270; 82607; 82728; 82746; 82803; 83540; 83550; 83605; 83615; 83690; 83735; 83880; 84100; 84145; 84484; 85014; 85018; 85025; 85046; 85379; 85610; 85730; 86331; 86635; 86850; 86900; 86901; 86923; 87040; 87502; 87811; 92526; 92610; 93005; 93225; 93306; 94640; 96365; 96366; 96375; 96376; 97162; 99285; A4314; A9270; J0456; J1100; J1756; J1938; J1956; J2543; J3490; J7050; J7999; P9016; Q0138

== ENCOUNTER 2025-02-25 16:52 | Inpatient (IN) | payer MEDICARE, SELFPAY ==
[2025-02-25] VITALS (14 sets, daily range): BP systolic 95–125; BP diastolic 53–75; PULSE 21–140; RESP 12–137; TEMP 36.6–39.3; O2SAT 84–100; BMI 19.8
--- NOTE | 2025-02-25 17:05 | XR_ITS ---
EXAMINATION: AP chest single view TECHNIQUE: AP portable sitting chest single view Date and time: February 25, 2025, 1731 hours, comparison January 08, 2025 INDICATIONS: Sepsis alert today, shortness of breath chest pain FINDINGS: Mild enlargement cardiac contour Mild vascular congestion. Significant pneumonia left base. Prominent osteopenia IMPRESSION: Significant pneumonia left base
--- NOTE | 2025-02-25 17:05 | EKG_ITS ---
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
--- NOTE | 2025-02-25 17:27 | PD.EDSOB ---
ED SOB =RME/HPI General Chief Complaint: Shortness of Breath/Dyspnea Stated Complaint: SOB Time Seen by Provider: 02/25/25 16:55 Arrival date/time: 02/25/25 16:52 RME / HPI RME / HPI Narrative: 84 year old male with history of Parkinson disease, atrial fibrillation, CHF, COPD, on 2L supplemental oxygen presents to the ED BIBA from [facility] for evaluation of shortness of breath today. Per medics, patient received daily breathing treatments and noted to be having increased work of breathing today. State while receiving his breathing treatment noted his SPO2 to be 86%, prompting calling 911. Related Data Home Medications ?Medication ?Instructions ?Recorded ?Confirmed carbidopa ER 50 mg-levodopa 200 mg 1 tab PO TID 01/07/25 02/26/25 tablet,extended release losartan 50 mg tablet 50 mg PO QDAY 01/07/25 02/26/25 rivaroxaban 20 mg tablet (Xarelto) 20 mg PO QDAY 01/07/25 02/26/25 furosemide 20 mg tablet (Lasix) 20 mg PO Q12H 02/26/25 02/26/25 ipratropium 0.5 mg-albuterol 3 mg 3 ml inhalation Q6H PRN shortness 02/26/25 02/26/25 (2.5 mg base)/3 mL nebulization of breath soln metoprolol succinate 25 mg 25 mg PO DAILY 02/26/25 02/26/25 tablet,extended release 24 hr Allergies Allergy/AdvReac Type Severity Reaction Status Date / Time No Known Allergies Allergy Verified 02/25/25 17:18 Review of Systems Review of Systems Systems Reviewed: All systems reviewed, normal except as documented Past Medical History Past Medical History NEUROLOGIC: Positive Parkinson's Disease CARDIAC: Positive Atrial Fibrillation, Congestive Heart Failure and Hypertension RESPIRATORY: Positive Chronic Obstructive Pulmonary Disease (COPD) Social History SMOKING STATUS: Unknown if ever smoked ED Exam Narrative Physical exam: GENERAL APPEARANCE: Awake, tachypneic, pale, mildly diaphoretic HEENT: Normocephalic, atraumatic; pupils equal, round, reactive to light; EOMI; mucous membranes pink, moist; oropharynx clear NECK: Supple LUNGS: Coarse crackles throughout; no wheezes, no rales, no rhonchi HEART: Regular rate, regular rhythm; normal S1, S2; no murmurs ABDOMEN: non distended; normal BS; soft, no tenderness, no guarding, no rebound; no masses, no organomegaly, no hernia EXTREMITIES: atraumatic; no peripheral edema NEUROLOGIC: Awake, tracks with eyes PSYCHIATRIC: appropriate mood and affect SKIN: warm, pale, mildly diaphoretic; no rashes Course Quality Measures Current suspected stage: sepsis Possible source: pulmonary Blood cultures ordered: completed in ED Antibiotic ordered: Yes Pertinent labs: 02/25/25 02/25/25 17:05 17:10 Lactic Acid 3.2 H mMol/L (0.4-2.0) Procalcitonin 1.01 H ng/ml (0.0-0.49) sepsis Orders Category Date Time Status Nuclear Physicist NOW Care 02/25/25 17:05 Completed EKG (ED ONLY) *Do not use* NOW Care 02/25/25 17:05 Completed EKG (ED Only) Stat Exams 02/25/25 17:05 Draft XR chest 1V portable Stat Exams 02/25/25 17:05 Completed B-Type Natriuretic Peptide Stat Lab 02/25/25 17:10 Completed Blood Culture (Lab) Stat Lab 02/25/25 17:16 Completed CBC Stat Lab 02/25/25 17:10 Completed Comprehensive Metabolic Panel Stat Lab 02/25/25 17:10 Completed Lactate (Lactic Acid) Stat Lab 02/25/25 17:05 Completed Lipase Stat Lab 02/25/25 17:10 Completed Magnesium Stat Lab 02/25/25 17:10 Completed Partial Thromboplastin Time Stat Lab 02/25/25 17:10 Completed Procalcitonin Stat Lab 02/25/25 17:10 Completed Prothrombin Time with INR Stat Lab 02/25/25 17:10 Completed Troponin I Stat Lab 02/25/25 17:10 Completed Urinalysis Stat Lab 02/25/25 19:05 Completed Urine Culture Stat Lab 02/25/25 19:05 Completed VBG [Venous Blood Gas] Routine Lab 02/25/25 20:17 Completed ALBUTEROL RT 0.5ml [Proventil Rt 0.5ml] Med 02/25/25 19:05 Discontinued 10 mg INH X1 ONE Acetaminophen Ivpb [Ofirmev Inj] Med 02/25/25 17:15 Discontinued 1,000 mg in 100 ml IV X1 Azithromycin Inj [Zithromax Inj] 500 mg Med 02/25/25 18:39 Discontinued Sodium Chloride 0.9% 250 ml [Ns] 250 ml IV STAT Furosemide Inj [Lasix Inj] Med 02/25/25 17:07 Discontinued 40 mg IVP X1 ONE Ipratropium [place] Rt Licha [Atrovent Rt Licha] Med 02/25/25 19:05 Discontinued 1 mg INH X1 ONE MethylPREDNISolone.* [SoluMEDROL Inj] Med 02/25/25 19:05 Discontinued 125 mg IVP X1 ONE Sodium Chloride Rt Licha 0.9% [NS Rt Licha 0.9%] Med 02/25/25 19:05 Discontinued 3 ml INH PRN PRN cefTRIAXone/D5w 1gm IV premix [Rocephin/D5w 1gm IV Med 02/25/25 18:39 Discontinued premix] 1 gm in 50 ml IV STAT BiPAP / CPAP NEEDED RT 02/25/25 18:03 Completed Vital Signs Vital signs: Vital Signs Pulse Rate 137 H 02/25/25 17:00 Shortness of Breath / Dyspnea MDM Narrative MDM Narrative:: Ev Mckay am scribing for and in the presence of Dr. Rojas. 1800: Care signed out to Dr. Mcpherson pending labs and final disposition. Patient data External records reviewed:: [facility] previous records, EMS form and [facility] records Clinical information provided by:: EMS Social determinants that could affect healthcare access:: housing ([facility] resident ) Patient has the following chronic illnesses:: Parkinson disease, atrial fibrillation, CHF, COPD, on 2L supplemental oxygen How is presenting disease/condition affected by chronic disease/condition?: exacerbated by Evaluation data The following diagnostics were reviewed and interpreted by me:: lab results, radiology exam(s) and EKG tracing(s) (EKG at 17:11, atrial fibrillation with RVR, rate 131, left bundle branch block ) Lab and/or radiology exams considered but not ordered:: None Interpretation Summary: Ordering Physician: Rupinder Rojas MD Date of Service: 02/25/25 Procedure(s): XR chest 1V portable Accession Number(s): [id number] cc: Osman Vines MD; Rupinder Rojas MD~ EXAMINATION: AP chest single view TECHNIQUE: AP portable sitting chest single view Date and time: February 25, 2025, 1731 hours, comparison January 08, 2025 INDICATIONS: Sepsis alert today, shortness of breath chest pain FINDINGS: Mild enlargement cardiac contour Mild vascular congestion. Significant pneumonia left base. Prominent osteopenia IMPRESSION: Significant pneumonia left base Dictated By: Osman Vines MD Signed By: <Electronically signed by Osman Vines MD in OV> 02/25/25 [id number] Medications / Prescriptions Medications or Prescriptions considered but not ordered:: None Medication administrations:: Medication Administration History Discontinued Medications Acetaminophen (Acetaminophen 325 Mg Tablet) 650 mg PO Q6H PRN PRN Reason: Fever >101.5 or pain 1-3 Stop: 03/27/25 20:08 Last Admin: 02/27/25 18:23 Dose: 650 mg Documented By: Albuterol (Albuterol Rt 2.5 Mg/0.5 Ml Nebu) 10 mg INH X1 ONE Stop: 02/25/25 19:06 Last Admin: 02/25/25 19:33 Dose: 10 mg Documented By: PAR Albuterol/Ipratropium (Albuterol/Ipratropium (Duoneb) Rt Licha 3 Ml Nebu) 3 ml INH [id number] NATHALY Stop: 03/28/25 06:59 Last Admin: 02/26/25 07:05 Dose: 3 ml Documented By: MIKE Albuterol/Ipratropium (Albuterol/Ipratropium (Duoneb) Rt Licha 3 Ml Nebu) 3 ml INH Q4HR PRN PRN Reason: SHORTNESS OF BREATH OR WHEEZE Stop: 03/27/25 20:15 Albuterol/Ipratropium (Albuterol/Ipratropium (Duoneb) Rt Licha 3 Ml Nebu) 3 ml INH Q4HRRT NATHALY Stop: 03/28/25 07:14 Last Admin: 03/03/25 15:53 Dose: 3 ml Documented By: Admin: 03/03/25 15:53 Dose: Not Given Documented By: RG Non-Admin Reason: RT elsewhere Admin: 03/03/25 07:12 Dose: 3 ml Documented By: Admin: 03/02/25 22:31 Dose: 3 ml Documented By: [email or web address] Admin: 03/02/25 18:03 Dose: 3 ml Documented By: [email or web address] Admin: 03/02/25 16:13 Dose: Not Given Documented By: EV Non-Admin Reason: RT needed elsewhere Admin: 03/02/25 10:28 Dose: 3 ml Documented By: JOSE DE JESUS Admin: 03/02/25 07:29 Dose: 3 ml Documented By: JOSE DE JESUS Admin: 03/02/25 02:04 Dose: 3 ml Documented By: Admin: 03/01/25 22:23 Dose: 3 ml Documented By: Admin: 03/01/25 18:41 Dose: 3 ml Documented By: Admin: 03/01/25 15:11 Dose: 3 ml Documented By: Admin: 03/01/25 10:33 Dose: 3 ml Documented By: Admin: 03/01/25 06:40 Dose: 3 ml Documented By: Admin: 03/01/25 02:30 Dose: 3 ml Documented By: Admin: 02/28/25 22:59 Dose: 3 ml Documented By: Admin: 02/28/25 19:51 Dose: 3 ml Documented By: FYDaniel Admin: 02/28/25 14:38 Dose: 3 ml Documented By: Admin: 02/28/25 10:44 Dose: 3 ml Documented By: Admin: 02/28/25 07:29 Dose: 3 ml Documented By: Admin: 02/28/25 02:46 Dose: 3 ml Documented By: Admin: 02/27/25 22:48 Dose: 3 ml Documented By: Admin: 02/27/25 19:08 Dose: 3 ml Documented By: Admin: 02/27/25 15:08 Dose: 3 ml Documented By: Admin: 02/27/25 11:45 Dose: 3 ml Documented By: Admin: 02/27/25 05:53 Dose: 3 ml Documented By: Admin: 02/27/25 02:38 Dose: 3 ml Documented By: Admin: 02/26/25 22:25 Dose: 3 ml Documented By: Admin: 02/26/25 19:29 Dose: 3 ml Documented By: Admin: 02/26/25 15:23 Dose: 3 ml Documented By: Admin: 02/26/25 11:23 Dose: 3 ml Documented By: Admin: 02/26/25 11:23 Dose: Not Given Documented By: MIKE Non-Admin Reason: Wrong Time Carbidopa/Levodopa (Carbidopa/Levodopa Cr 50/200 Tabcr) 1 tab PO Q8H NATHALY Stop: 03/28/25 08:59 Last Admin: 03/03/25 17:03 Dose: 1 tab Documented By: Admin: 03/03/25 08:46 Dose: 1 tab Documented By: Admin: 03/03/25 01:08 Dose: 1 tab Documented By: Admin: 03/02/25 17:23 Dose: 1 tab Documented By: Admin: 03/02/25 09:27 Dose: 1 tab Documented By: Admin: 03/02/25 00:27 Dose: 1 tab Documented By: Admin: 03/01/25 17:05 Dose: 1 tab Documented By: Admin: 03/01/25 08:10 Dose: 1 tab Documented By: Admin: 03/01/25 00:26 Dose: 1 tab Documented By: Admin: 02/28/25 19:38 Dose: 1 tab Documented By: Admin: 02/28/25 08:08 Dose: 1 tab Documented By: Admin: 02/28/25 01:47 Dose: 1 tab Documented By: Admin: 02/27/25 18:23 Dose: 1 tab Documented By: Admin: 02/27/25 08:44 Dose: 1 tab Documented By: Admin: 02/27/25 02:25 Dose: 1 tab Documented By: Admin: 02/26/25 16:29 Dose: 1 tab Documented By: Admin: 02/26/25 09:50 Dose: 1 tab Documented By: ARMAAN Furosemide (Furosemide Inj 10 Mg/Ml 4ml Vial) 40 mg IVP X1 ONE Stop: 02/25/25 17:08 Last Admin: 02/25/25 17:53 Dose: 40 mg Documented By: LEIGHA Furosemide (Furosemide Inj 10 Mg/Ml Vial 2 Ml) 20 mg IVP X1 ONE Stop: 02/28/25 07:55 Last Admin: 02/28/25 08:09 Dose: 20 mg Documented By: Furosemide (Furosemide 20 Mg Tablet) 20 mg PO BIDD [facility] Stop: 03/30/25 08:59 Last Admin: 02/28/25 09:46 Dose: Not Given Documented By: Non-Admin Reason: Held per Dr. Bartholomew Furosemide (Furosemide 20 Mg Tablet) 20 mg PO BIDD [facility] Stop: 03/31/25 08:59 Last Admin: 03/03/25 17:03 Dose: 20 mg Documented By: Admin: 03/03/25 05:11 Dose: 20 mg Documented By: Admin: 03/02/25 17:23 Dose: 20 mg Documented By: Admin: 03/02/25 05:26 Dose: 20 mg Documented By: Admin: 03/01/25 17:06 Dose: 20 mg Documented By: SC Admin: 03/01/25 08:08 Dose: 20 mg Documented By: SC Acetaminophen (Ofirmev Inj) 1,000 mg in 100 mls @ 250 mls/hr IV X1 ONE Stop: 02/25/25 17:38 Last Infusion: 02/25/25 20:45 Dose: Infused Documented By: Infusion: 02/25/25 18:22 Dose: Infused Documented By: Admin: 02/25/25 17:58 Dose: 250 mls/hr Documented By: ED Ceftriaxone Sodium/Dextrose (Rocephin/D5w 1gm Iv Premix) 1 gm in 50 mls @ 100 mls/hr IV STAT STA Stop: 02/25/25 19:08 Last Infusion: 02/25/25 21:21 Dose: Infused Documented By: Admin: 02/25/25 20:43 Dose: 100 mls/hr Documented By: EB Azithromycin 500 mg/ Sodium (Chloride) 250 mls @ 250 mls/hr IV STAT STA Stop: 02/25/25 19:38 Last Infusion: 02/25/25 22:03 Dose: Infused Documented By: Admin: 02/25/25 20:52 Dose: 250 mls/hr Documented By: EB Ceftriaxone Sodium/Dextrose (Rocephin/D5w 1gm Iv Premix) 1 gm in 50 mls @ 100 mls/hr IV QDAY NATHALY Stop: 03/05/25 08:59 Last Admin: 03/03/25 08:46 Dose: 100 mls/hr Documented By: Infusion: 03/02/25 09:58 Dose: Infused Documented By: Admin: 03/02/25 09:28 Dose: 100 mls/hr Documented By: Infusion: 03/01/25 08:38 Dose: Infused Documented By: Admin: 03/01/25 08:08 Dose: 100 mls/hr Documented By: SC Infusion: 02/28/25 08:39 Dose: Infused Documented By: Admin: 02/28/25 08:09 Dose: 100 mls/hr Documented By: Infusion: 02/27/25 19:04 Dose: Infused Documented By: Admin: 02/27/25 08:44 Dose: 100 mls/hr Documented By: Infusion: 02/26/25 18:58 Dose: Infused Documented By: Admin: 02/26/25 09:04 Dose: 100 mls/hr Documented By: XIONM Azithromycin 500 mg/ Sodium (Chloride) 250 mls @ 250 mls/hr IV QPM NATHALY Stop: 02/27/25 21:59 Last Infusion: 02/28/25 06:22 Dose: Infused Documented By: Admin: 02/27/25 20:14 Dose: 250 mls/hr Documented By: Infusion: 02/27/25 19:03 Dose: Infused Documented By: Admin: 02/26/25 20:50 Dose: 250 mls/hr Documented By: JANAK Lactated Ringer's (Lactated Ringers) 1,000 mls @ 999 mls/hr IV .Q1H1M ONE Stop: 02/26/25 01:00 Last Infusion: 02/26/25 18:59 Dose: Infused Documented By: Admin: 02/26/25 00:08 Dose: 999 mls/hr Documented By: CHRISTIANO Sodium Chloride (Ns) 500 mls @ 125 mls/hr IV .Q4H ONE Stop: 02/26/25 10:17 Sodium Chloride (Ns) 1,000 mls @ 125 mls/hr IV .Q8H ONE Stop: 02/26/25 14:17 Sodium Chloride (Ns) 1,000 mls @ 125 mls/hr IV .Q8H NATHALY Stop: 03/28/25 06:29 Last Infusion: 02/26/25 18:59 Dose: Infused Documented By: Admin: 02/26/25 06:36 Dose: 125 mls/hr Documented By: JANAK Sodium Chloride (Ns) 1,000 mls @ 125 mls/hr IV .Q8H ONE Stop: 02/26/25 15:06 Last Infusion: 02/26/25 18:59 Dose: Infused Documented By: Admin: 02/26/25 07:30 Dose: 125 mls/hr Documented By: ARMAAN Lactated Ringer's (Lactated Ringers) 500 mls @ 999 mls/hr IV .Q31M ONE Stop: 02/26/25 08:38 Lactated Ringer's (Lactated Ringers) 500 mls @ 999 mls/hr IV .Q31M ONE Stop: 02/26/25 09:07 Last Infusion: 02/26/25 18:59 Dose: Infused Documented By: Admin: 02/26/25 09:03 Dose: 999 mls/hr Documented By: ARMAAN Potassium Chloride (Kcl Ivpb) 10 meq in 100 mls @ 100 mls/hr IV Q1H NATHALY Stop: 03/02/25 12:09 Last Admin: 03/02/25 16:01 Dose: 50 mls/hr Documented By: Infusion: 03/02/25 16:01 Dose: Infused Documented By: Admin: 03/02/25 14:01 Dose: 50 mls/hr Documented By: Infusion: 03/02/25 13:47 Dose: Infused Documented By: Admin: 03/02/25 11:47 Dose: 50 mls/hr Documented By: Infusion: 03/02/25 10:28 Dose: Infused Documented By: Admin: 03/02/25 09:28 Dose: 100 mls/hr Documented By: UBALDO Ipratropium [place] (Ipratropium Rt 0.5 Mg/ 2.5 Ml Nebu) 1 mg INH X1 ONE Stop: 02/25/25 19:06 Last Admin: 02/25/25 19:33 Dose: 1 mg Documented By: FIONA Methylprednisolone Sodium Succinate (Methylprednisolone Sod Succ 62.5 Mg/Ml 2ml Vial) 125 mg IVP X1 ONE Stop: 02/25/25 19:06 Last Admin: 02/25/25 20:44 Dose: 125 mg Documented By: CHRISTIANO Metoprolol Succinate (Metoprolol Succinate Xl 25 Mg Tabcr) 25 mg PO QDAY [facility] Stop: 03/28/25 08:59 Metoprolol Succinate (Metoprolol Succinate Xl 25 Mg Tabcr) 25 mg PO QDAY [facility] Stop: 03/28/25 08:59 Last Admin: 03/03/25 08:46 Dose: 25 mg Documented By: Admin: 03/02/25 09:27 Dose: 25 mg Documented By: R Admin: 03/01/25 08:09 Dose: 25 mg Documented By: SC Admin: 02/28/25 08:08 Dose: 25 mg Documented By: Admin: 02/27/25 08:44 Dose: 25 mg Documented By: Admin: 02/26/25 09:50 Dose: 25 mg Documented By: ARMAAN Ondansetron HCl (Ondansetron Inj 2 Mg/Ml Inj 2 Ml) 4 mg IVP Q6H PRN; Protocol PRN Reason: NAUSEA OR VOMITING Stop: 03/27/25 20:08 Rivaroxaban (Rivaroxaban 10 Mg Tablet) 20 mg PO QDAY NATHALY Stop: 03/28/25 08:59 Last Admin: 03/03/25 08:46 Dose: 20 mg Documented By: Admin: 03/02/25 09:27 Dose: 20 mg Documented By: Admin: 03/01/25 08:08 Dose: 20 mg Documented By: SC Admin: 02/28/25 08:09 Dose: 20 mg Documented By: Admin: 02/27/25 08:44 Dose: 20 mg Documented By: Admin: 02/26/25 09:50 Dose: 20 mg Documented By: ARMAAN Sennosides (Senna/Docusate Sod 1 Tab Tablet) 1 tab PO QDAY PRN; Protocol PRN Reason: CONSTIPATION Stop: 03/27/25 20:15 Sodium Chloride (Sodium Chloride Rt Licha 0.9% 3 Ml Nebu) 3 ml INH PRN PRN PRN Reason: SOLN Stop: 03/27/25 19:04 Last Admin: 02/25/25 19:34 Dose: 3 ml Documented By: FIONA Sodium Chloride (Sodium Cl Rt Licha 3% 4 Ml Nebu (Non-Formulary)) 4 ml INH Q4HRRT NATHALY Stop: 03/28/25 06:59 Sodium Chloride (Sodium Cl Rt Licha 3% 4 Ml Nebu (Non-Formulary)) 4 ml INH Q4HRRT PRN PRN Reason: congestion, cough Stop: 03/28/25 06:59 See above Consultations Consultation(s) initiated? (list below): No Diagnosis Shortness of Breath Differential Diagnosis: acute exacerbation of chronic obstructive airways disease, congestive heart failure, community acquired pneumonia and asthma with exacerbation Most likely diagnosis given after review of the tests above:: Shortness of breath Admission Indicated Admission indicated?: not indicated Explain why admission is indicated or not indicated:: Signed out pending final dispo Admission Request Was there a request for admission?: No Disposition Plan Disposition Plan: other (specify) (Signed out to Dr. Mcpherson ) Discharge Plan Plan Patient Disposition: Admit Acute Care w/in Hospital Patient condition on transfer: Stable and Benefits outweigh risks Problem List Clinical Impression: Pneumonia
[2025-02-25 17:40] LABS: Lactate (Lactic Acid) 3.2 mMol/L (0.4-2.0)
[2025-02-25 17:48] LABS: Basophils # (Auto) 0.0 Thou/mm3 (0.0-0.2); Basophils % (Auto) 0 % (0-2.5); Eosinophils # (Auto) 0.0 Thou/mm3 (0.0-0.5); Eosinophils % (Auto) 0 % (0-10); Hematocrit 33.7 % (41.0-53.0); Hemoglobin 10.6 g/dL (13.5-16.0); Immature Granulocytes Auto 0.03 Thou/mm3 (0.00-0.00); Lymphocytes # (Auto) 0.5 Thou/mm3 (1.0-4.8); Lymphocytes % (Auto) 6 % (10-50); Mean Corpuscular HGB Conc 31.5 g/dl (31.0-37.0); Mean Corpuscular Hemoglobin 28.7 pg (25.0-35.0); Mean Corpuscular Volume 91 fL (80-100); Monocytes # (Auto) 0.1 Thou/mm3 (0.0-0.8); Monocytes % (Auto) 1 % (0-12); Neutrophils # (Auto) 7.1 Thou/mm3 (1.8-7.7); Neutrophils % (Auto) 92 % (37-80); Nucleated Red Blood Cell # 0.00 Thou/mm3 (0.00-0.00); Nucleated Red Blood Cell % 0 /100 WBC (0); Platelet Count 198 Thou/mm3 (140-440); Red Blood Count 3.69 Miln/mm3 (4.50-5.90); White Blood Count 7.7 Thou/mm3 (3.8-10.6)
[2025-02-25] MEDS: FUROSEMIDE INJ 10 MG/ML 4ML VIAL 40 MG IVP (17:53)
[2025-02-25] MEDS: ACETAMINOPHEN IVPB 1,000 MG/100 ML VIAL 250 MG IV (17:58)
[2025-02-25 18:02] LABS: INR 1.4 (0.9-1.3); Partial Thromboplastin Time 43.2 Seconds (22.0-36.0); Prothrombin Time 14.9 Seconds (9.0-12.2)
[2025-02-25 18:11] LABS: B-Type Natriuretic Peptide 483 pg/mL (0-100)
[2025-02-25 18:15] LABS: Alanine Aminotransferase 19 U/L (10-49); Albumin, Serum 3.7 gm/dL (3.4-4.8); Albumin/Globulin Ratio 1.3 (1.2-2.2); Alkaline Phosphatase 79 U/L (46-116); Anion Gap 8 (7-16); Aspartate Amino Transferase 20 U/L (0-34); BUN/Creatinine Ratio 23 Ratio (12-20); Bilirubin,Total 1.1 mg/dL (0.3-1.2); Blood Urea Nitrogen 18 mg/dL (9-23); Calcium 9.7 mg/dL (8.3-10.6); Calcium (Corrected) 9.9 mg/dL (8.5-10.1); Carbon Dioxide 25.8 mMol/L (20.0-31.0); Chloride 103 mMol/L (98-107); Creatinine (Component) 0.8 mg/dL (0.6-1.3); Estimated Creatinine Clearance 55.3 mL/min (>60); Globulin 2.8 gm/dL (2.3-3.5); Glucose 109 mg/dL (74-106); Lipase 21 U/L (12-53); Magnesium 2.3 mg/dL (1.6-2.6); Osmolality,Calculated 276 (275-295); Potassium 4.4 mMol/L (3.4-5.1); Procalcitonin 1.01 ng/ml (0.0-0.49); Sodium 137 mMol/L (136-145); Total Protein 6.5 gm/dL (5.7-8.2); Troponin I < 0.020 ng/mL (0.0-0.045); eGFR > 60 See Note
--- NOTE | 2025-02-25 18:18 | PD.EDADDENDU ---
Emergency Room Addendum <Marla Antoine - Last Filed: 02/25/25 19:04> Addendum Narrative: 1800: Care assumed from Dr. Rojas, the previous shift emergency physician. Past medical, surgical, social and family history reviewed. Vitals and home medications reviewed. Results and treatment plan discussed. I will assume the care of the patient at this time and will follow the patient. Please refer to the emergency department record for history and examination from initial visit. Patient is a 84 yo male with history of Parkinson's disease, A-fib, CHF, COPD usually on 2 L supplemental oxygen by ambulance from [facility] for shortness of breath. Patient usually receives daily breathing treatments however has had increased work of breathing today. Oxygen sats at the facility was 86% on his supplemental oxygen and so patient was brought to the emergency department for evaluation. Prior provider evaluated patient. Per report patient was working hard to breathe, appeared to be fluid overloaded, he was given furosemide and started on BiPAP. Concern for CHF exacerbation, COPD exacerbation, ACS pneumonia. They ordered labs EKG chest x-ray. Labs without leukocytosis, had d have a left shift of 92%. Patient has a hemoglobin of 10.6 this is improved from prior. No significant acute electrolyte abnormality, patient's lactic acid is 3.2 BNP is 43 troponin not elevated procalcitonin 1.01. Chest x-ray with significant pneumonia at the left base. I ordered antibiotics. On my evaluation 1902: Discussed case with the resident physician, attending Dr. Fernandez from Hospitalist service regarding admission. Discussed patients ED course, exam findings, labs, and radiology results. The Hospitalist agrees to accept the patient for admission. <Parris Mcpherson MD - Last Filed: 04/06/25 13:32> Addendum Narrative: 1800: Care assumed from Dr. Rojas, the previous shift emergency physician. Past medical, surgical, social and family history reviewed. Vitals and home medications reviewed. Results and treatment plan discussed. I will assume the care of the patient at this time and will follow the patient. Please refer to the emergency department record for history and examination from initial visit. Patient is a 84 yo male with history of Parkinson's disease, A-fib, CHF, COPD usually on 2 L supplemental oxygen by ambulance from [facility] for shortness of breath. Patient usually receives daily breathing treatments however has had increased work of breathing today. Oxygen sats at the facility was 86% on his supplemental oxygen and so patient was brought to the emergency department for evaluation. Prior provider evaluated patient. Per report patient was working hard to breathe, appeared to be fluid overloaded, he was given furosemide and started on BiPAP. Concern for CHF exacerbation, COPD exacerbation, ACS pneumonia. They ordered labs EKG chest x-ray. Labs without leukocytosis, had d have a left shift of 92%. Patient has a hemoglobin of 10.6 this is improved from prior. No significant acute electrolyte abnormality, patient's lactic acid is 3.2 BNP is 43 troponin not elevated procalcitonin 1.01. Chest x-ray with significant pneumonia at the left base. I ordered antibiotics. On my evaluation 1902: Discussed case with the resident physician, attending Dr. Fernandez from Hospitalist service regarding admission. Discussed patients ED course, exam findings, labs, and radiology results. The Hospitalist agrees to accept the patient for admission. Total critical care time: 40min Due to a high probability of clinically significant, life threatening deterioration, the patient required my highest level of preparedness to intervene emergently and I personally spent this critical care time directly and personally managing the patient. This critical care time included obtaining a history; examining the patient; pulse oximetry; ordering and review of studies; arranging urgent treatment with development of a management plan; evaluation of patient's response to treatment; frequent reassessment; and, discussions with other providers. This critical care time was performed to assess and manage the high probability of imminent, life-threatening deterioration that could result in multi-organ failure. It was exclusive of separately billable procedures and treating other patients and teaching time. Please see MDM section and the rest of the note for further information on patient assessment and treatment.
[2025-02-25 19:11] LABS: Collection Type, Urine Clean Catch; Squamous Epithelial Cell,Urine 0 /hpf (0-5)
[2025-02-25 19:22] LABS: Amorphous Crystals,Urine Present (Absent); Bacteria,Urine Rare; Bilirubin,Urine Negative (Negative); Blood,Urine Negative (Negative); Clarity,Urine Clear (Clear/Hazy); Color,Urine Yellow (Lt Yel-Yel); Glucose, Urine Negative (Negative); Ketones,Urine Negative (Negative); Leukocyte Esterase,Urine Negative (Negative); Nitrite,Urine Negative (Negative); PH,Urine 7.0 (5.0-7.0); Protein,Urine 1+ (Neg - Trace); RBC,Urine 1 /hpf (0-3); Specific Gravity,Urine 1.016 (1.001-1.035); Urobilinogen,Urine Negative mg/dL (0.0-1.0); WBC,Urine < 1 /hpf (0-5)
[2025-02-25] MEDS: ALBUTEROL RT 2.5 MG/0.5 ML NEBU 10 MG INH (19:33)
[2025-02-25] MEDS: IPRATROPIUM RT 0.5 MG/ 2.5 ML NEBU 1 MG INH (19:33)
[2025-02-25] MEDS: SODIUM CHLORIDE RT SOL 0.9% 3 ML NEBU INH (19:34)
[2025-02-25 20:22] LABS: Base Excess, Venous 3 (-3-3); O2 Saturation, Venous 72 % (96-97); PCO2, Venous 36 mmHg (36-56); PO2, Venous 40 mmHg (15-58); pH, Venous 7.47 (7.33-7.66)
--- NOTE | 2025-02-25 20:25 | ESHP_ITS ---
<Statement entered by Preet Byrd MD - 02/26/25 06:30> Is a 84-year-old male with significant past medical history of atrial fibrillation on Xarelto, Parkinson's disease on carbidopa levodopa, HFpEF on Lasix, last EF is 55 to 60% on 01/03/2025, hypertension, severe pulmonary hypertension brought to the hospital from SNF in view of decreased oxygen saturations noted and as the patient noted to have shortness of breath and increased work of breathing. Vitals at the time of admission are significant for blood pressure 124/71 mmHg, pulse rate 137 bpm, respiratory rate 33/min, temperature 102.8 ?F, SpO2 98% with 6 L oxy mask. Patient was placed on BiPAP by the ED doctor as patient noted to have increased work of breathing on OxyMask and in view of previous history of CHF. On physical examination, patient is on BiPAP, resting comfortably, fine crackles heard in the left basilar area, no pedal edema noted. Labs at the time of admission are significant for lactate 2.4, BNP 483, procalcitonin 1.01. Urinalysis is unremarkable except for trace proteinuria chest x-ray showed infiltrates in the left base. EKG showed atrial fibrillation with rapid ventricular rate. Admitted in the hospital for acute hypoxic respiratory failure secondary to pneumonia, likely community-acquired. Started on ceftriaxone, azithromycin. No fluids were given initially in view of patient's history of heart failure and Lasix usage. Later noted to have lactate uptrending to 4.6. A liter of bolus LR is given. Repeat lactate was ordered and started on IV fluids, 500 mL at 125 mL/h. Continue rest of his home medications and held Lasix for now as patient does not appear to be fluid overloaded I have personally seen and examined the patient, agree with residents assessment and plan Patient plan of care was discussed with the attending physician, Dr. Rebecca Byrd, PGY2 Documentation for date of: 02/25/25 HPI History of Present Illness Chief complaint: Shortness of breath History of present illness: This patient is an 84-year-old male with a history of Parkinson's disease, atrial fibrillation (on Xarelto), HFpEF (55 to 60%, 01/03/2025), hypertension, and pulmonary hypertension who presented to [facility] ED on 02/25 for shortness of breath and increased work of breathing. Patient was admitted for management of acute hypoxic respiratory failure secondary to pneumonia. The patient was recently admitted back on 01/07/2025 for acute hypoxic respiratory failure secondary to CHF exacerbation. The patient was manage via IV diuresis with repeat echocardiogram on 12/2019 showing grade 2 diastolic dysfunction with LVEF 55 to 60% and severe pulmonary hypertension (54 mmHg). The patient was discharged on 01/13/2025 back to [facility], however on 02/25, patient was noted to have shortness of breath with increased work of breathing. Patient was found to have oxygen saturation of 86% on room air even after completing his breathing treatments at [facility], prompting call to 911. Patient was started on OxyMask by EMS, and by the time the patient arrived to the ED, the patient was saturating 98% but was noted to still have a respiratory rate in the 30s, so patient was put on BiPAP instead. Since the patient was on BiPAP, it was very difficult for the patient to talk. The patient was able to answer simple yes or no questions only. Respiratory rate was found to be in the low 20s on BiPAP. Patient nodded yes to having improvement in his shortness of breath with the BiPAP on. Patient shook his head no to any fevers, chills, chest pain, abdominal pain, and dysuria. Per chart review, it does not appear that the patient has any difficulty with mentation at baseline. POLST form from [facility] shows that the patient is full code. ED course: Initial vitals significant for heart rate 137, respiratory rate 33, and temperature 102.8 ?F Initial labs significant for WBC 7.7, hemoglobin 10.6, INR 1.4, lactic acid 3.2, BNP 483, and procalcitonin 1.01 Chest x-ray significant for pneumonia left base Patient was started on BiPAP due to continued elevated respiratory rate on oxy mask Patient was given Lasix 40 mg x 1, 1 g of IV acetaminophen, albuterol/ipratropium, and given a dose of ceftriaxone and azithromycin Past Surgical History: Unable to obtain from patient Current Medication(s): Carbidopa levodopa ER 50-200 mg every 8 hours Losartan 50 mg daily (hold if SBP less than 110 or DBP less than 60) Lasix 40 mg daily (hold if SBP less than 100 or DBP less than 60) Metoprolol succinate ER 25 mg daily (hold if SBP less than 110 or DBP less than 60 or heart rate less than 60) Xarelto 20 mg daily DuoNeb every 6 hours as needed for shortness of breath or oxygen saturation 90% or less Allergies (w/ Reactions): NKDA Family History: Noncontributory Alcohol Intake: Occasional alcohol intake per chart review Tobacco/Vape Use: Used to smoke in the past but denies current smoking per chart review Other Drug Use: Patient denies Review of Systems Review of Systems Systems Reviewed: All systems reviewed, normal except as documented Exam Vital Signs Temp Pulse Resp BP Pulse Ox O2 Del Method O2 Flow Rate 100.2 F 102 H 22 H 95/70 100 BiPAP 6 02/25/25 19:47 02/25/25 19:47 02/25/25 19:47 02/25/25 19:47 02/25/25 19:47 02/25/25 19:47 02/25/25 17:07 FiO2 30 02/25/25 19:44 Narrative Exam Physical Exam: General: Alert, no acute distress. On BiPAP with difficulty speaking. Skin: Warm, dry, intact. Head: Normocephalic, atraumatic. Eye: Normal conjunctiva, PERRL. Throat: Oral mucosa dry. No obvious lesions in oropharynx. Cardiovascular: Regular rate and irregular rhythm, no murmur, +S1/S2. Respiratory: Lungs are clear to auscultation, respirations unlabored, no crackles, no wheezing. Gastrointestinal: Soft, nontender, non-distended. No guarding or rebound tenderness. Extremities: No edema, no cyanosis, no clubbing. 2+ radial pulse bilaterally, 2+ pedal pulse bilaterally. Neuro: No focal deficits observed. Poorly conversant, moving all extremities, resting tremor present in hands bilaterally. No overt cerebellar signs/incoordination. Psychiatric: Cooperative, appropriate affect. Results: Labs 02/26/25 04:35 02/26/25 04:35 Labs: Short CBC 02/25/25 Range/Units 17:10 WBC 7.7 (3.8-10.6) Thou/mm3 Hgb 10.6 L (13.5-16.0) g/dL Hct 33.7 L (41.0-53.0) % Plt Count 198 (140-440) Thou/mm3 BMP 02/25/25 17:10 Sodium 137 Potassium 4.4 Chloride 103 Carbon Dioxide 25.8 BUN 18 Creatinine 0.8 Glucose 109 H Calcium 9.7 Cardiac Enzymes 02/25/25 Range/Units 17:10 Troponin I < 0.020 (0.0-0.045) ng/mL Liver Function 02/25/25 Range/Units 17:10 Total Bilirubin 1.1 (0.3-1.2) mg/dL AST 20 (0-34) U/L ALT 19 (10-49) U/L Alkaline Phosphatase 79 (46-116) U/L Albumin 3.7 (3.4-4.8) gm/dL Urine 02/25/25 Range/Units 19:05 Urine Color Yellow (Lt Yel-Yel) Urine Clarity Clear (Clear/Hazy) Urine pH 7.0 (5.0-7.0) Ur Specific [place] 1.016 (1.001-1.035) Urine Protein 1+ A (Neg - Trace) Urine Glucose (UA) Negative (Negative) ABG Interpretation ABG results: 02/25/25 20:17 VBG pH 7.47 VBG pCO2 36 VBG pO2 40 VBG Base Excess 3 Quality Measures Quality Measures sepsis Current suspected stage: sepsis Possible source: pulmonary Blood cultures ordered: completed in ED Antibiotic ordered: Yes Advance care planning discussed with:: patient Medications Home Medications and Allergies Home Medications ?Medication ?Instructions ?Recorded ?Confirmed ?Type carbidopa ER 50 mg-levodopa 200 mg 1 tab PO TID 02/26/25 History tablet,extended release losartan 50 mg tablet 50 mg PO QDAY 01/07/2502/26 History rivaroxaban 20 mg tablet (Xarelto) 20 mg PO QDAY 01/0702/26/25 History furosemide 20 mg tablet (Lasix) 20 mg PO Q12H 02/26/25 02/26/25 History ipratropium 0.5 mg-albuterol 3 mg 3 ml inhalation Q6H PRN shortness 02/26/25 02/26/25 History (2.5 mg base)/3 mL nebulization of breath soln metoprolol succinate 25 mg 25 mg PO DAILY 02/26/25 History tablet,extended release 24 hr Allergies Allergy/AdvReac Type Severity Reaction Status Date / Time No Known Allergies Allergy Verified 02/25/25 17:18 Visit Medications Acetaminophen (Acetaminophen 325 Mg Tablet) 650 mg PO Q6H PRN PRN Reason: Fever >101.5 or pain 1-3 Stop: 03/27/25 20:08 Albuterol/Ipratropium (Albuterol/Ipratropium (Duoneb) Rt Licha 3 Ml Nebu) 3 ml INH [id number] NATHALY Stop: 03/28/25 06:59 Albuterol/Ipratropium (Albuterol/Ipratropium (Duoneb) Rt Licha 3 Ml Nebu) 3 ml INH Q4HR PRN PRN Reason: SHORTNESS OF BREATH OR WHEEZE Stop: 03/27/25 20:15 Ceftriaxone Sodium/Dextrose (Rocephin/D5w 1gm Iv Premix) 1 gm in 50 mls @ 100 mls/hr IV QDAY NATHALY Stop: 03/05/25 08:59 Azithromycin 500 mg/ Sodium (Chloride) 250 mls @ 250 mls/hr IV QDAY [facility] Stop: 02/27/25 09:59 Metoprolol Succinate (Metoprolol Succinate Xl 25 Mg Tabcr) 25 mg PO QDAY NATHALY Stop: 03/28/25 08:59 Ondansetron HCl (Ondansetron Inj 2 Mg/Ml Inj 2 Ml) 4 mg IVP Q6H PRN; Protocol PRN Reason: NAUSEA OR VOMITING Stop: 03/27/25 20:08 Rivaroxaban (Rivaroxaban 10 Mg Tablet) 20 mg PO QDAY NATHALY Stop: 03/28/25 08:59 Sennosides (Senna/Docusate Sod 1 Tab Tablet) 1 tab PO QDAY PRN; Protocol PRN Reason: CONSTIPATION Stop: 03/27/25 20:15 Sodium Chloride (Sodium Chloride Rt Licha 0.9% 3 Ml Nebu) 3 ml INH PRN PRN PRN Reason: SOLN Stop: 03/27/25 19:04 Last Admin: 02/25/25 19:34 Dose: 3 ml Discontinued Medications Albuterol (Albuterol Rt 2.5 Mg/0.5 Ml Nebu) 10 mg INH X1 ONE Stop: 02/25/25 19:06 Last Admin: 02/25/25 19:33 Dose: 10 mg Furosemide (Furosemide Inj 10 Mg/Ml 4ml Vial) 40 mg IVP X1 ONE Stop: 02/25/25 17:08 Last Admin: 02/25/25 17:53 Dose: 40 mg Acetaminophen (Ofirmev Inj) 1,000 mg in 100 mls @ 250 mls/hr IV X1 ONE Stop: 02/25/25 17:38 Last Infusion: 02/25/25 18:22 Dose: Infused Ceftriaxone Sodium/Dextrose (Rocephin/D5w 1gm Iv Premix) 1 gm in 50 mls @ 100 mls/hr IV STAT STA Stop: 02/25/25 19:08 Azithromycin 500 mg/ Sodium (Chloride) 250 mls @ 250 mls/hr IV STAT STA Stop: 02/25/25 19:38 Ipratropium Venus (Ipratropium Rt 0.5 Mg/ 2.5 Ml Nebu) 1 mg INH X1 ONE Stop: 02/25/25 19:06 Last Admin: 02/25/25 19:33 Dose: 1 mg Methylprednisolone Sodium Succinate (Methylprednisolone Sod Succ 62.5 Mg/Ml 2ml Vial) 125 mg IVP X1 ONE Stop: 02/25/25 19:06 Assessment & Plan Plan This patient is an 84-year-old male with a history of Parkinson's disease, atrial fibrillation (on Xarelto), HFpEF (55 to 60%, 01/03/2025), hypertension, and pulmonary hypertension who presented to [facility] ED from SNF on 02/25 for shortness of breath and increased work of breathing. Patient was admitted for management of acute hypoxic respiratory failure secondary to pneumonia. #Acute hypoxic respiratory failure 2/2 #Left base Pneumonia Patient noted to have shortness of breath and work of breathing. Found to have O2 saturation of 86% at SNF. EMS put patient on OxyMask, and was found to be saturating well initially in ED, however still had increased work of breathing with respiratory rate in the 30s. Patient was put on BiPAP with improvement of his respiratory rate and work of breathing. This is likely secondary to left base pneumonia found initial chest x-ray. Diagnostic: WBC 7.7, does appear to be elevated from the patient's baseline of 3-4, possibly hemoconcentration versus sign of infection Lactic acid 3.2, likely secondary to hypoxemia as repeat lactic acid noted to be 2.4 on BiPAP Procalcitonin elevated at 1.01 on admission Patient noted to have Tmax of 102.8 ?F in ED Chest x-ray on 02/25 shows significant pneumonia left base PSI/port score 136 points, risk class V, 27 to 29.2% mortality with hospitalization recommended based on risk Cocci IgG and IgM negative on 01/10/25 Blood cultures collected 02/25, pending Urine culture collected 02/25, pending Treatment: Continue BiPAP, wean down as tolerated Ceftriaxone 1 g daily (02/25?) Azithromycin 500 mg daily (02/25 - 02/27) DuoNebs every 12 hours with additional DuoNebs every 4 hours as needed #Atrial fibrillation, on Xarelto #HFpEF, 55 to 60% 01/03/2025 #Severe pulmonary hypertension Patient noted to have a history of atrial fibrillation for which she takes Xarelto for. This is likely why the patient has elevated INR. The patient does take metoprolol at home for rate control. Additionally, the patient has a history of HFpEF with most recent echocardiogram showing 55 to 60% LVEF and severe pulmonary hypertension. Diagnostic: Echocardiogram on 01/07/2025 shows grade 2 diastolic dysfunction, LVEF 55 to 60%, estimated PASP 54 mmHg with severe pulmonary hypertension, moderate aortic valve sclerosis with mild stenosis and moderate regurg, mild mitral valve stenosis and severe regurgitation, and severe biatrial enlargement BNP 483 on admission, decreased from 603 on 01/09/2025 Treatment: Resumed home Xarelto 20 mg daily Resumed home metoprolol succinate 25 mg daily, hold if SBP less than 100 or heart rate less than 60 Will hold off on home Lasix 40 mg for now as patient does appear very dry on admission Acute potassium above 4 and magnesium above 2 Cardiac diet modification #Parkinson's disease Per patient history and patient does take carbidopa levodopa 50-200 mg every 8 hours. Resting tremor was identified on examination on admission. Treatment: Resumed home carbidopa levodopa 50-1200 mg every 8 hours #Anemia, normocytic #Iron deficiency anemia Patient presented with low hemoglobin in ED. Patient did have low hemoglobin previously during last hospital admission, at 1 point reaching 7.0, which prompted blood transfusion with 2 units of PRBCs, however hemoglobin only increased to 7.6. This prompted iron deficiency workup, which suggested iron deficiency anemia, so patient was treated with IV iron. Diagnostic: Hemoglobin on admission 10.6, unsure if this is secondary to IV iron infusion or hemoconcentration MCV on admission 91, but was previously low in the 70s during last admission Absolute reticulocyte count on 01/08/2025 was elevated at 75.8 with immature reticulocyte fraction elevated at 34.6% Iron panel on 12/30/2024 significant for low iron at 21 and low iron saturation at 5% Treatment: Continue to monitor with daily CBC Patient to follow-up outpatient for further workup #History of hypertension, primary Patient does have a history of hypertension that he takes losartan for. Patient noted to have a blood pressure of 95/70 on admission. Treatment: Consider resuming home losartan once blood pressure shown to be more elevated DVT Prophylaxis: Xarelto GI Prophylaxis: N/A Bowel: Sennokot PRN Diet: Cardiac diet Padilla: N/A Lines: PIV Antibiotics: Ceftriaxone & Azithromycin Code Status: FULL Reason for Hospitalization: AHRF Other Barriers to Discharge: Blood cultures Patient plan of care was discussed with the senior resident Dr. Byrd (PGY-2) and attending physician Dr. Rebecca Mercado, PGY1 Attending Provider Attestation/Addendum I have seen and examined the patient. I was physically present for the betancourt portions of the services provided including history, physical exam, diagnosis, treatment plans and orders. I agree with assessment and plan of care as documented by residents. After examination of the patient and review of the clinical data I feel that this patient needs admission to the hospital for further treatment/evaluation. Even though this this note was carefully revised there may still be minor errors in car chaser due to voice recognition software. Tram Fernandez MD
[2025-02-25 20:31] LABS: Lactate (Lactic Acid) 2.4 mMol/L (0.4-2.0)
[2025-02-25 20:43] LABS: Reflex Lactate? Y
[2025-02-25] MEDS: cefTRIAXone/D5w 1gm IV premix 1 GM/50 ML BAG IV (20:43)
[2025-02-25] MEDS: MethylPREDNISolone SOD SUCC 62.5 MG/ML 2ML VIAL 125 MG IVP (20:44)
[2025-02-25] MEDS: AZITHROMYCIN INJ 500 MG in SODIUM CHLORIDE 0.9% 250 ML 250 ML 250 MG IV (20:52)
--- NOTE | 2025-02-25 21:07 | PC.RT ---
Pt removed from Bipap and placed on Oxymask at this time. Pt in no respiratory distress. We will continue to monitor Pt for respiratory deterioration
--- NOTE | 2025-02-25 22:23 | PC.NURSE ---
Isabela nurse assigned to Pt at [facility] called for status of Pt, update provided
[2025-02-25 23:26] LABS: Reflex Lactate? Y
[2025-02-25 23:40] LABS: Lactic Acid, 3 HR 4.6 mMol/L (0.4-2.0)
[2025-02-26] VITALS (14 sets, daily range): BP systolic 101–115; BP diastolic 57–78; PULSE 60–105; RESP 19–26; TEMP 36.2–36.8; O2SAT 93–100; BMI 20.6
[2025-02-26] MEDS: RINGERS LACTATED 1000 ML 1,000 ML 999 ML IV (00:08)
--- NOTE | 2025-02-26 00:31 | PC.NURSE ---
Pt recieved a bed on floor I called report and Nurse answered stated she was on her lunch. I asked is she had someone coving her I can also do a bedside report, she stated she will call me back. Pending call back for instruction
--- NOTE | 2025-02-26 00:44 | W.PC.EDHO ---
Active Medications Generic Name Dose Route Start Last Admin Trade Name Freq PRN Reason Stop Dose Admin Acetaminophen 650 mg 02/25/25 20:09 Acetaminophen 325 Mg Tablet PO 03/27/25 20:08 Q6H PRN Fever >101.5 or pain 1-3 Albuterol/Ipratropium 3 ml 02/26/25 07:00 Albuterol/Ipratropium (Duoneb) Rt Licha 3 Ml Nebu INH 03/28/25 06:59 [id number] NATHALY Albuterol/Ipratropium 3 ml 02/25/25 20:16 Albuterol/Ipratropium (Duoneb) Rt Licha 3 Ml Nebu INH 03/27/25 20:15 Q4HR PRN SHORTNESS OF BREATH OR WHEEZE Carbidopa/Levodopa 1 tab 02/26/25 09:00 Carbidopa/Levodopa Cr 50/200 Tabcr PO 03/28/25 08:59 Q8H [facility] Ceftriaxone Sodium/Dextrose 1 gm in 50 mls @ 100 mls/hr 02/26/25 09:00 Rocephin/D5w 1gm Iv Premix IV 03/05/25 08:59 QDAY NATHALY Azithromycin 500 mg/ Sodium 250 mls @ 250 mls/hr 02/26/25 09:00 Chloride IV 02/27/25 09:59 QDAY [facility] Lactated Ringer's 1,000 mls @ 999 mls/hr 02/26/25 00:00 02/26/25 00:08 Lactated Ringers IV 02/26/25 01:00 999 mls/hr .Q1H1M ONE Administration Metoprolol Succinate 25 mg 02/26/25 09:00 Metoprolol Succinate Xl 25 Mg Tabcr PO 03/28/25 08:59 QDAY NATHALY Ondansetron HCl 4 mg 02/25/25 20:09 Ondansetron Inj 2 Mg/Ml Inj 2 Ml IVP 03/27/25 20:08 Q6H PRN NAUSEA OR VOMITING Protocol Rivaroxaban 20 mg 02/26/25 09:00 Rivaroxaban 10 Mg Tablet PO 03/28/25 08:59 QDAY NATHALY Sennosides 1 tab 02/25/25 20:16 Senna/Docusate Sod 1 Tab Tablet PO 03/27/25 20:15 QDAY PRN CONSTIPATION Protocol Sodium Chloride 3 ml 02/25/25 19:05 02/25/25 19:34 Sodium Chloride Rt Licha 0.9% 3 Ml Nebu INH 03/27/25 19:04 3 ml PRN PRN Administration SOLN Pain Pain Intensity 0 Pain Intensity 10 Pain Scale Used Lima-Grijalva (Faces) Pain Scale Used [place]-Grijalva (Faces) Oxygen Administration Pulse Oximetry (%) 100 Pulse Oximetry (%) 100 Pulse Oximetry (%) 100 Pulse Oximetry (%) 100 Pulse Oximetry (%) 97 Pulse Oximetry (%) 100 Pulse Oximetry (%) 100 Pulse Oximetry (%) 100 Pulse Oximetry (%) 100 Pulse Oximetry (%) 100 Pulse Oximetry (%) 96 Pulse Oximetry (%) 98 Oxygen Delivery Method Oxy Mask Oxygen Flow Rate 10 Oxygen Flow Rate 6 Oxygen Flow Rate 7 Oxygen Flow Rate 7 Oxygen Flow Rate 7 Oxygen Flow Rate 8 Oxygen Flow Rate 6 Fraction of Inspired Oxygen 30 Fraction of Inspired Oxygen 30 Fraction of Inspired Oxygen 30 Fraction of Inspired Oxygen 30 Cardiac Monitoring EKG Method 6 Leads EKG Rhythm Atrial Fibrillation EKG Rhythm Atrial Fibrillation,RVR
[2025-02-26 05:59] LABS: Basophils # (Auto) 0.0 Thou/mm3 (0.0-0.2); Basophils % (Auto) 0 % (0-2.5); Eosinophils # (Auto) 0.0 Thou/mm3 (0.0-0.5); Eosinophils % (Auto) 0 % (0-10); Hematocrit 30.6 % (41.0-53.0); Hemoglobin 9.7 g/dL (13.5-16.0); Immature Granulocytes Auto 0.02 Thou/mm3 (0.00-0.00); Lymphocytes # (Auto) 0.1 Thou/mm3 (1.0-4.8); Lymphocytes % (Auto) 2 % (10-50); Mean Corpuscular HGB Conc 31.7 g/dl (31.0-37.0); Mean Corpuscular Hemoglobin 28.9 pg (25.0-35.0); Mean Corpuscular Volume 91 fL (80-100); Monocytes # (Auto) 0.1 Thou/mm3 (0.0-0.8); Monocytes % (Auto) 2 % (0-12); Neutrophils # (Auto) 5.8 Thou/mm3 (1.8-7.7); Neutrophils % (Auto) 96 % (37-80); Nucleated Red Blood Cell # 0.00 Thou/mm3 (0.00-0.00); Nucleated Red Blood Cell % 0 /100 WBC (0); Platelet Count 185 Thou/mm3 (140-440); Red Blood Count 3.36 Miln/mm3 (4.50-5.90); White Blood Count 6.0 Thou/mm3 (3.8-10.6)
[2025-02-26 06:03] LABS: Albumin, Serum 3.7 gm/dL (3.4-4.8); Anion Gap 15 (7-16); BUN/Creatinine Ratio 24 Ratio (12-20); Blood Urea Nitrogen 19 mg/dL (9-23); Calcium 9.4 mg/dL (8.3-10.6); Calcium (Corrected) 9.6 mg/dL (8.5-10.1); Carbon Dioxide 24.3 mMol/L (20.0-31.0); Chloride 103 mMol/L (98-107); Creatinine (Component) 0.8 mg/dL (0.6-1.3); Estimated Creatinine Clearance 57.6 mL/min (>60); Glucose 149 mg/dL (74-106); Magnesium 2.2 mg/dL (1.6-2.6); Osmolality,Calculated 288 (275-295); Phosphorous 3.9 mg/dL (2.4-5.1); Potassium 4.8 mMol/L (3.4-5.1); Sodium 142 mMol/L (136-145); eGFR > 60 See Note
[2025-02-26] MEDS: SODIUM CHLORIDE 0.9% 1000 ML 1,000 ML 125 ML IV ×2 (06:36→07:30)
[2025-02-26] MEDS: ALBUTEROL/IPRATROPIUM (Duoneb) RT SOL 3 ML NEBU INH ×5 (07:05→22:25)
[2025-02-26 07:09] LABS: Lactate (Lactic Acid) 4.6 mMol/L (0.4-2.0)
[2025-02-26 08:14] LABS: Beta Hydroxybutyrate 0.1 mmol/L (<0.6)
[2025-02-26 08:35] LABS: Creatine Kinase 25 U/L (34-171)
[2025-02-26] MEDS: RINGERS LACTATED 1000 ML 500 ML 999 ML IV (09:03)
[2025-02-26] MEDS: cefTRIAXone/D5w 1gm IV premix 1 GM/50 ML BAG IV (09:04)
--- NOTE | 2025-02-26 09:13 | PC.SS ---
Follow up note: On O2 and breathing treatment. Pending cultures. Pt will return to SNF upon dc.
[2025-02-26] MEDS: RIVAROXABAN 10 MG TABLET 20 MG PO (09:50)
[2025-02-26] MEDS: METOPROLOL SUCCINATE XL 25 MG TABCR PO (09:50)
[2025-02-26] MEDS: CARBIDOPA/LEVODOPA CR 50/200 TABCR 1 TAB PO ×2 (09:50→16:29)
[2025-02-26 10:02] LABS: Reflex Lactate? Y
--- NOTE | 2025-02-26 10:09 | ESPR_ITS ---
<Statement entered by Mk Barton MD - 02/26/25 16:34> I saw and examined patient personally and supervised PGY 1 resident, Dr. Bartholomew with formulating a management plan. I agree with the documentation with the exceptions as listed below. Marvin Jackson 84M pmhx significant for Parkinson's disease, atrial fibrillation (on Xarelto), HFpEF (55 to 60%, 01/03/2025), hypertension, and pulmonary hypertension who presented to [facility] ED from SNF on 02/25 for shortness of breath and increased work of breathing, admitted for acute hypoxic respiratory failure secondary to pneumonia Problem list: 1. Acute respiratory failure with hypoxia secondary to community-acquired pneumonia 2. Lactic acidosis secondary to hypoxia 3. Atrial fibrillation with RVR?resolved 4. Chronic diastolic congestive heart failure [55-60%] 5. Severe pulmonary hypertension 6. History of Parkinson's disease Patient presented from his facility for increased work of breathing and hypoxia. On admission chest x-ray showed left base consolidation consistent with pneumonia, elevated lactic acid of 4.6, WBC 7.7 and PSI/port score of 136. Currently on ceftriaxone and azithromycin IV for treatment of pneumonia and saturating 100% on 4L O2 via oxy mask. Will titrate O2 as necessary. Patient does have history of Parkinson's and impaired swallowing, speech therapy saw patient and recommended a dysphagia diet with thickened liquids. Patient's lactic acid initially elevated at 4.6 and down trended to 3.2 after 1 L IV fluid bolus. Most likely this is secondary to hypoxia and will recheck tomorrow a.m. Cocci was negative, currently pending influenza and RSV. Plan of care discussed with Attending Dr. Sreedhar Barton MD PGY 2 Disclaimer: This note was dictated by speech recognition. Minor errors in conservation planner may be present due to voice recognition software. Documentation for date of: 02/26/25 Subjective Subjective Interval history: Patient admitted overnight. Patient seen examined at bedside. In a.m. patient appeared encephalopathic responding yes to all questions however on later morning examination more alert. Endorses shortness of breath, denies chest pain, abdominal pain or urinary symptoms. Is tremulous on clinical exam likely secondary to Parkinson's. VSS, saturating 100% on OxyMask 5 L, telemetry atrial fibrillation rate 70s. Significant labs include lactic acid again uptrending to 4.6, gave 500 cc LR bolus with repeat lactic 3.1. Pending infectious workup such as cocci, flu, RSV. Continue ceftriaxone and azithromycin for left lower lobe pneumonia and breathing treatments every 4 hours. Exam Vital Signs Temp Pulse Resp BP Pulse Ox O2 Del Method O2 Flow Rate 97.3 F 70 21 H 105/68 100 Oxy Mask 5 02/26/25 08:00 02/26/25 09:50 02/26/25 08:00 02/26/25 09:50 02/26/25 08:00 02/26/25 08:00 02/26/25 08:00 FiO2 30 02/26/25 01:05 Narrative Exam GENERAL: AOx3, no acute distress, Oxymask 5L, tremulous, poorly conversant HEENT: mucous membranes dry, bilateral sclera anicteric CARDIOVASCULAR: regular rate and irregular rhythm, S1/S2 present, no murmurs appreciated PULMONARY: bilateral wheezes and coarse breath sounds ABDOMINAL: soft, non-tender, non-distended, no rebound/guarding, bowel sounds present EXTREMITIES: no peripheral edema SKIN: warm and dry, intact, no rashes NEURO: CN II-XII grossly intact, no focal deficits, alert, following commands Objective Labs 02/27/25 04:56 02/27/25 04:56 Labs: Laboratory Results - last 24 hr 02/25/25 02/25/25 02/25/25 17:05 17:10 19:05 WBC 7.7 RBC 3.69 L Hgb 10.6 L Hct 33.7 L MCV 91 MCH 28.7 MCHC 31.5 RDW Std Deviation Not Performed. Plt Count 198 Neut % (Auto) 92 H Lymph % (Auto) 6 L [place] % (Auto) 1 Eos % (Auto) 0 Baso % (Auto) 0 Neut # (Auto) 7.1 Lymph # (Auto) 0.5 L [place] # (Auto) 0.1 Eos # (Auto) 0.0 Baso # (Auto) 0.0 Immature Gran # (Auto) 0.03 H Absolute Nucleated RBC 0.00 Immature Gran % 0 Nucleated RBC % 0 PT 14.9 H INR 1.4 H APTT 43.2 H VBG pH VBG pCO2 VBG pO2 VBG O2 Sat (Laura) VBG Base Excess Sodium 137 Potassium 4.4 Chloride 103 Carbon Dioxide 25.8 Anion Gap 8 BUN 18 Creatinine 0.8 Estim Creat Clear Calc 55.3 L eGFR > 60 BUN/Creatinine Ratio 23 H Glucose 109 H Calculated Osmolality 276 Lactic Acid 3.2 H Calcium 9.7 Corrected Calcium 9.9 Phosphorus Magnesium 2.3 Total Bilirubin 1.1 AST 20 ALT 19 Alkaline Phosphatase 79 Total Creatine Kinase Troponin I < 0.020 B-Natriuretic Peptide 483 H* Total Protein 6.5 Albumin 3.7 Globulin 2.8 Albumin/Globulin Ratio 1.3 Lipase 21 Beta-Hydroxybutyrate/Acetoacetate Procalcitonin 1.01 H Ur Collection Type Clean Catch Urine Color Yellow Urine Clarity Clear Urine pH 7.0 Ur Specific [place] 1.016 Urine Protein 1+ A Urine Glucose (UA) Negative Urine Ketones Negative Urine Blood Negative Urine Nitrite Negative Urine Bilirubin Negative Urine Urobilinogen (Auto) Negative Ur Leukocyte Esterase Negative Urine RBC 1 Urine WBC < 1 Ur Squamous Epith Cells 0 Amorphous Crystals Present A Urine Bacteria Rare 02/25/25 02/25/25 02/26/25 20:17 23:35 04:35 WBC 6.0 RBC 3.36 L Hgb 9.7 L Hct 30.6 L MCV 91 MCH 28.9 MCHC 31.7 RDW Std Deviation Not Performed. Plt Count 185 Neut % (Auto) 96 H Lymph % (Auto) 2 L [place] % (Auto) 2 Eos % (Auto) 0 Baso % (Auto) 0 Neut # (Auto) 5.8 Lymph # (Auto) 0.1 L [place] # (Auto) 0.1 Eos # (Auto) 0.0 Baso # (Auto) 0.0 Immature Gran # (Auto) 0.02 H Absolute Nucleated RBC 0.00 Immature Gran % 0 Nucleated RBC % 0 PT INR APTT VBG pH 7.47 VBG pCO2 36 VBG pO2 40 VBG O2 Sat (Laura) 72 L VBG Base Excess 3 Sodium 142 Potassium 4.8 Chloride 103 Carbon Dioxide 24.3 Anion Gap 15 BUN 19 Creatinine 0.8 Estim Creat Clear Calc 57.6 L eGFR > 60 BUN/Creatinine Ratio 24 H Glucose 149 H Calculated Osmolality 288 Lactic Acid 2.4 H 4.6 H* Calcium 9.4 Corrected Calcium 9.6 Phosphorus 3.9 Magnesium 2.2 Total Bilirubin AST ALT Alkaline Phosphatase Total Creatine Kinase Troponin I B-Natriuretic Peptide Total Protein Albumin 3.7 Globulin Albumin/Globulin Ratio Lipase Beta-Hydroxybutyrate/Acetoacetate Procalcitonin Ur Collection Type Urine Color Urine Clarity Urine pH Ur Specific [place] Urine Protein Urine Glucose (UA) Urine Ketones Urine Blood Urine Nitrite Urine Bilirubin Urine Urobilinogen (Auto) Ur Leukocyte Esterase Urine RBC Urine WBC Ur Squamous Epith Cells Amorphous Crystals Urine Bacteria 02/26/25 06:35 WBC RBC Hgb Hct MCV MCH MCHC RDW Std Deviation Plt Count Neut % (Auto) Lymph % (Auto) [place] % (Auto) Eos % (Auto) Baso % (Auto) Neut # (Auto) Lymph # (Auto) [place] # (Auto) Eos # (Auto) Baso # (Auto) Immature Gran # (Auto) Absolute Nucleated RBC Immature Gran % Nucleated RBC % PT INR APTT VBG pH VBG pCO2 VBG pO2 VBG O2 Sat (Laura) VBG Base Excess Sodium Potassium Chloride Carbon Dioxide Anion Gap BUN Creatinine Estim Creat Clear Calc eGFR BUN/Creatinine Ratio Glucose Calculated Osmolality Lactic Acid 4.6 H* Calcium Corrected Calcium Phosphorus Magnesium Total Bilirubin AST ALT Alkaline Phosphatase Total Creatine Kinase 25 L Troponin I B-Natriuretic Peptide Total Protein Albumin Globulin Albumin/Globulin Ratio Lipase Beta-Hydroxybutyrate/Acetoacetate 0.1 Procalcitonin Ur Collection Type Urine Color Urine Clarity Urine pH Ur Specific [place] Urine Protein Urine Glucose (UA) Urine Ketones Urine Blood Urine Nitrite Urine Bilirubin Urine Urobilinogen (Auto) Ur Leukocyte Esterase Urine RBC Urine WBC Ur Squamous Epith Cells Amorphous Crystals Urine Bacteria ABG Interpretation ABG results: 02/25/25 20:17 VBG pH 7.47 VBG pCO2 36 VBG pO2 40 VBG Base Excess 3 Quality Measures Quality Measures sepsis Current suspected stage: ruled out (does not meet criteria) Possible source: pulmonary Blood cultures ordered: completed in ED Antibiotic ordered: Yes Advance care planning discussed with:: patient Assessment & Plan Assessment Current Active Medications: Generic Name Dose Route Start Last Admin Trade Name Freq PRN Reason Stop Dose Admin Acetaminophen 650 mg 02/25/25 20:09 Acetaminophen 325 Mg Tablet PO 03/27/25 20:08 Q6H PRN Fever >101.5 or pain 1-3 Albuterol/Ipratropium 3 ml 02/25/25 20:16 Albuterol/Ipratropium (Duoneb) Rt Licha 3 Ml Nebu INH 03/27/25 20:15 Q4HR PRN SHORTNESS OF BREATH OR WHEEZE Albuterol/Ipratropium 3 ml 02/26/25 07:15 Albuterol/Ipratropium (Duoneb) Rt Licha 3 Ml Nebu INH 03/28/25 07:14 Q4HRRT NATHALY Carbidopa/Levodopa 1 tab 02/26/25 09:00 02/26/25 09:50 Carbidopa/Levodopa Cr 50/200 Tabcr PO 03/28/25 08:59 1 tab Q8H NATHALY Administration Ceftriaxone Sodium/Dextrose 1 gm in 50 mls @ 100 mls/hr 02/26/25 09:00 02/26/25 09:04 Rocephin/D5w 1gm Iv Premix IV 03/05/25 08:59 100 mls/hr QDAY NATHALY Administration Azithromycin 500 mg/ Sodium 250 mls @ 250 mls/hr 02/26/25 21:00 Chloride IV 02/27/25 21:59 QPM NATHALY Sodium Chloride 1,000 mls @ 125 mls/hr 02/26/25 07:07 Ns IV 02/26/25 15:06 .Q8H ONE Metoprolol Succinate 25 mg 02/26/25 09:00 02/26/25 09:50 Metoprolol Succinate Xl 25 Mg Tabcr PO 03/28/25 08:59 25 mg QDAY NATHALY Administration Ondansetron HCl 4 mg 02/25/25 20:09 Ondansetron Inj 2 Mg/Ml Inj 2 Ml IVP 03/27/25 20:08 Q6H PRN NAUSEA OR VOMITING Protocol Rivaroxaban 20 mg 02/26/25 09:00 02/26/25 09:50 Rivaroxaban 10 Mg Tablet PO 03/28/25 08:59 20 mg QDAY NATHALY Administration Sennosides 1 tab 02/25/25 20:16 Senna/Docusate Sod 1 Tab Tablet PO 03/27/25 20:15 QDAY PRN CONSTIPATION Protocol Sodium Chloride 3 ml 02/25/25 19:05 02/25/25 19:34 Sodium Chloride Rt Licha 0.9% 3 Ml Nebu INH 03/27/25 19:04 3 ml PRN PRN Administration SOLN Sodium Chloride 4 ml 02/26/25 07:20 Sodium Cl Rt Licha 3% 4 Ml Nebu (Non-Formulary) INH 03/28/25 06:59 Q4HRRT PRN congestion, cough Plan Marvin Jackson 84M pmhx significant for Parkinson's disease, atrial fibrillation (on Xarelto), HFpEF (55 to 60%, 01/03/2025), hypertension, and pulmonary hypertension who presented to [facility] ED from SNF on 02/25 for shortness of breath and increased work of breathing, admitted for acute hypoxic respiratory failure secondary to pneumonia. #Acute hypoxic respiratory failure 2/2 #Left base Pneumonia Patient noted to have shortness of breath and work of breathing at SNF with O2 sat 86% at SNF, improved with Oxymask in ambulance. In ED, patient febrile tachycardic and tachypnic. Put on BiPAP with improvement. WBC 7.7, lactic acid 3.2->2.4->4.6->3.1, procal 1.01. CXR significant pneumonia left base. PSI/port score 136 points, risk class V, 27 to 29.2% mortality with hospitalization recommended based on risk Cocci IgG and IgM negative on 01/10/25 Blood cultures collected 02/25, pending Urine culture collected 02/25, pending Plan: - Ceftriaxone 1g QD and Azithromycin 500 mg QD (02/25- - Duoneb q4h scheduled and q2h prn - Supplemental O2 as needed and downtitrate as tolerated - F/u BCx, UCx, cocci, RSV, flu rapid #Lactic acidosis, improving Lactic acid 3.2->2.4->4.6->3.1 following small fluid boluses in between iso HFpEF. Likely 2/2 respiratory failure. CK and BHB wnl. Plan: - Fluid boluses as tolerated #Atrial fibrillation RVR, resolved #Hx atrial fibrillation, on Xarelto #HFpEF, 55 to 60% 01/03/2025 #Severe pulmonary hypertension Presented in RVR until 2200 02/25, resolved without rhythm or rate control interventions in ED. At home on Xarelto, contributing to elevated INR, and metoprolol XL 25 mg QD. BNP 482 dec from 603 on previous admission. Echocardiogram on 01/07/2025 shows grade 2 diastolic dysfunction, LVEF 55 to 60%, estimated PASP 54 mmHg with severe pulmonary hypertension, moderate aortic valve sclerosis with mild stenosis and moderate regurg, mild mitral valve stenosis and severe regurgitation, and severe biatrial enlargement Plan: - Resumed home Xarelto 20 mg daily and metoprolol XL 25 mg QD - Hold home Lasix 40 mg iso volume depletion on clinical exam - Keep K>4 and Mg>2 at all times #Parkinson's disease Per patient history and patient does take carbidopa levodopa 50-200 mg every 8 hours. Resting tremor was identified on examination on admission. Plan: - Resumed home carbidopa levodopa 50-1200 mg every 8 hours #Anemia, normocytic #Iron deficiency anemia, improved Has hx however Hgb on this admission 10.6 improved since last admission 7.9. Absolute reticulocyte count on 01/08/2025 was elevated at 75.8 with immature reticulocyte fraction elevated at 34.6% Iron panel on 12/30/2024 significant for low iron at 21 and low iron saturation at 5% Plan: - CTM CBC - Patient to follow-up outpatient for further workup #History of hypertension, primary Patient does have a history of hypertension that he takes losartan for. Patient noted to have a blood pressure of 95/70 on admission. Plan: - Hold home losartan iso soft BP Hospital management: Lines: PIV Diet: Cardiac, dysphagia 2 Bowel: Senna prn GI prophylaxis: not indicated DVT prophylaxis: Xarelto Disposition: tele, IV abx, breathing txs, pending infectious workup CODE STATUS: FULL CODE Plan of care discussed with attending Dr. Eli, and PGY-2 Dr. Barton. Ani Bartholomew DO PGY-1 Internal Medicine Attending Provider Attestation/Addendum I have discussed and was present for the essential components of the history, physical examination, diagnosis, and treatment plan with the resident. I agree with the patient's care as documented by the resident and amended herein by me. Jhon Eli DO. Although this document has been carefully reviewed, there may still be some phonetic and other typographical errors. These errors are purely grammatical due to imperfections in the software program and should not be construed in any way to compromise the substance of the patient's medical care during this visit.
[2025-02-26 11:09] LABS: Lactate (Lactic Acid) 3.1 mMol/L (0.4-2.0)
[2025-02-26 13:56] LABS: Lactate (Lactic Acid) 3.2 mMol/L (0.4-2.0)
[2025-02-26 14:07] LABS: Reflex Lactate? Y
[2025-02-26 14:18] LABS: Cocci Serology, IgM Negative (Negative)
[2025-02-26 16:54] LABS: Reflex Lactate? Y
[2025-02-26 17:40] LABS: Lactic Acid, 3 HR 2.6 mMol/L (0.4-2.0)
[2025-02-26 19:20] LABS: Respiratory Syncytial Virus Ag Negative (Negative)
[2025-02-26 19:21] LABS: Influenza A Ag Negative; Influenza B Ag Negative
[2025-02-26] MEDS: AZITHROMYCIN INJ 500 MG in SODIUM CHLORIDE 0.9% 250 ML 250 ML 250 MG IV (20:50)
[2025-02-27] VITALS (13 sets, daily range): BP systolic 109–123; BP diastolic 67–87; PULSE 74–112; RESP 17–28; TEMP 36.6–37.3; O2SAT 92–99; BMI 21.2
[2025-02-27] MEDS: CARBIDOPA/LEVODOPA CR 50/200 TABCR 1 TAB PO ×3 (02:25→18:23)
[2025-02-27] MEDS: ALBUTEROL/IPRATROPIUM (Duoneb) RT SOL 3 ML NEBU INH ×6 (02:38→22:48)
[2025-02-27 05:24] LABS: Lactate (Lactic Acid) 1.7 mMol/L (0.4-2.0)
[2025-02-27 05:40] LABS: Basophils # (Auto) 0.0 Thou/mm3 (0.0-0.2); Basophils % (Auto) 0 % (0-2.5); Eosinophils # (Auto) 0.0 Thou/mm3 (0.0-0.5); Eosinophils % (Auto) 0 % (0-10); Hematocrit 29.0 % (41.0-53.0); Hemoglobin 9.6 g/dL (13.5-16.0); Immature Granulocytes Auto 0.04 Thou/mm3 (0.00-0.00); Lymphocytes # (Auto) 0.1 Thou/mm3 (1.0-4.8); Lymphocytes % (Auto) 2 % (10-50); Mean Corpuscular HGB Conc 33.1 g/dl (31.0-37.0); Mean Corpuscular Hemoglobin 29.4 pg (25.0-35.0); Mean Corpuscular Volume 89 fL (80-100); Monocytes # (Auto) 0.2 Thou/mm3 (0.0-0.8); Monocytes % (Auto) 3 % (0-12); Neutrophils # (Auto) 7.2 Thou/mm3 (1.8-7.7); Neutrophils % (Auto) 95 % (37-80); Nucleated Red Blood Cell # 0.00 Thou/mm3 (0.00-0.00); Nucleated Red Blood Cell % 0 /100 WBC (0); Platelet Count 208 Thou/mm3 (140-440); Red Blood Count 3.26 Miln/mm3 (4.50-5.90); White Blood Count 7.6 Thou/mm3 (3.8-10.6)
[2025-02-27 06:51] LABS: Alanine Aminotransferase 8 U/L (10-49); Albumin, Serum 3.7 gm/dL (3.4-4.8); Albumin/Globulin Ratio 1.5 (1.2-2.2); Alkaline Phosphatase 69 U/L (46-116); Anion Gap 9 (7-16); Aspartate Amino Transferase 18 U/L (0-34); BUN/Creatinine Ratio 31 Ratio (12-20); Bilirubin,Total 0.8 mg/dL (0.3-1.2); Blood Urea Nitrogen 22 mg/dL (9-23); Calcium 9.5 mg/dL (8.3-10.6); Calcium (Corrected) 9.7 mg/dL (8.5-10.1); Carbon Dioxide 26.6 mMol/L (20.0-31.0); Chloride 105 mMol/L (98-107); Creatinine (Component) 0.7 mg/dL (0.6-1.3); Estimated Creatinine Clearance 67.9 mL/min (>60); Globulin 2.5 gm/dL (2.3-3.5); Glucose 119 mg/dL (74-106); Magnesium 2.0 mg/dL (1.6-2.6); Osmolality,Calculated 285 (275-295); Potassium 4.4 mMol/L (3.4-5.1); Sodium 141 mMol/L (136-145); Total Protein 6.2 gm/dL (5.7-8.2); eGFR > 60 See Note
[2025-02-27] MEDS: cefTRIAXone/D5w 1gm IV premix 1 GM/50 ML BAG IV (08:44)
[2025-02-27] MEDS: METOPROLOL SUCCINATE XL 25 MG TABCR PO (08:44)
[2025-02-27] MEDS: RIVAROXABAN 10 MG TABLET 20 MG PO (08:44)
[2025-02-27 11:51] LABS: Cocci Serology, IgG Negative (Negative)
--- NOTE | 2025-02-27 12:40 | ESPR_ITS ---
<Statement entered by Mk Barton MD - 02/27/25 14:14> I saw and examined patient personally and supervised PGY 1 resident, Dr. Bartholomew with formulating a management plan. I agree with the documentation with the exceptions as listed below. Patient's O2 requirements were weaned to 2L O2 via nasal cannula and is saturating between 94-96%. Speech therapy assessed the patient and found that he has some swallowing difficulties and recommended XR videofluoroscopic swallow study. This was scheduled for tomorrow. Blood cultures were negative x 24 hours preliminary. Physical therapy evaluation is pending for patient to be reaccepted to his SNF when fit for discharge. Anticipate discharge within next 24 to 48 hours. Plan of care discussed with Attending Dr. Rebecca Barton MD PGY 2 Disclaimer: This note was dictated by speech recognition. Minor errors in information systems consultant may be present due to voice recognition software. Documentation for date of: 02/27/25 Subjective Subjective Interval history: No acute overnight events. Patient seen and examined at bedside. Patient appears much more alert today. VSS. On telemetry, patient is atrial fibrillation rate high 80s to 120 max. Saturating 96% on 2 L. Labs stable, lactic acid eventually down trended. Flu, cocci IgM, RSV negative. Blood cultures NGTD. Urine cultures contaminated (UA clean). Per PARK GUARD, patient has new difficulty with oral control of liquids not apparent on previous admission likely secondary to Parkinson's and recommends videofluoroscopy swallow tomorrow. PT ordered. Exam Vital Signs Temp Pulse Resp BP Pulse Ox O2 Del Method O2 Flow Rate 98.5 F 95 20 114/76 97 Nasal Cannula 2 02/27/25 08:00 02/27/25 11:45 02/27/25 11:45 02/27/25 08:44 02/27/25 11:45 02/27/25 08:00 02/27/25 11:45 FiO2 30 02/27/25 00:00 Narrative Exam GENERAL: AOx3, no acute distress, NC 2L, Parkinson tremors HEENT: mucous membranes dry, bilateral sclera anicteric CARDIOVASCULAR: regular rate and irregular rhythm, S1/S2 present, no murmurs appreciated PULMONARY: bilateral wheezes improved, diminished breath sounds L base ABDOMINAL: soft, non-tender, non-distended, no rebound/guarding, bowel sounds present EXTREMITIES: no peripheral edema SKIN: warm and dry, intact, no rashes NEURO: CN II-XII grossly intact, no focal deficits, alert, following commands Objective Labs 02/27/25 04:56 02/27/25 04:56 Labs: Laboratory Results - last 24 hr 02/26/25 02/26/25 02/26/25 11:00 13:45 17:34 WBC RBC Hgb Hct MCV MCH MCHC RDW Std Deviation Plt Count Neut % (Auto) Lymph % (Auto) [facility] % (Auto) Eos % (Auto) Baso % (Auto) Neut # (Auto) Lymph # (Auto) [facility] # (Auto) Eos # (Auto) Baso # (Auto) Immature Gran # (Auto) Absolute Nucleated RBC Immature Gran % Nucleated RBC % Sodium Potassium Chloride Carbon Dioxide Anion Gap BUN Creatinine Estim Creat Clear Calc eGFR BUN/Creatinine Ratio Glucose Calculated Osmolality Lactic Acid 3.2 H 2.6 H Calcium Corrected Calcium Magnesium Total Bilirubin AST ALT Alkaline Phosphatase Total Protein Albumin Globulin Albumin/Globulin Ratio Coccidioides IgG Ab Negative Coccidioides IgM Ab Negative Influenza A (Rapid) Influenza B (Rapid) RSV Rapid 02/26/25 02/27/25 02/27/25 18:22 04:56 05:00 WBC 7.6 RBC 3.26 L Hgb 9.6 L Hct 29.0 L MCV 89 MCH 29.4 MCHC 33.1 RDW Std Deviation Not Performed. Plt Count 208 Neut % (Auto) 95 H Lymph % (Auto) 2 L [facility] % (Auto) 3 Eos % (Auto) 0 Baso % (Auto) 0 Neut # (Auto) 7.2 Lymph # (Auto) 0.1 L [facility] # (Auto) 0.2 Eos # (Auto) 0.0 Baso # (Auto) 0.0 Immature Gran # (Auto) 0.04 H Absolute Nucleated RBC 0.00 Immature Gran % 1 H Nucleated RBC % 0 Sodium 141 Potassium 4.4 Chloride 105 Carbon Dioxide 26.6 Anion Gap 9 BUN 22 Creatinine 0.7 Estim Creat Clear Calc 67.9 eGFR > 60 BUN/Creatinine Ratio 31 H Glucose 119 H Calculated Osmolality 285 Lactic Acid 1.7 Calcium 9.5 Corrected Calcium 9.7 Magnesium 2.0 Total Bilirubin 0.8 AST 18 ALT 8 L Alkaline Phosphatase 69 Total Protein 6.2 Albumin 3.7 Globulin 2.5 Albumin/Globulin Ratio 1.5 Coccidioides IgG Ab Coccidioides IgM Ab Influenza A (Rapid) Negative Influenza B (Rapid) Negative RSV Rapid Negative ABG Interpretation ABG results: 02/25/25 20:17 VBG pH 7.47 VBG pCO2 36 VBG pO2 40 VBG Base Excess 3 Quality Measures Quality Measures sepsis Current suspected stage: ruled out (does not meet criteria) Possible source: pulmonary Blood cultures ordered: completed in ED Antibiotic ordered: Yes Advance care planning discussed with:: patient Assessment & Plan Assessment Current Active Medications: Generic Name Dose Route Start Last Admin Trade Name Freq PRN Reason Stop Dose Admin Acetaminophen 650 mg 02/25/25 20:09 Acetaminophen 325 Mg Tablet PO 03/27/25 20:08 Q6H PRN Fever >101.5 or pain 1-3 Albuterol/Ipratropium 3 ml 02/25/25 20:16 Albuterol/Ipratropium (Duoneb) Rt Licha 3 Ml Nebu INH 03/27/25 20:15 Q4HR PRN SHORTNESS OF BREATH OR WHEEZE Albuterol/Ipratropium 3 ml 02/26/25 07:15 02/27/25 11:45 Albuterol/Ipratropium (Duoneb) Rt Licha 3 Ml Nebu INH 03/28/25 07:14 3 ml Q4HRRT NATHALY Administration Carbidopa/Levodopa 1 tab 02/26/25 09:00 02/27/25 08:44 Carbidopa/Levodopa Cr 50/200 Tabcr PO 03/28/25 08:59 1 tab Q8H NATHALY Administration Ceftriaxone Sodium/Dextrose 1 gm in 50 mls @ 100 mls/hr 02/26/25 09:00 02/27/25 08:44 Rocephin/D5w 1gm Iv Premix IV 03/05/25 08:59 100 mls/hr QDAY NATHALY Administration Azithromycin 500 mg/ Sodium 250 mls @ 250 mls/hr 02/26/25 21:00 02/26/25 20:50 Chloride IV 02/27/25 21:59 250 mls/hr QPM NATHALY Administration Metoprolol Succinate 25 mg 02/26/25 09:00 02/27/25 08:44 Metoprolol Succinate Xl 25 Mg Tabcr PO 03/28/25 08:59 25 mg QDAY NATHALY Administration Ondansetron HCl 4 mg 02/25/25 20:09 Ondansetron Inj 2 Mg/Ml Inj 2 Ml IVP 03/27/25 20:08 Q6H PRN NAUSEA OR VOMITING Protocol Rivaroxaban 20 mg 02/26/25 09:00 02/27/25 08:44 Rivaroxaban 10 Mg Tablet PO 03/28/25 08:59 20 mg QDAY NATHALY Administration Sennosides 1 tab 02/25/25 20:16 Senna/Docusate Sod 1 Tab Tablet PO 03/27/25 20:15 QDAY PRN CONSTIPATION Protocol Sodium Chloride 3 ml 02/25/25 19:05 02/25/25 19:34 Sodium Chloride Rt Licha 0.9% 3 Ml Nebu INH 03/27/25 19:04 3 ml PRN PRN Administration SOLN Sodium Chloride 4 ml 02/26/25 07:20 Sodium Cl Rt Licha 3% 4 Ml Nebu (Non-Formulary) INH 03/28/25 06:59 Q4HRRT PRN congestion, cough Plan Marvin Jackson 84M pmhx significant for Parkinson's disease, atrial fibrillation (on Xarelto), HFpEF (55 to 60%, 01/03/2025), hypertension, and pulmonary hypertension who presented to [facility] ED from SNF on 02/25 for shortness of breath and increased work of breathing, admitted for acute hypoxic respiratory failure secondary to pneumonia. #Acute hypoxic respiratory failure 2/2 #Left base Pneumonia Patient noted to have shortness of breath and work of breathing at SNF with O2 sat 86% at SNF, improved with Oxymask in ambulance. In ED, patient febrile tachycardic and tachypnic. Put on BiPAP with improvement. WBC 7.7, lactic acid 3.2->2.4->4.6->3.1, procal 1.01. CXR significant pneumonia left base. Flu, COVID, RSV and cocci IgM neg. BCx NGTD. UA clean. UCx contamination. PSI/port score 136 points, risk class V, 27 to 29.2% mortality with hospitalization recommended based on risk Plan: - Ceftriaxone 1g QD and Azithromycin 500 mg QD (02/25- - Duoneb q4h scheduled and q2h prn - Supplemental O2 as needed and downtitrate as tolerated - PARK GUARD: Dysphagia 2/MT2 diet, videofluoroscopy swallow tomorrow due to new difficulty with oral control of liquids which was not apparent on speech evaluation last admission #Lactic acidosis, resolved Lactic acid 3.2->2.4->4.6->3.1->2.6->1.7 following small fluid boluses in between iso HFpEF. Likely 2/2 respiratory failure. CK and BHB wnl. Plan: - Fluid boluses as tolerated prn #Atrial fibrillation RVR, resolved #Hx atrial fibrillation, on Xarelto #HFpEF, 55 to 60% 01/03/2025 #Severe pulmonary hypertension Presented in RVR until 2200 02/25, resolved without rhythm or rate control interventions in ED. At home on Xarelto, contributing to elevated INR, and metoprolol XL 25 mg QD. BNP 482 dec from 603 on previous admission. Echocardiogram on 01/07/2025 shows grade 2 diastolic dysfunction, LVEF 55 to 60%, estimated PASP 54 mmHg with severe pulmonary hypertension, moderate aortic valve sclerosis with mild stenosis and moderate regurg, mild mitral valve stenosis and severe regurgitation, and severe biatrial enlargement Plan: - Resumed home Xarelto 20 mg daily and metoprolol XL 25 mg QD - Hold home Lasix 40 mg iso volume depletion on clinical exam - Keep K>4 and Mg>2 at all times #Parkinson's disease Per patient history and patient does take carbidopa levodopa 50-200 mg every 8 hours. Resting tremor was identified on examination on admission. Plan: - Resumed home carbidopa levodopa 50-1200 mg every 8 hours #Anemia, normocytic #Iron deficiency anemia, improved Has hx however Hgb on this admission 10.6 improved since last admission 7.9. Absolute reticulocyte count on 01/08/2025 was elevated at 75.8 with immature reticulocyte fraction elevated at 34.6% Iron panel on 12/30/2024 significant for low iron at 21 and low iron saturation at 5% Plan: - CTM CBC - Patient to follow-up outpatient for further workup #History of hypertension, primary Patient does have a history of hypertension that he takes losartan for. Patient noted to have a blood pressure of 95/70 on admission. Plan: - Hold home losartan iso soft BP Hospital management: Lines: PIV Diet: Cardiac, dysphagia 2 Bowel: Senna prn GI prophylaxis: not indicated DVT prophylaxis: Xarelto Disposition: tele, IV abx, breathing txs, swallow study tomorrow CODE STATUS: FULL CODE Plan of care discussed with attending Dr. Fernandez, and PGY-2 Dr. Barton. Ani Bartholomew, DO PGY-1 Internal Medicine Attending Provider Attestation/Addendum I have seen and examined the patient. I was physically present for the [place] portions of the services provided including history, physical exam, diagnosis, treatment plans and orders. I agree with assessment and plan of care as documented by residents. Even though this this note was carefully revised there may still be minor errors in information systems consultant due to voice recognition software. Tram Fernandez MD
--- NOTE | 2025-02-27 15:59 | PC.SS ---
SS spoke to Kerri from [facility] who explained pt will require insurance authorization to return. Pt will require PT evaluation for insurance authorization.
[2025-02-27] MEDS: ACETAMINOPHEN 325 MG TABLET 650 MG PO (18:23)
[2025-02-27] MEDS: AZITHROMYCIN INJ 500 MG in SODIUM CHLORIDE 0.9% 250 ML 250 ML 250 MG IV (20:14)
[2025-02-28] VITALS (15 sets, daily range): BP systolic 107–139; BP diastolic 71–98; PULSE 72–105; RESP 12–97; TEMP 36.1–37.1; O2SAT 91–100; BMI 21.1; BMI 12.0
[2025-02-28] MEDS: CARBIDOPA/LEVODOPA CR 50/200 TABCR 1 TAB PO ×3 (01:47→19:38)
[2025-02-28] MEDS: ALBUTEROL/IPRATROPIUM (Duoneb) RT SOL 3 ML NEBU INH ×6 (02:46→22:59)
[2025-02-28 05:57] LABS: Basophils # (Auto) 0.0 Thou/mm3 (0.0-0.2); Basophils % (Auto) 0 % (0-2.5); Eosinophils # (Auto) 0.0 Thou/mm3 (0.0-0.5); Eosinophils % (Auto) 0 % (0-10); Hematocrit 29.7 % (41.0-53.0); Hemoglobin 9.4 g/dL (13.5-16.0); Immature Granulocytes Auto 0.04 Thou/mm3 (0.00-0.00); Lymphocytes # (Auto) 0.2 Thou/mm3 (1.0-4.8); Lymphocytes % (Auto) 4 % (10-50); Mean Corpuscular HGB Conc 31.6 g/dl (31.0-37.0); Mean Corpuscular Hemoglobin 28.5 pg (25.0-35.0); Mean Corpuscular Volume 90 fL (80-100); Monocytes # (Auto) 0.2 Thou/mm3 (0.0-0.8); Monocytes % (Auto) 4 % (0-12); Neutrophils # (Auto) 5.3 Thou/mm3 (1.8-7.7); Neutrophils % (Auto) 92 % (37-80); Nucleated Red Blood Cell # 0.00 Thou/mm3 (0.00-0.00); Nucleated Red Blood Cell % 0 /100 WBC (0); Platelet Count 224 Thou/mm3 (140-440); Red Blood Count 3.30 Miln/mm3 (4.50-5.90); White Blood Count 5.7 Thou/mm3 (3.8-10.6)
[2025-02-28 06:36] LABS: Alanine Aminotransferase < 7 U/L (10-49); Albumin, Serum 3.6 gm/dL (3.4-4.8); Albumin/Globulin Ratio 1.4 (1.2-2.2); Alkaline Phosphatase 71 U/L (46-116); Anion Gap 8 (7-16); Aspartate Amino Transferase 24 U/L (0-34); BUN/Creatinine Ratio 30 Ratio (12-20); Bilirubin,Total 0.8 mg/dL (0.3-1.2); Blood Urea Nitrogen 18 mg/dL (9-23); Calcium 9.3 mg/dL (8.3-10.6); Calcium (Corrected) 9.6 mg/dL (8.5-10.1); Carbon Dioxide 26.7 mMol/L (20.0-31.0); Chloride 103 mMol/L (98-107); Creatinine (Component) 0.6 mg/dL (0.6-1.3); Estimated Creatinine Clearance 78.8 mL/min (>60); Globulin 2.5 gm/dL (2.3-3.5); Glucose 89 mg/dL (74-106); Magnesium 2.0 mg/dL (1.6-2.6); Osmolality,Calculated 276 (275-295); Potassium 4.2 mMol/L (3.4-5.1); Sodium 138 mMol/L (136-145); Total Protein 6.1 gm/dL (5.7-8.2); eGFR > 60 See Note
--- NOTE | 2025-02-28 07:00 | XR_ITS ---
EXAMINATION: Video esophagram Modified barium swallow Fluoroscopy 96 spot lateral fluoroscopic films of the neck PA chest single view Date and time: February 28, 2025, 1205 hours INDICATIONS: Difficulty swallowing this month coughing with eating TECHNIQUE AND FINDINGS: Patient swallowed barium mixtures including pudding, nectar, thin, thin through straw 96 spot fluoroscopic films 1 frame per second of the soft tissue neck with the patient swallowing, fluoroscopy 32 seconds Premature transfer and swelling with most of the barium mixtures Thin barium through a straw resulted in aspiration with coughing Chest film post procedure demonstrates enlarged cardiac contour with prominent vascular congestion, no aspiration barium IMPRESSION: Aspiration with coughing with administration thin barium through a straw
--- NOTE | 2025-02-28 07:54 | XR_ITS ---
EXAMINATION: AP chest single view TECHNIQUE: AP portable semiupright chest single view Date and time: February 28, 2025, 0834 hours, comparison February 25, 2025 INDICATIONS: Patient with altered mental status and shortness of breath today FINDINGS: Prominent pneumonia left base Mild enlargement cardiac contour Mild elevation right hemidiaphragm Mild vascular congestion Prominent osteopenia IMPRESSION: Prominent pneumonia left base
--- NOTE | 2025-02-28 08:04 | PC.RT ---
Resident Fernando called to bedside, for Shortness of breath and audible crackles.PT sounds like possible fluid overload. Instructed to suction patient and give CPT. Post suction patient stated he did not have any pleghm and felt as though he was drowning .
[2025-02-28] MEDS: METOPROLOL SUCCINATE XL 25 MG TABCR PO (08:08)
[2025-02-28] MEDS: cefTRIAXone/D5w 1gm IV premix 1 GM/50 ML BAG IV (08:09)
[2025-02-28] MEDS: FUROSEMIDE INJ 10 MG/ML VIAL 2 ML 20 MG IVP (08:09)
[2025-02-28] MEDS: RIVAROXABAN 10 MG TABLET 20 MG PO (08:09)
--- NOTE | 2025-02-28 08:48 | PCS.ST ---
Follow up note: On IV antibiotic. Pt will require PT evaluation for insurance authorization to return to [facility].
--- NOTE | 2025-02-28 12:05 | ESPR_ITS ---
<Statement entered by Mk Barton MD - 02/28/25 22:13> I saw and examined patient personally and supervised PGY 1 resident, Dr. Bartholomew with formulating a management plan. I agree with the documentation with the exceptions as listed below. This a.m. patient complained of feeling like he was drowning , tachypneic with respirations in the 20s and saturating 94% on 2L O2 via oxy mask. Chest x-ray mild vascular congestion and left base pneumonia. Lasix 20 mg IV x 1 was given after which patient respiration improved and he was weaned off of oxygen. He also underwent videofluoroscopic study which confirmed aspiration. Speech therapy made recommendations for thickened liquids and feeds to reduce aspiration risk. Once condition continues to improve, anticipate discharge back to his SNF within next 24 hours. Plan of care discussed with Attending Dr. Rebecca Barton MD PGY 2 Disclaimer: This note was dictated by speech recognition. Minor errors in ultrasonographer may be present due to voice recognition software. Documentation for date of: 02/28/25 Subjective Subjective Interval history: No acute events. Patient is examined at bedside. On a.m. exam during breathing treatment, patient was noted to be tachypneic with coarse breath sounds bilaterally. Lasix 40 mg x 1 and CXR ordered, given patient HFpEF status and did receive fluid boluses for lactic acidosis. Videofluoroscopy study showed aspiration and [employer] dietary modifications as below. PT evaluated recommend SNF. Restart home Lasix 20 mg twice daily tomorrow morning. Continue her respiratory status for 1 day given new aspiration finding on videofluoroscopy study, anticipate discharge within the next 24 to 48 hours. Exam Vital Signs Temp Pulse Resp BP Pulse Ox O2 Del Method O2 Flow Rate 97.0 F 97 21 H 127/86 H 99 Room Air 2.5 02/28/25 08:00 02/28/25 10:44 02/28/25 10:44 02/28/25 08:09 02/28/25 10:44 02/28/25 04:00 02/27/25 16:00 FiO2 30 02/28/25 07:29 Narrative Exam GENERAL: AOx3, no acute distress, Parkinson tremors HEENT: mucous membranes dry, bilateral sclera anicteric CARDIOVASCULAR: regular rate and irregular rhythm, S1/S2 present, no murmurs appreciated PULMONARY: bilateral wheezes at bases, coarse breath sounds bilaterally, diminished breath sounds L base ABDOMINAL: soft, non-tender, non-distended, no rebound/guarding, bowel sounds present EXTREMITIES: no peripheral edema SKIN: warm and dry, intact, no rashes NEURO: CN II-XII grossly intact, no focal deficits, alert, following commands Objective Labs 02/28/25 05:35 02/28/25 05:35 Labs: Laboratory Results - last 24 hr 02/28/25 05:35 WBC 5.7 RBC 3.30 L Hgb 9.4 L Hct 29.7 L MCV 90 MCH 28.5 MCHC 31.6 RDW Std Deviation Not Performed. Plt Count 224 Neut % (Auto) 92 H Lymph % (Auto) 4 L [place] % (Auto) 4 Eos % (Auto) 0 Baso % (Auto) 0 Neut # (Auto) 5.3 Lymph # (Auto) 0.2 L [place] # (Auto) 0.2 Eos # (Auto) 0.0 Baso # (Auto) 0.0 Immature Gran # (Auto) 0.04 H Absolute Nucleated RBC 0.00 Immature Gran % 1 H Nucleated RBC % 0 Sodium 138 Potassium 4.2 Chloride 103 Carbon Dioxide 26.7 Anion Gap 8 BUN 18 Creatinine 0.6 Estim Creat Clear Calc 78.8 eGFR > 60 BUN/Creatinine Ratio 30 H Glucose 89 Calculated Osmolality 276 Calcium 9.3 Corrected Calcium 9.6 Magnesium 2.0 Total Bilirubin 0.8 AST 24 ALT < 7 L Alkaline Phosphatase 71 Total Protein 6.1 Albumin 3.6 Globulin 2.5 Albumin/Globulin Ratio 1.4 ABG Interpretation ABG results: 02/25/25 20:17 VBG pH 7.47 VBG pCO2 36 VBG pO2 40 VBG Base Excess 3 Quality Measures Quality Measures sepsis Current suspected stage: ruled out Possible source: pulmonary Blood cultures ordered: completed in ED Antibiotic ordered: Yes Advance care planning discussed with:: patient Assessment & Plan Assessment Current Active Medications: Generic Name Dose Route Start Last Admin Trade Name Freq PRN Reason Stop Dose Admin Acetaminophen 650 mg 02/25/25 20:09 02/27/25 18:23 Acetaminophen 325 Mg Tablet PO 03/27/25 20:08 650 mg Q6H PRN Administration Fever >101.5 or pain 1-3 Albuterol/Ipratropium 3 ml 02/25/25 20:16 Albuterol/Ipratropium (Duoneb) Rt Licha 3 Ml Nebu INH 03/27/25 20:15 Q4HR PRN SHORTNESS OF BREATH OR WHEEZE Albuterol/Ipratropium 3 ml 02/26/25 07:15 02/28/25 10:44 Albuterol/Ipratropium (Duoneb) Rt Licha 3 Ml Nebu INH 03/28/25 07:14 3 ml Q4HRRT NATHALY Administration Carbidopa/Levodopa 1 tab 02/26/25 09:00 02/28/25 08:08 Carbidopa/Levodopa Cr 50/200 Tabcr PO 03/28/25 08:59 1 tab Q8H NATHALY Administration Furosemide 20 mg 03/01/25 09:00 Furosemide 20 Mg Tablet PO 03/31/25 08:59 BIDD NATHALY Ceftriaxone Sodium/Dextrose 1 gm in 50 mls @ 100 mls/hr 02/26/25 09:00 02/28/25 08:09 Rocephin/D5w 1gm Iv Premix IV 03/05/25 08:59 100 mls/hr QDAY NATHALY Administration Metoprolol Succinate 25 mg 02/26/25 09:00 02/28/25 08:08 Metoprolol Succinate Xl 25 Mg Tabcr PO 03/28/25 08:59 25 mg QDAY NATHALY Administration Ondansetron HCl 4 mg 02/25/25 20:09 Ondansetron Inj 2 Mg/Ml Inj 2 Ml IVP 03/27/25 20:08 Q6H PRN NAUSEA OR VOMITING Protocol Rivaroxaban 20 mg 02/26/25 09:00 02/28/25 08:09 Rivaroxaban 10 Mg Tablet PO 03/28/25 08:59 20 mg QDAY NATHALY Administration Sennosides 1 tab 02/25/25 20:16 Senna/Docusate Sod 1 Tab Tablet PO 03/27/25 20:15 QDAY PRN CONSTIPATION Protocol Sodium Chloride 3 ml 02/25/25 19:05 02/25/25 19:34 Sodium Chloride Rt Licha 0.9% 3 Ml Nebu INH 03/27/25 19:04 3 ml PRN PRN Administration SOLN Sodium Chloride 4 ml 02/26/25 07:20 Sodium Cl Rt Licha 3% 4 Ml Nebu (Non-Formulary) INH 03/28/25 06:59 Q4HRRT PRN congestion, cough Plan Marvin Jackson 84M pmhx significant for Parkinson's disease, atrial fibrillation (on Xarelto), HFpEF (55 to 60%, 01/03/2025), hypertension, and pulmonary hypertension who presented to [facility] ED from SNF on 02/25 for shortness of breath and increased work of breathing, admitted for acute hypoxic respiratory failure secondary to pneumonia. #Acute hypoxic respiratory failure 2/2 #Left base Pneumonia Patient noted to have shortness of breath and work of breathing at SNF with O2 sat 86% at SNF, improved with Oxymask in ambulance. In ED, patient febrile tachycardic and tachypnic. Put on BiPAP with improvement. WBC 7.7, lactic acid 3.2->2.4->4.6->3.1, procal 1.01. CXR significant pneumonia left base. Flu, COVID, RSV and cocci IgM neg. BCx NGTD. UA clean. UCx contamination. Videofluoroscopy swallow showed aspiration with coughing PSI/port score 136 points, risk class V, 27 to 29.2% mortality with hospitalization recommended based on risk Azithromycin 500 mg QD (02/25-02/28) Plan: - Ceftriaxone 1g QD (02/25- - Duoneb q4h scheduled and q2h prn - Supplemental O2 as needed and downtitrate as tolerated - [employer]: recommends dysphagia 1/MT2 diet with no straws given videofluoroscopy findings - PT: back to SNF #Acute excerbation of HFpEF, 55 to 60% 01/03/2025 On 02/28, patient noted to have coarse breath sounds during breathing treatment. Was given lasix 40 mg x1 due to previous fluid boluses to clear lactic acid. Chest x-ray showed mild vascular congestion with prominent pneumonia left base. Plan: - Resume home Lasix 20 mg BID - Condom catheter, strict I&Os #Atrial fibrillation RVR, resolved #Hx atrial fibrillation, on Xarelto #Severe pulmonary hypertension Presented in RVR until 02/25, resolved without rhythm or rate control interventions in ED. At home on Xarelto, contributing to elevated INR, and metoprolol XL 25 mg QD. BNP 482 dec from 603 on previous admission. Echocardiogram on 01/07/2025 shows grade 2 diastolic dysfunction, LVEF 55 to 60%, estimated PASP 54 mmHg with severe pulmonary hypertension, moderate aortic valve sclerosis with mild stenosis and moderate regurg, mild mitral valve stenosis and severe regurgitation, and severe biatrial enlargement Plan: - Resumed home Xarelto 20 mg daily and metoprolol XL 25 mg QD - Keep K>4 and Mg>2 at all times #Lactic acidosis, resolved Lactic acid 3.2->2.4->4.6->3.1->2.6->1.7 following small fluid boluses in between iso HFpEF. Likely 2/2 respiratory failure. CK and BHB wnl. Plan: - Fluid boluses as tolerated prn #Parkinson's disease Per patient history and patient does take carbidopa levodopa 50-200 mg every 8 hours. Resting tremor was identified on examination on admission. Plan: - Resumed home carbidopa levodopa 50-1200 mg every 8 hours #Anemia, normocytic #Iron deficiency anemia, improved Has hx however Hgb on this admission 10.6 improved since last admission 7.9. Absolute reticulocyte count on 01/08/2025 was elevated at 75.8 with immature reticulocyte fraction elevated at 34.6% Iron panel on 12/30/2024 significant for low iron at 21 and low iron saturation at 5% Plan: - CTM CBC - Patient to follow-up outpatient for further workup #History of hypertension, primary Patient does have a history of hypertension that he takes losartan for. Patient noted to have a blood pressure of 95/70 on admission. Plan: - Hold home losartan iso soft BP Hospital management: Lines: PIV Diet: Cardiac, dysphagia 2 Bowel: Senna prn GI prophylaxis: not indicated DVT prophylaxis: Xarelto Disposition: tele, CTM respiratory status given aspiration seen on swallow study CODE STATUS: FULL CODE Plan of care discussed with attending Dr. Fernandez, and PGY-2 Dr. Barton. Ani Bartholomew, DO PGY-1 Internal Medicine Attending Provider Attestation/Addendum I have seen and examined the patient. I was physically present for the betancourt portions of the services provided including history, physical exam, diagnosis, treatment plans and orders. I agree with assessment and plan of care as documented by residents. Even though this this note was carefully revised there may still be minor errors in ultrasonographer due to voice recognition software. Tram Fernandez MD
--- NOTE | 2025-02-28 12:39 | PCS.ST ---
Videofluoroscopy swallow study completed. See Speech therapy report for details. Aspiration of thin liquids from a straw with good airway sensation. Otherwise mild pharyngeal dysphagia requiring a modified diet and swallowing precautions.
--- NOTE | 2025-02-28 13:39 | PC.SS ---
SS has sent inquiry to [facility] for insurance authorization.
--- NOTE | 2025-02-28 14:29 | PC.SS ---
SS attempted to meet with pt but he was confused. Pt was not able to communicate with SS. Pt was admitted for AHRF. Pt is from [facility] and return upon dc. SS spoke to Kerri from [facility] who explained pt is total care and transfers with marge lift. Per Kerri from [facility], , Racheal Jackson is patient's medical decision maker. SS has informed Kerri from [facility] inquiry has been sent for insurance authorization. D/C plan: Return to [facility] Next of Kin: Racheal Jackson, , phone# [phone] PCP: Dr. Gamble Address: Correct on facesheet
[2025-03-01] VITALS (15 sets, daily range): BP systolic 116–137; BP diastolic 75–92; PULSE 69–104; RESP 18–98; TEMP 36.1–36.8; O2SAT 93–100
[2025-03-01] MEDS: CARBIDOPA/LEVODOPA CR 50/200 TABCR 1 TAB PO ×3 (00:26→17:05)
[2025-03-01] MEDS: ALBUTEROL/IPRATROPIUM (Duoneb) RT SOL 3 ML NEBU INH ×6 (02:30→22:23)
[2025-03-01 05:58] LABS: Basophils # (Auto) 0.0 Thou/mm3 (0.0-0.2); Basophils % (Auto) 0 % (0-2.5); Eosinophils # (Auto) 0.0 Thou/mm3 (0.0-0.5); Eosinophils % (Auto) 1 % (0-10); Hematocrit 26.9 % (41.0-53.0); Hemoglobin 8.9 g/dL (13.5-16.0); Immature Granulocytes Auto 0.05 Thou/mm3 (0.00-0.00); Lymphocytes # (Auto) 0.3 Thou/mm3 (1.0-4.8); Lymphocytes % (Auto) 9 % (10-50); Mean Corpuscular HGB Conc 33.1 g/dl (31.0-37.0); Mean Corpuscular Hemoglobin 29.4 pg (25.0-35.0); Mean Corpuscular Volume 89 fL (80-100); Monocytes # (Auto) 0.2 Thou/mm3 (0.0-0.8); Monocytes % (Auto) 5 % (0-12); Neutrophils # (Auto) 3.0 Thou/mm3 (1.8-7.7); Neutrophils % (Auto) 84 % (37-80); Nucleated Red Blood Cell # 0.00 Thou/mm3 (0.00-0.00); Nucleated Red Blood Cell % 0 /100 WBC (0); Platelet Count 252 Thou/mm3 (140-440); Red Blood Count 3.03 Miln/mm3 (4.50-5.90); White Blood Count 3.6 Thou/mm3 (3.8-10.6)
[2025-03-01 06:42] LABS: Alanine Aminotransferase < 7 U/L (10-49); Albumin, Serum 3.3 gm/dL (3.4-4.8); Albumin/Globulin Ratio 1.4 (1.2-2.2); Alkaline Phosphatase 74 U/L (46-116); Anion Gap 7 (7-16); Aspartate Amino Transferase 17 U/L (0-34); BUN/Creatinine Ratio 27 Ratio (12-20); Bilirubin,Total 0.7 mg/dL (0.3-1.2); Blood Urea Nitrogen 16 mg/dL (9-23); Calcium 9.0 mg/dL (8.3-10.6); Calcium (Corrected) 9.6 mg/dL (8.5-10.1); Carbon Dioxide 26.7 mMol/L (20.0-31.0); Chloride 104 mMol/L (98-107); Creatinine (Component) 0.6 mg/dL (0.6-1.3); Estimated Creatinine Clearance 81.2 mL/min (>60); Globulin 2.4 gm/dL (2.3-3.5); Glucose 84 mg/dL (74-106); Magnesium 2.0 mg/dL (1.6-2.6); Osmolality,Calculated 275 (275-295); Potassium 3.6 mMol/L (3.4-5.1); Sodium 138 mMol/L (136-145); Total Protein 5.7 gm/dL (5.7-8.2); eGFR > 60 See Note
[2025-03-01] MEDS: RIVAROXABAN 10 MG TABLET 20 MG PO (08:08)
[2025-03-01] MEDS: cefTRIAXone/D5w 1gm IV premix 1 GM/50 ML BAG IV (08:08)
[2025-03-01] MEDS: METOPROLOL SUCCINATE XL 25 MG TABCR PO (08:09)
--- NOTE | 2025-03-01 14:06 | ESDS_ITS ---
<Statement entered by Mk Barton MD - 03/01/25 16:37> I saw and examined patient personally and supervised PGY 1 resident, Dr. Bartholomew with formulating a discharge plan. I agree with the documentation as listed below. Plan of care discussed with Attending Dr. Rebecca Barton MD PGY 2 Disclaimer: This note was dictated by speech recognition. Minor errors in embedded software architect may be present due to voice recognition software. Planned Discharge Date 03/01/25 DS: Providers Provider Date of admission: 02/25/25 19:58 Primary care physician: Physician No Primary/Family Admitting Provider: Tram Fernandez MD Attending Provider on Admission: Tram Fernandez MD Consults: 02/26/25 07:07 Referral Wound Care Routine Comment: admitted from snf with stage one to coccyx 02/26/25 08:34 Referral Speech Therapy Routine Comment: 02/27/25 14:12 Referral Physical Therapy Urgent Comment: Physician Instructions: Instructions: Patient needs a PT eval/note for his SNF to re-accept him 02/28/25 15:38 Referral Nutritional Services Routine Comment: Wounds Attending Provider on DC: Tram Fernandez MD Discharging Provider: Tram Fernandez MD DS: Diagnosis Problem List Completed Was Problem List Reviewed/Reconciled?: Yes Hospital Course Hospital Course Hospital course: Summary: Marvin Jackson 84M pmhx significant for Parkinson's disease, atrial fibrillation (on Xarelto), HFpEF (55 to 60%, 01/03/2025), hypertension, and pulmonary hypertension who presented to [facility] ED from SNF on 02/25 for shortness of breath and increased work of breathing, admitted for acute hypoxic respiratory failure secondary to pneumonia. Patient noted to have shortness of breath and work of breathing at SNF with O2 sat 86% at SNF, improved with Oxymask in ambulance. In ED, patient febrile tachycardic and tachypnic. Put on BiPAP with improvement. On admission WBC 7.7, lactic acid 3.2->2.4->4.6->3.1 following fluid boluses, procal 1.01. CXR significant pneumonia left base. Flu, COVID, RSV and cocci IgM neg. BCx no growth. UA clean. Patient was treated with antibiotics, breathing treatments and supplemental O2. Patient was of evaluated by [employer] and subsequently underwent videofluoroscopy showing aspiration, recommending dysphagia 1 diet with no straws due to fluoroscopy findings. PT evaluation recommended to return to SNF. On admission patient also presented in atrial fibrillation rapid response resolved without rhythm or rate control. Of note, patient was noted to have acute exacerbation of HFpEF due to fluid boluses to clear lactic acidosis and was treated with diuretics with resolution. On discharge, patient is hemodynamically stable, saturating well on room air and ready to be discharged back to fdc facility. Imaging: Echocardiogram on 01/07/2025 shows grade 2 diastolic dysfunction, LVEF 55 to 60%, estimated PASP 54 mmHg with severe pulmonary hypertension, moderate aortic valve sclerosis with mild stenosis and moderate regurg, mild mitral valve stenosis and severe regurgitation, and severe biatrial enlargement Chest x-ray showed mild vascular congestion with prominent pneumonia left base. Videofluoroscopy swallow showed aspiration with coughing Discharge Recommendations: - Please take all medications as prescribed - START antibiotics for two more days to complete full course for your pneumonia - START dysphagia diets and do not use straws as you were found to aspirate on videofluroscopy swallow study - Continue all home medications except as above - Please follow up with your PCP within one week of discharge - If your symptoms worsen, please seek immediate medical attention and return to your nearest emergency room. - If you do not have a PCP, you may follow up at the [facility] at [address] [place] [address] [id number] [id number], Hospital Diagnoses: #Acute hypoxic respiratory failure 2/2 #Left base Pneumonia #Acute excerbation of HFpEF, resolved, 55 to 60% 01/03/2025 #Atrial fibrillation RVR, resolved #Hx atrial fibrillation, on Xarelto #Severe pulmonary hypertension #Lactic acidosis, resolved #Parkinson's disease #Anemia, normocytic #Iron deficiency anemia, improved #History of hypertension, primary Plan of care discussed with attending Dr. Fernandez, and senior resident Dr. Barton. Ani Bartholomew, DO Internal Medicine, PGY-1 Time Spent with Patient Time attestation: Total time spent providing and/or coordinating discharge services: 39 minutes Time spent: Greater than 30 minutes Exam Vital Signs Temp Pulse Resp BP Pulse Ox O2 Del Method O2 Flow Rate 98.3 F 93 19 128/77 99 Room Air 2.5 03/01/25 12:00 03/01/25 12:00 03/01/25 12:00 03/01/25 12:00 03/01/25 12:00 03/01/25 12:00 02/27/25 16:00 FiO2 30 02/28/25 07:29 Narrative Exam GENERAL: AOx3, no acute distress, Parkinson tremors HEENT: mucous membranes dry, bilateral sclera anicteric CARDIOVASCULAR: regular rate and irregular rhythm, S1/S2 present, no murmurs appreciated PULMONARY: diminished breath sounds L base, mild coarse expiratory breath sounds bilaterally ABDOMINAL: soft, non-tender, non-distended, no rebound/guarding, bowel sounds present EXTREMITIES: no peripheral edema SKIN: warm and dry, intact, no rashes NEURO: CN II-XII grossly intact, no focal deficits, alert, following commands Discharge Plan Plan Patient Disposition: Xfer Skilled Nsg Fac (SNF) Patient condition on transfer: Stable and Benefits outweigh risks Care Plan Goals: - You have been started on anitbiotics for your pneumonia. Take for 2 more days - You have been started on a thickened liquid and pur?ed diet by speech therapy to prevent further episodes of aspiration. - Continue the rest of your home medications as before. - Follow up with your primary care physician within 1 week of discharge. If you do not have a primary care physician, please follow up with the [facility] Residents clinic ([phone]) ? If you experience any new, worsening or persistent symptoms either call your primary doctor, or dial 911 or present to the emergency department. Prescriptions/Referrals Prescriptions/Med Rec: New amoxicillin-pot clavulanate 875-125 mg tablet 1 tab PO BID 2 Days Qty: 4 0RF Rx Instructions: received 5 days of treatment. Start on 03/02 to complete 7 days total for CAP Continued ipratropium-albuterol 0.5 mg-3 mg(2.5 mg base)/3 mL solution for nebulization 3 ml INHALATION Q6H PRN (Reason: shortness of breath) metoprolol succinate 25 mg tablet extended release 24 hr 25 mg PO DAILY furosemide [Lasix] 20 mg tablet 20 mg PO Q12H carbidopa-levodopa 50-200 mg tablet extended release 1 tab PO TID Rx Instructions: divide evenly over waking hours losartan 50 mg tablet 50 mg PO QDAY Xarelto 20 mg tablet 20 mg PO QDAY Rx Instructions: must administer with evening meal Referrals: [facility] [Outside] No Primary/Family,Physician [Primary Care Provider] Patient/Caregiver Discharge Instructions Education Materials: What Is Pneumonia?, When You Have Pneumonia, Larynx Exercises, Dysphagia Aspiration, Dysphagia Diet- Managing Drinks, Dysphagia Diet- Managing Foods, Dysphagia Aspiration Tx Print Language: Wolof Stand Alone Forms: Angie Award Info., Patient Portal Info Letter Discharge Order Discharge Orders: Discharge (Routine); Ordered 03/01/25 Ordered By: Mk Barton Quality Discharge Quality Measures VTE prophylaxis Attestestation MD Attestation I have seen and examined the patient. I was physically present for the betancourt portions of the services provided including history, physical exam, diagnosis, treatment plans and orders. I agree with assessment and plan of care as documented by residents. Even though this this note was carefully revised there may still be minor errors in embedded software architect due to voice recognition software. Tram Fernandez MD
--- NOTE | 2025-03-01 15:34 | PC.SS ---
[employer] (ANIA) Kassy contacted [facility]-Admission Coordinator, Kerri, who reported that insurance authorization was not obtained on 02/28/2025.
[2025-03-02] VITALS (14 sets, daily range): BP systolic 110–132; BP diastolic 66–91; PULSE 63–92; RESP 20–97; TEMP 36.1–36.9; O2SAT 94–100
[2025-03-02] MEDS: CARBIDOPA/LEVODOPA CR 50/200 TABCR 1 TAB PO ×3 (00:27→17:23)
[2025-03-02] MEDS: ALBUTEROL/IPRATROPIUM (Duoneb) RT SOL 3 ML NEBU INH ×5 (02:04→22:31)
[2025-03-02 06:19] LABS: Basophils # (Auto) 0.0 Thou/mm3 (0.0-0.2); Basophils % (Auto) 0 % (0-2.5); Eosinophils # (Auto) 0.0 Thou/mm3 (0.0-0.5); Eosinophils % (Auto) 1 % (0-10); Hematocrit 26.1 % (41.0-53.0); Immature Granulocytes Auto 0.09 Thou/mm3 (0.00-0.00); Lymphocytes # (Auto) 0.3 Thou/mm3 (1.0-4.8); Lymphocytes % (Auto) 10 % (10-50); Mean Corpuscular HGB Conc 32.6 g/dl (31.0-37.0); Mean Corpuscular Hemoglobin 29.1 pg (25.0-35.0); Mean Corpuscular Volume 89 fL (80-100); Monocytes # (Auto) 0.2 Thou/mm3 (0.0-0.8); Monocytes % (Auto) 6 % (0-12); Neutrophils # (Auto) 2.7 Thou/mm3 (1.8-7.7); Neutrophils % (Auto) 80 % (37-80); Nucleated Red Blood Cell # 0.00 Thou/mm3 (0.00-0.00); Nucleated Red Blood Cell % 0 /100 WBC (0); Platelet Count 266 Thou/mm3 (140-440); RDW Standard Deviation 79.3 fL (35.1-43.9); Red Blood Count 2.92 Miln/mm3 (4.50-5.90); White Blood Count 3.3 Thou/mm3 (3.8-10.6)
[2025-03-02 06:51] LABS: Alanine Aminotransferase < 7 U/L (10-49); Albumin, Serum 3.1 gm/dL (3.4-4.8); Albumin/Globulin Ratio 1.2 (1.2-2.2); Alkaline Phosphatase 74 U/L (46-116); Anion Gap 7 (7-16); Aspartate Amino Transferase 16 U/L (0-34); BUN/Creatinine Ratio 25 Ratio (12-20); Bilirubin,Total 0.8 mg/dL (0.3-1.2); Blood Urea Nitrogen 15 mg/dL (9-23); Calcium 8.6 mg/dL (8.3-10.6); Calcium (Corrected) 9.3 mg/dL (8.5-10.1); Carbon Dioxide 26.7 mMol/L (20.0-31.0); Chloride 104 mMol/L (98-107); Creatinine (Component) 0.6 mg/dL (0.6-1.3); Estimated Creatinine Clearance 81.2 mL/min (>60); Globulin 2.6 gm/dL (2.3-3.5); Glucose 84 mg/dL (74-106); Magnesium 2.0 mg/dL (1.6-2.6); Osmolality,Calculated 275 (275-295); Potassium 3.7 mMol/L (3.4-5.1); Sodium 138 mMol/L (136-145); Total Protein 5.7 gm/dL (5.7-8.2); eGFR > 60 See Note
[2025-03-02 07:02] LABS: Hemoglobin 8.5 g/dL (13.5-16.0)
[2025-03-02] MEDS: METOPROLOL SUCCINATE XL 25 MG TABCR PO (09:27)
[2025-03-02] MEDS: RIVAROXABAN 10 MG TABLET 20 MG PO (09:27)
[2025-03-02] MEDS: cefTRIAXone/D5w 1gm IV premix 1 GM/50 ML BAG IV (09:28)
[2025-03-02] MEDS: POTASSIUM CHL 10 mEq IVPB 10 MEQ/100 ML BAG 100 MEQ IV (09:28)
[2025-03-02] MEDS: POTASSIUM CHL 10 mEq IVPB 10 MEQ/100 ML BAG 50 MEQ IV ×3 (11:47→16:01)
--- NOTE | 2025-03-02 14:46 | ESPR_ITS ---
<Statement entered by Mk Barton MD - 03/02/25 15:06> I saw and examined patient personally and supervised PGY 1 resident, Dr. Leblanc with formulating a management plan. I agree with the documentation with the exceptions as listed below. Patient currently cleared from a medical standpoint for discharge. He completed 5 days of ceftriaxone IV for aspiration pneumonia. He also underwent videofluoroscopic study while inpatient which did confirm aspiration. Speech therapy was consulted and made modifications to patient's diet to reduce aspiration risk. At this point currently pending insurance authorization [which does not occur over the weekends as we were told] for patient to return to his SNF. Plan of care discussed with Attending Dr. Rebecca Barton MD PGY 2 Disclaimer: This note was dictated by speech recognition. Minor errors in appointment coordinator may be present due to voice recognition software. Documentation for date of: 03/02/25 Subjective Subjective Interval history: Patient was seen and examined at bedside. No acute events took place overnight. Patient is in marked dysarthria, which is his baseline. A&O x2.? Patient cannot identify the city in which he is.? This morning, he was complaining of LUE pain at the shoulder. Will order US Doppler to rule out DVT. Will stop morning labs. Patient is stable and pending insurance authorization for placement which won?t take place until Monday. VS RR 24 CBC trickle down Hgb 8.5 CMP K+ 3.7 (+40mEq), Exam Vital Signs Temp Pulse Resp BP Pulse Ox O2 Del Method O2 Flow Rate 98.2 F 92 30 H 122/76 95 Room Air 2.5 03/02/25 12:00 03/02/25 12:00 03/02/25 12:03/02/25 12:00 03/02/25 12:03/02/25 12:02/27/25 16:00 FiO2 30 02/28/25 07:29 Narrative Exam GENERAL: AOx3, no acute distress, Parkinson tremors HEENT: mucous membranes dry, bilateral sclera anicteric CARDIOVASCULAR: regular rate and irregular rhythm, S1/S2 present, no murmurs appreciated PULMONARY: diminished breath sounds L base, mild coarse expiratory breath sounds bilaterally ABDOMINAL: soft, non-tender, non-distended, no rebound/guarding, bowel sounds present EXTREMITIES: no peripheral edema SKIN: warm and dry, intact, no rashes NEURO: CN II-XII grossly intact, no focal deficits, alert, following commands Objective Labs 03/03/25 05:52 03/03/25 05:52 Labs: Laboratory Results - last 24 hr 03/02/25 05:45 WBC 3.3 L RBC 2.92 L Hgb 8.5 L Hct 26.1 L MCV 89 MCH 29.1 MCHC 32.6 RDW Std Deviation 79.3 H Plt Count 266 Neut % (Auto) 80 Lymph % (Auto) 10 Morehouse % (Auto) 6 Eos % (Auto) 1 Baso % (Auto) 0 Neut # (Auto) 2.7 Lymph # (Auto) 0.3 L [place]house # (Auto) 0.2 Eos # (Auto) 0.0 Baso # (Auto) 0.0 Immature Gran # (Auto) 0.09 H Absolute Nucleated RBC 0.00 Immature Gran % 3 H Nucleated RBC % 0 Sodium 138 Potassium 3.7 Chloride 104 Carbon Dioxide 26.7 Anion Gap 7 BUN 15 Creatinine 0.6 Estim Creat Clear Calc 81.2 eGFR > 60 BUN/Creatinine Ratio 25 H Glucose 84 Calculated Osmolality 275 Calcium 8.6 Corrected Calcium 9.3 Magnesium 2.0 Total Bilirubin 0.8 AST 16 ALT < 7 L Alkaline Phosphatase 74 Total Protein 5.7 Albumin 3.1 L Globulin 2.6 Albumin/Globulin Ratio 1.2 ABG Interpretation ABG results: 02/25/25 20:17 VBG pH 7.47 VBG pCO2 36 VBG pO2 40 VBG Base Excess 3 Quality Measures Quality Measures VTE prophylaxis Advance care planning discussed with:: patient Assessment & Plan Assessment Current Active Medications: Generic Name Dose Route Start Last Admin Trade Name Freq PRN Reason Stop Dose Admin Acetaminophen 650 mg 02/25/25 20:09 02/27/25 18:23 Acetaminophen 325 Mg Tablet PO 03/27/25 20:08 650 mg Q6H PRN Administration Fever >101.5 or pain 1-3 Albuterol/Ipratropium 3 ml 02/25/25 20:16 Albuterol/Ipratropium (Duoneb) Rt Licha 3 Ml Nebu INH 03/27/25 20:15 Q4HR PRN SHORTNESS OF BREATH OR WHEEZE Albuterol/Ipratropium 3 ml 02/26/25 07:15 03/02/25 10:28 Albuterol/Ipratropium (Duoneb) Rt Licha 3 Ml Nebu INH 03/28/25 07:14 3 ml Q4HRRT NATHALY Administration Carbidopa/Levodopa 1 tab 02/26/25 09:00 03/02/25 09:27 Carbidopa/Levodopa Cr 50/200 Tabcr PO 03/28/25 08:59 1 tab Q8H NATHALY Administration Furosemide 20 mg 03/01/25 09:00 03/02/25 05:26 Furosemide 20 Mg Tablet PO 03/31/25 08:59 20 mg BIDD NATHALY Administration Ceftriaxone Sodium/Dextrose 1 gm in 50 mls @ 100 mls/hr 02/26/25 09:00 03/02/25 09:28 Rocephin/D5w 1gm Iv Premix IV 03/05/25 08:59 100 mls/hr QDAY NATHALY Administration Metoprolol Succinate 25 mg 02/26/25 09:00 03/02/25 09:27 Metoprolol Succinate Xl 25 Mg Tabcr PO 03/28/25 08:59 25 mg QDAY NATHALY Administration Ondansetron HCl 4 mg 02/25/25 20:09 Ondansetron Inj 2 Mg/Ml Inj 2 Ml IVP 03/27/25 20:08 Q6H PRN NAUSEA OR VOMITING Protocol Rivaroxaban 20 mg 02/26/25 09:00 03/02/25 09:27 Rivaroxaban 10 Mg Tablet PO 03/28/25 08:59 20 mg QDAY NATHALY Administration Sennosides 1 tab 02/25/25 20:16 Senna/Docusate Sod 1 Tab Tablet PO 03/27/25 20:15 QDAY PRN CONSTIPATION Protocol Sodium Chloride 3 ml 02/25/25 19:05 02/25/25 19:34 Sodium Chloride Rt Licha 0.9% 3 Ml Nebu INH 03/27/25 19:04 3 ml PRN PRN Administration SOLN Sodium Chloride 4 ml 02/26/25 07:20 Sodium Cl Rt Licha 3% 4 Ml Nebu (Non-Formulary) INH 03/28/25 06:59 Q4HRRT PRN congestion, cough Plan Marvin Jackson 84M pmhx significant for Parkinson's disease, atrial fibrillation (on Xarelto), HFpEF (55 to 60%, 01/03/2025), hypertension, and pulmonary hypertension who presented to [facility] ED from SNF on 02/25 for shortness of breath and increased work of breathing, admitted for acute hypoxic respiratory failure secondary to pneumonia. ? Hospital Course: Marvin Jackson 84M pmhx significant for Parkinson's disease, atrial fibrillation (on Xarelto), HFpEF (55 to 60%, 01/03/2025), hypertension, and pulmonary hypertension who presented to [facility] ED from SNF on 02/25 for shortness of breath and increased work of breathing, admitted for acute hypoxic respiratory failure secondary to pneumonia. Patient noted to have shortness of breath and work of breathing at SNF with O2 sat 86% at SNF, improved with Oxymask in ambulance. In ED, patient febrile tachycardic and tachypnic. Put on BiPAP with improvement. On admission WBC 7.7, lactic acid 3.2->2.4->4.6->3.1 following fluid boluses, procal 1.01. CXR significant pneumonia left base. Flu, COVID, RSV and cocci IgM neg. BCx no growth. UA clean. Patient was treated with antibiotics, breathing treatments and supplemental O2. Patient was of evaluated by COMMERCIAL REAL ESTATE ATTORNEY and subsequently underwent videofluoroscopy showing aspiration, recommending dysphagia 1 diet with no straws due to fluoroscopy findings. PT evaluation recommended to return to SNF. On admission patient also presented in atrial fibrillation rapid response resolved without rhythm or rate control. Of note, patient was noted to have acute exacerbation of HFpEF due to fluid boluses to clear lactic acidosis and was treated with diuretics with resolution. On discharge, patient is hemodynamically stable, saturating well on room air and ready to be discharged back to group home facility. ? #Acute hypoxic respiratory failure 2/2 #Left base Pneumonia Patient noted to have shortness of breath and work of breathing at SNF with O2 sat 86% at SNF, improved with Oxymask in ambulance. In ED, patient febrile tachycardic and tachypnic. Put on BiPAP with improvement. WBC 7.7, lactic acid 3.2->2.4->4.6->3.1, procal 1.01. CXR significant pneumonia left base. Flu, COVID, RSV and cocci IgM neg. BCx NGTD. UA clean. UCx contamination. Videofluoroscopy swallow showed aspiration with coughing PSI/port score 136 points, risk class V, 27 to 29.2% mortality with hospitalization recommended based on risk Azithromycin 500 mg QD (02/25-02/28) Plan: - Ceftriaxone 1g QD (02/25- - Duoneb q4h scheduled and q2h prn - Supplemental O2 as needed and downtitrate as tolerated - COMMERCIAL REAL ESTATE ATTORNEY: recommends dysphagia 1/MT2 diet with no straws given videofluoroscopy findings - PT: back to SNF ? #Acute Lt Shoulder Pain Lt shoulder is acutely tender on palpation -ordered US doppler LUE to rule out acute DVT ? #Acute excerbation of HFpEF, 55 to 60% 01/03/2025 On 02/28, patient noted to have coarse breath sounds during breathing treatment. Was given lasix 40 mg x1 due to previous fluid boluses to clear lactic acid. Chest x-ray showed mild vascular congestion with prominent pneumonia left base. Plan: - Resume home Lasix 20 mg BID - Condom catheter, strict I&Os ? #Atrial fibrillation RVR, resolved #Hx atrial fibrillation, on Xarelto #Severe pulmonary hypertension Presented in RVR until 2200 02/25, resolved without rhythm or rate control interventions in ED. At home on Xarelto, contributing to elevated INR, and metoprolol XL 25 mg QD. BNP 482 dec from 603 on previous admission. Echocardiogram on 01/07/2025 shows grade 2 diastolic dysfunction, LVEF 55 to 60%, estimated PASP 54 mmHg with severe pulmonary hypertension, moderate aortic valve sclerosis with mild stenosis and moderate regurg, mild mitral valve stenosis and severe regurgitation, and severe biatrial enlargement Plan: - Resumed home Xarelto 20 mg daily and metoprolol XL 25 mg QD - Keep K>4 and Mg>2 at all times ? #Lactic acidosis, resolved Lactic acid 3.2->2.4->4.6->3.1->2.6->1.7 following small fluid boluses in between iso HFpEF. Likely 2/2 respiratory failure. CK and BHB wnl. Plan: - Fluid boluses as tolerated prn ? #Parkinson's disease Per patient history and patient does take carbidopa levodopa 50-200 mg every 8 hours. Resting tremor was identified on examination on admission. Plan: - Resumed home carbidopa levodopa 50-1200 mg every 8 hours ? #Anemia, normocytic #Iron deficiency anemia, improved Has hx however Hgb on this admission 10.6 improved since last admission 7.9. Absolute reticulocyte count on 01/08/2025 was elevated at 75.8 with immature reticulocyte fraction elevated at 34.6% Iron panel on 12/30/2024 significant for low iron at 21 and low iron saturation at 5% Plan: - CTM CBC - Patient to follow-up outpatient for further workup ? #History of hypertension, primary Patient does have a history of hypertension that he takes losartan for. Patient noted to have a blood pressure of 95/70 on admission. Plan: - Hold home losartan iso soft BP ? Hospital management: Lines: PIV Diet: Cardiac, dysphagia 2 Bowel: Senna prn GI prophylaxis: not indicated DVT prophylaxis: Xarelto Disposition: tele, CTM respiratory status given aspiration seen on swallow study CODE STATUS: FULL CODE This case was discussed with my attending physician, Dr. Fernandez, and senior resident, Dr Barton. Even though this this note was carefully revised there may still be minor errors in appointment coordinator due to voice recognition software. Lamonte Leblanc DO PGY I Attending Provider Attestation/Addendum I have seen and examined the patient. I was physically present for the betancourt portions of the services provided including history, physical exam, diagnosis, treatment plans and orders. I agree with assessment and plan of care as documented by residents. Even though this this note was carefully revised there may still be minor errors in appointment coordinator due to voice recognition software. Tram Fernandez MD
--- NOTE | 2025-03-02 15:54 | XR_ITS ---
Examination: Duplex scan of the lower extremity, unilateral left arm INDICATIONS: Left arm swelling and pain today Date and time of exam: March 02, 2025, 1616 hours Technique: Duplex scan of the extremity veins using B-mode/grayscale imaging and Doppler spectral analysis and color flow Attention is directed to internal echogenicity, compression and augmentation involving these veins, color flow assessment, spectral analysis Findings: Major deep venous structures in the extremity demonstrate normal course and caliber. There is no evidence of deep vein thrombosis. Normal color flow and spectral analysis Impression: Negative for DVT..
[2025-03-03] VITALS (11 sets, daily range): BP systolic 105–124; BP diastolic 65–88; PULSE 55–94; RESP 16–99; TEMP 36.1–36.8; O2SAT 90–100
[2025-03-03] MEDS: CARBIDOPA/LEVODOPA CR 50/200 TABCR 1 TAB PO ×3 (01:08→17:03)
[2025-03-03 06:10] LABS: Basophils # (Auto) 0.0 Thou/mm3 (0.0-0.2); Basophils % (Auto) 0 % (0-2.5); Eosinophils # (Auto) 0.1 Thou/mm3 (0.0-0.5); Eosinophils % (Auto) 1 % (0-10); Hematocrit 28.0 % (41.0-53.0); Hemoglobin 8.9 g/dL (13.5-16.0); Immature Granulocytes Auto 0.13 Thou/mm3 (0.00-0.00); Lymphocytes # (Auto) 0.4 Thou/mm3 (1.0-4.8); Lymphocytes % (Auto) 12 % (10-50); Mean Corpuscular HGB Conc 31.8 g/dl (31.0-37.0); Mean Corpuscular Hemoglobin 29.0 pg (25.0-35.0); Mean Corpuscular Volume 91 fL (80-100); Monocytes # (Auto) 0.2 Thou/mm3 (0.0-0.8); Monocytes % (Auto) 7 % (0-12); Neutrophils # (Auto) 2.7 Thou/mm3 (1.8-7.7); Neutrophils % (Auto) 77 % (37-80); Nucleated Red Blood Cell # 0.00 Thou/mm3 (0.00-0.00); Nucleated Red Blood Cell % 0 /100 WBC (0); Platelet Count 276 Thou/mm3 (140-440); RDW Standard Deviation 80.9 fL (35.1-43.9); Red Blood Count 3.07 Miln/mm3 (4.50-5.90); White Blood Count 3.5 Thou/mm3 (3.8-10.6)
[2025-03-03 06:38] LABS: Alanine Aminotransferase < 7 U/L (10-49); Albumin, Serum 3.1 gm/dL (3.4-4.8); Albumin/Globulin Ratio 1.1 (1.2-2.2); Alkaline Phosphatase 79 U/L (46-116); Anion Gap 6 (7-16); Aspartate Amino Transferase < 8 U/L (0-34); BUN/Creatinine Ratio 21 Ratio (12-20); Bilirubin,Total 0.8 mg/dL (0.3-1.2); Blood Urea Nitrogen 15 mg/dL (9-23); Calcium 8.8 mg/dL (8.3-10.6); Calcium (Corrected) 9.5 mg/dL (8.5-10.1); Carbon Dioxide 28.3 mMol/L (20.0-31.0); Chloride 104 mMol/L (98-107); Creatinine (Component) 0.7 mg/dL (0.6-1.3); Estimated Creatinine Clearance 69.6 mL/min (>60); Globulin 2.8 gm/dL (2.3-3.5); Glucose 91 mg/dL (74-106); Osmolality,Calculated 276 (275-295); Potassium 4.2 mMol/L (3.4-5.1); Sodium 138 mMol/L (136-145); Total Protein 5.9 gm/dL (5.7-8.2); eGFR > 60 See Note
[2025-03-03] MEDS: ALBUTEROL/IPRATROPIUM (Duoneb) RT SOL 3 ML NEBU INH ×2 (07:12→15:53)
[2025-03-03] MEDS: METOPROLOL SUCCINATE XL 25 MG TABCR PO (08:46)
[2025-03-03] MEDS: RIVAROXABAN 10 MG TABLET 20 MG PO (08:46)
[2025-03-03] MEDS: cefTRIAXone/D5w 1gm IV premix 1 GM/50 ML BAG IV (08:46)
--- NOTE | 2025-03-03 09:20 | PC.SS ---
Addendum entered by Moira Gutiérrez 03/03/25 10:14: SS also attempted to contact Leandra from [facility] phone# [phone] and was only able to leave voicemail Addendum entered by Moira Gutiérrez 03/03/25 10:07: SS was able to contact Elizabeth CLIFFORD from [facility] who is contacting the upper caser for [facility], patient's health insurance to verifying insurance availability. SS has sent inquiry to [facility] using [employer]. Per Kerri at [facility], pt has Calpurse through [employer] POA plan. SS was informed by Zeinab CLIFFORD they are not the IPA and provided SS with phone# [phone] [employer] number. SS called and was provided with nicolas Khan's phone# [phone] which is member only number. Pt has a [facility] PPO Medicare plan. Addendum entered by Moira Gutiérrez 03/03/25 09:46: Correction SS was unable to leave voicemail. SS called phone# [phone] and was unable to speak with upper caser. SS attempted to call [employer] but had not connection with insurance claims processor and was disconnect 3 times. Original Note: Follow up note: SS received call from Stephanie career representative from patient's health insurance from the post side (follows up with pt after he is d/c from SNF or to home). Per Stephanie, the upper caser, Luis Fernando Bello is the nurse on the case and she is unable to provide SS with Luis Fernando's phone# or fax#. SS was able to provide Stephanie with SS contact information and she will email Luis Fernando the information. SS has spoke to Kerri from [facility] who provided phone# [phone] and was only able to leave voicemail.
--- NOTE | 2025-03-03 11:54 | PC.SS ---
Addendum entered by Moira Gutiérrez 03/03/25 12:25: SS received call from Rosanne from [employer] phone#[phone] or [phone] and transportation is setup for 5:45 to [facility]. Bedside nurseTiana is aware. Carmella BEEBE is aware and has been provided with [employer] phone#. Kerri from [facility] is aware. SS received call from patient's who is aware. Original Note: SS was informed by Kerri at [facility] she has received insurance authorization. Per Kerri at [facility], pt does not have Medical and is in the process of applying. SS has contacted Rosanne from [employer] for gurney transport for 3pm to [facility] and bedside nurseLizette is aware. Per Jason she will contact SS with transport time. SS has left vociemail for .
--- NOTE | 2025-03-03 15:57 | PD.RESDS ---
Planned Discharge Date 03/03/25 DS: Providers Provider Date of admission: 02/25/25 19:58 Primary care physician: Physician No Primary/Family Admitting Provider: Tram Fernandez MD Attending Provider on Admission: Tram Fernandez MD Consults: 02/26/25 07:07 Referral Wound Care Routine Comment: admitted from snf with stage one to coccyx 02/26/25 08:34 Referral Speech Therapy Routine Comment: 02/27/25 14:12 Referral Physical Therapy Urgent Comment: Physician Instructions: Instructions: Patient needs a PT eval/note for his SNF to re-accept him 02/28/25 15:38 Referral Nutritional Services Routine Comment: Wounds Attending Provider on DC: Lamonte Leblanc DO Discharging Provider: Lamonte Leblanc DO DS: Diagnosis Problem List Completed Was Problem List Reviewed/Reconciled?: Yes Hospital Course Hospital Course Hospital course: Summary: Marvin Jackson 84M pmhx significant for Parkinson's disease, atrial fibrillation (on Xarelto), HFpEF (55 to 60%, 01/03/2025), hypertension, and pulmonary hypertension who presented to [facility] ED from SNF on 02/25 for shortness of breath and increased work of breathing, admitted for acute hypoxic respiratory failure secondary to pneumonia. Patient noted to have shortness of breath and work of breathing at SNF with O2 sat 86% at SNF, improved with Oxymask in ambulance. In ED, patient febrile tachycardic and tachypnic. Put on BiPAP with improvement. On admission WBC 7.7, lactic acid 3.2->2.4->4.6->3.1 following fluid boluses, procal 1.01. CXR significant pneumonia left base. Flu, COVID, RSV and cocci IgM neg. BCx no growth. UA clean. Patient was treated with antibiotics, breathing treatments and supplemental O2. Patient was of evaluated by OCCUPATIONAL NURSE and subsequently underwent videofluoroscopy showing aspiration, recommending dysphagia 1 diet with no straws due to fluoroscopy findings. PT evaluation recommended to return to SNF. On admission patient also presented in atrial fibrillation rapid response resolved without rhythm or rate control. Of note, patient was noted to have acute exacerbation of HFpEF due to fluid boluses to clear lactic acidosis and was treated with diuretics with resolution. Patient satting well on RA and vital signs are stable. On discharge, patient is hemodynamically stable, saturating well on room air and ready to be discharged back to alf facility. Imaging: Echocardiogram on 01/07/2025 shows grade 2 diastolic dysfunction, LVEF 55 to 60%, estimated PASP 54 mmHg with severe pulmonary hypertension, moderate aortic valve sclerosis with mild stenosis and moderate regurg, mild mitral valve stenosis and severe regurgitation, and severe biatrial enlargement Chest x-ray showed mild vascular congestion with prominent pneumonia left base. Videofluoroscopy swallow showed aspiration with coughing US Doppler of Rt shoulder was negative for DVT Discharge Recommendations: - Please take all medications as prescribed - START antibiotics for two more days to complete full course for your pneumonia - START dysphagia diets and do not use straws as you were found to aspirate on videofluroscopy swallow study - Continue all home medications except as above - Please follow up with your PCP within one week of discharge - If your symptoms worsen, please seek immediate medical attention and return to your nearest emergency room. - If you do not have a PCP, you may follow up at the [facility] at [address] [place] [address] [address], [facility] [address], Hospital Diagnoses: #Acute hypoxic respiratory failure 2/2 #Left base Pneumonia #Acute excerbation of HFpEF, resolved, 55 to 60% 01/03/2025 #Atrial fibrillation RVR, resolved #Hx atrial fibrillation, on Xarelto #Severe pulmonary hypertension #Lactic acidosis, resolved #Parkinson's disease #Anemia, normocytic #Iron deficiency anemia, improved #History of hypertension, primary Plan of care discussed with attending Dr. Fernandez, and senior resident Dr. Wynn. Lamonte Leblanc, PGY 1 Senior Resident Attestation: I discussed with and supervised the internet technology manager physician involved in the care of this patient. I personally saw and examined the patient and discussed the assessment and plan with the entire medicine team, including my attending. I agree with the discharge plan as documented above. Tye Wynn MD PGY3 Internal Medicine Time Spent with Patient Time attestation: Total time spent providing and/or coordinating discharge services: 33 minutes Time spent: Greater than 30 minutes Exam Vital Signs Temp Pulse Resp BP Pulse Ox O2 Del Method O2 Flow Rate 97.9 F 78 22 H 105/65 98 Room Air 2.5 03/03/25 12:00 03/03/25 15:54 03/03/25 15:54 03/03/25 12:00 03/03/25 15:54 03/03/25 12:00 02/27/25 16:00 FiO2 30 02/28/25 07:29 Narrative Exam GENERAL: AOx3, no acute distress, Parkinson tremors HEENT: mucous membranes dry, bilateral sclera anicteric CARDIOVASCULAR: regular rate and irregular rhythm, S1/S2 present, no murmurs appreciated PULMONARY: diminished breath sounds L base, mild coarse expiratory breath sounds Rt base ABDOMINAL: soft, non-tender, non-distended, no rebound/guarding, bowel sounds present EXTREMITIES: no peripheral edema SKIN: warm and dry, intact, no rashes NEURO: CN II-XII grossly intact, no focal deficits, alert, following commands Discharge Plan Plan Patient Disposition: Xfer Skilled Nsg Fac (SNF) Patient condition on transfer: Stable and Benefits outweigh risks Care Plan Goals: - You have been started on anitbiotics for your pneumonia. Take for 2 more days - You have been started on a thickened liquid and pur?ed diet by speech therapy to prevent further episodes of aspiration. - Continue the rest of your home medications as before. - Follow up with your primary care physician within 1 week of discharge. If you do not have a primary care physician, please follow up with the [facility] Residents clinic ([phone]) ? If you experience any new, worsening or persistent symptoms either call your primary doctor, or dial 911 or present to the emergency department. Prescriptions/Referrals Prescriptions/Med Rec: New amoxicillin-pot clavulanate 875-125 mg tablet 1 tab PO BID 2 Days Qty: 4 0RF Rx Instructions: received 5 days of treatment. Start on 03/02 to complete 7 days total for CAP Continued ipratropium-albuterol 0.5 mg-3 mg(2.5 mg base)/3 mL solution for nebulization 3 ml INHALATION Q6H PRN (Reason: shortness of breath) metoprolol succinate 25 mg tablet extended release 24 hr 25 mg PO DAILY furosemide [Lasix] 20 mg tablet 20 mg PO Q12H carbidopa-levodopa 50-200 mg tablet extended release 1 tab PO TID Rx Instructions: divide evenly over waking hours losartan 50 mg tablet 50 mg PO QDAY Xarelto 20 mg tablet 20 mg PO QDAY Rx Instructions: must administer with evening meal Referrals: [facility] [Outside] No Primary/Family,Physician [Primary Care Provider] Patient/Caregiver Discharge Instructions Education Materials: What Is Pneumonia?, When You Have Pneumonia, Larynx Exercises, Dysphagia Aspiration, Dysphagia Diet- Managing Drinks, Dysphagia Diet- Managing Foods, Dysphagia Aspiration Tx Print Language: Somali Stand Alone Forms: Angie Award Info., Patient Portal Info Letter Discharge Order Discharge Orders: Discharge (Routine); Ordered 03/03/25 Ordered By: Mk Barton Quality Discharge Quality Measures VTE prophylaxis Attestestation MD Attestation I have seen and examined the patient. I was physically present for the betancourt portions of the services provided including history, physical exam, diagnosis, treatment plans and orders. I agree with assessment and plan of care as documented by residents. Even though this this note was carefully revised there may still be minor errors in tank house operator helper due to voice recognition software. Tram Fernandez MD
== END 2025-03-03 18:00 | disposition skilled nursing facility (03) | DRG 193 ==
LOC: SERX 20:52 → SERHOLD 20:54 → S2NX 02-26 00:58
PROVIDERS: Emergency Medicine; Admitting Provider Student in an Organized Health Care Education/Training Program; Emergency Provider Emergency Medicine; Visit Provider Student in an Organized Health Care Education/Training Program
DX: J18.9 Pneumonia, unspecified organism (principal); I50.33 Acute on chronic diastolic (congestive) heart failure; J96.01 Acute respiratory failure with hypoxia; J44.0 Chronic obstructive pulmonary disease with (acute) lower respiratory infection; E87.20 Acidosis, unspecified; I11.0 Hypertensive heart disease with heart failure; E86.9 Volume depletion, unspecified; I27.20 Pulmonary hypertension, unspecified; Z79.01 Long term (current) use of anticoagulants; G20.A1 Parkinson's disease without dyskinesia, without mention of fluctuations; I48.91 Unspecified atrial fibrillation; Z99.81 Dependence on supplemental oxygen; D50.9 Iron deficiency anemia, unspecified; Z79.899 Other long term (current) drug therapy
CPT/HCPCS: 36415; 71045; 74230; 80053; 80069; 81001; 82010; 82550; 82803; 83605; 83690; 83735; 83880; 84145; 84484; 85025; 85610; 85730; 86331; 86635; 87040; 87081; 87086; 87502; 87634; 87635; 92526; 92610; 93005; 93971; 94640; 94644; 94660; 96365; 96366; 96375; 97162; 99285; A9270; J0131; J0456; J0696; J1938; J2919; J3480; J7030; J7050; J7120; J7644; J7611